=== PATIENT | male | born 1930 | race Caucasian/White ===

== ENCOUNTER → 2018-01-05 | Outpatient (CLI) | payer OTHER, BC ==
--- NOTE | 2018-01-05 11:32 | DIAGNOSTIC IMAGING REPORT ---
LUMBAR SPINE WITHOUT CT DOSE: 448.75 mGycm HISTORY: Trauma. Pain. COMPRESSION FX UNSPECIFIED TECHNIQUE: Multiaxial CT images of the lumbar spine were performed and reformatted in the sagittal and coronal plane without the use of contrast. A dose lowering technique was utilized adhering to the principles of ALARA. COMPARISON: None. FINDINGS: Moderate compression deformity L1. Estimated loss vertebral body height is 50%. Partial retropulsion of the posterior margin of the L1 vertebral body x 5 mm. No major compromise of the spinal canal. Considerable degenerative disc change throughout the entire lumbar region. Operative changes consistent with posterior laminectomy and fusion from L4 through S1. No additional compression deformity. Moderate narrowing of the neuroforamina bilaterally at the L1-L2 level. IMPRESSION: 1. 50% compression deformity L1. 2. 5 mm posterior displacement of the posterior margin of L1. 3. No significant compromise of the spinal canal. 4. Moderate multifactorial narrowing of the neuroforamina bilaterally at L1-2. 5. Degenerative and postoperative change throughout the remainder the lumbar region. The above report was generated using voice recognition software. It may contain grammatical, syntax or spelling errors. Electronically signed by: Patrick Kowalski M.D. 01/05/2018 11:31 AM Dictated Date/Time: 01/05/2018 11:24 AM
== END | disposition home or self-care (01) ==
LOC: C.CTS 10:53
PROVIDERS: ATTEND Family Medicine
DX: S32.000G Wedge compression fracture of unspecified lumbar vertebra, subsequent encounter for fracture with delayed healing (principal); X58.XXXD Exposure to other specified factors, subsequent encounter

== ENCOUNTER 2018-10-25 02:50 | Inpatient (IN) ==
--- OUTSIDE RECORDS SUMMARY | 2018-10-25 05:16 | External Medical Summary | Continuity of Care Document ---
:1930 Author Name Felicia Lion, Provider Address Unavailable Unavailable , Care Team Providers Name Role Phone Matthias KATZ M.D., E. 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 12-Apr-2018 13:45 Encounter Diagnosis: Problem not documented
[2018-10-25] MEDS ORDERED: MoRPHine SULFATE 4 MG/ML 1 ML CARP\\VIAL IV PRN ×2 (05:17→16:20)
[2018-10-25] MEDS ORDERED: TRAMADOL HCL 50 MG TABLET PO PRN (05:17)
[2018-10-25] MEDS ORDERED: NITROGLYCERIN SL 0.4 MG/TAB TAB SL PRN (05:17)
[2018-10-25] MEDS ORDERED: ACETAMINOPHEN 325 MG TAB PO PRN (05:17)
[2018-10-25] MEDS ORDERED: PROMETHAZINE HCL 12.5 MG in SODIUM CHLORIDE 0.9% 50 ML IV PRN (05:17)
[2018-10-25] MEDS ORDERED: SODIUM CHLORIDE 0.45 % 1,000 ML IV SCH (06:00)
[2018-10-25 06:09] LABS: Basophils # (auto) 0.02 K/uL (0-0.2); Basophils % (auto) 0.2 %; Hemoglobin 14.8 g/dL (14.0-18.0); Immature Granulocytes # (auto) 0.03 K/uL (0.00-0.02); Immature Granulocytes % (auto) 0.2 %; Lymphocytes # (auto) 1.12 K/uL (1.2-3.4); Lymphocytes % (auto) 8.9 %; Mean Corpuscular Hgb Conc 34.4 g/dL (32-36); Mean Corpuscular Volume 93.1 fL (80-100); Mean Platelet Volume 11.1 fL (7.4-10.4); Monocytes # (auto) 1.03 K/uL (0.11-0.59); Monocytes % (auto) 8.2 %; Neutrophils # (auto) 10.32 K/uL (1.4-6.5); Neutrophils % (auto) 82.5 %; Platelet Count 128 K/uL (130-400); RDW Coefficient of Variation 14.2 % (11.5-14.5); RDW Standard Deviation 48.3 fL (36.4-46.3); Red Blood Count 4.62 M/uL (4.7-6.1); White Blood Count 12.52 K/uL (4.8-10.8)
[2018-10-25 06:39] LABS: Albumin Level 3.4 gm/dl (3.4-5.0); BUN Creatinine Ratio 15.1 (10-20); Calcium 8.1 mg/dl (8.5-10.1); Creatinine Clr Calc Pharmacy 45.1 ml/min; Est GFR (African American) 70.1; Est GFR (Non-African American) 60.5; Magnesium 1.7 mg/dl (1.8-2.4); Potassium 4.1 mmol/L (3.5-5.1)
[2018-10-25 06:50] LABS: Albumin Globulin Ratio 1.1 (0.9-2); Bilirubin,Total 0.6 mg/dl (0.2-1); Globulin 3.1 gm/dl (2.5-4.0); Total Protein 6.5 gm/dl (6.4-8.2)
[2018-10-25] MEDS ORDERED: MAGNESIUM SULFATE / D5W 1 GM/100 ML BAG IV STA (07:01)
--- NOTE | 2018-10-25 07:02 | History & Physical Report ---
Date of Service October 25, 2018 Assessment & Plan (1) Sepsis: Secondary to acute cholecystitis sinoatrial dysfunction status post PPM, paced rhythm Elevated BP likely chronic hypertension given cardiomegaly on imaging prostate cancer status post radiation, gout Hyperglycemia rule out DM past tobacco/alcohol abuse Medical telemetry Follow cultures from [facility], IV Zosyn Surgery consult RE cholecystitis Initiate lisinopril for hypertension Check hemoglobin A1c DVT prophylaxis SCDs RE possible surgery Recommend pharmacologic anticoagulation with Lovenox 30 mg SQ daily once bleeding risk is deemed to be minimal and negligible pending Surgery eval. Full code History of Present Illness Chief Complaint: Cholecystitis [facility] History obtained from patient, family, and records. Medical history significant for sinoatrial dysfunction status post PPM, prostate cancer status post radiation, gout, restless leg syndrome, mood disorder, past tobacco/alcohol abuse. Patient noted junky cough later noted to be dry symptoms the last 2 weeks without chest pain, shortness of breath, fever chills. Patient stated to see PCP next week. Last night after a salad dinner, patient experience achy midepigastric pain followed by nausea and emesis. Intensity of 10. Patient brought to [facility] ER. WBC noted to be 11, lactic acid was 2.1, LFTs and lipase were normal. Blood cultures obtained. CT chest showed bilateral bibasilar atelectatic pulmonary changes with associated groundglass densities. Cardiomegaly. No pulmonary embolism, sliding hiatal hernia. CT abdomen pelvis: Suspect developing acute cholecystitis. rectosigmoid junction thickening under distention versus mild colitis., No aortic dissection. Patient received Azithromycin, Unasyn at the ER. Patient requested transfer to [facility] for surgical evaluation. 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 Allergies Allergy/AdvReac Type Severity Reaction Status Date / Time aspirin AdvReac Unknown Verified 03/28/18 08:07 Home Medications Home Medications Medication Instructions Recorded Confirmed Type allopurinol 300 mg PO DAILY 03/14/18 10/25/18 History escitalopram oxalate [Lexapro] 10 mg PO DAILY 03/14/18 10/25/18 History Past Med/Surg History Medical History Hypertension LATONIA on CPAP Pacemaker (Acute) Prostate cancer (Acute) Surgical History H/O thumb surgery (Acute) History of back surgery (Acute) Social History Preferred Language: Tunisian Communication Ability: Effective Fruit Or Nut Grower Required: No Beliefs That Will Affect Care: None Current Living Situation: Spouse Other Information That Helps Us Care for You: No Feels Safe at Home: Yes Safety Concerns: Feels Safe At This Time Smoking Status: Never smoker Hx Alcohol Use: No Hx Substance Use: No Review of Systems Review of Systems: As per HPI, all 10 systems reviewed, all other ROS negative Physical Exam Physical Exam: GENERAL: Comfortable, slightly hard of hearing, no respiratory distress SKIN: Normal color, warm HEENT: [place] palpebral conjunctivae, no ptosis, dry buccal mucosa, nasal cannula in place NECK : Supple, no tenderness CHEST : Decreased breath sounds , no tenderness HEART : RRR, no obvious murmurs ABDOMEN: Some distention, nontender EXTREMITIES : No LE swelling/tenderness, no other conspicuous deformities noted NEUROLOGIC : Coherent, no facial asymmetry, mild hearing impairment, no other gross focality Results & Data Vital Signs (Past 12 Hours) Vital Signs Temp Pulse Pulse Resp BP Pulse Ox 10/25/18 06:19 65 10/25/18 05:31 36.9 C 62 20 163/74 H 96 10/25/18 05:15 36.9 C 62 20 163/74 H 96 Laboratory Results Laboratory Results WBC 12.52 K/uL (4.8-10.8) H 10/25/18 05:59 RBC 4.62 M/uL (4.7-6.1) L 10/25/18 05:59 Hgb 14.8 g/dL (14.0-18.0) 10/25/18 05:59 Hct 43.0 % (42-52) 10/25/18 05:59 MCV 93.1 fL (80-100) 10/25/18 05:59 MCH 32.0 pg (25-34) 10/25/18 05:59 MCHC 34.4 g/dL (32-36) 10/25/18 05:59 RDW Std Deviation 48.3 fL (36.4-46.3) H 10/25/18 05:59 RDW Coeff of Tom 14.2 % (11.5-14.5) 10/25/18 05:59 Plt Count 128 K/uL (130-400) L 10/25/18 05:59 MPV 11.1 fL (7.4-10.4) H 10/25/18 05:59 Immature Gran % (Auto) 0.2 % 10/25/18 05:59 Neut % (Auto) 82.5 % 10/25/18 05:59 Lymph % (Auto) 8.9 % 10/25/18 05:59 [place] % (Auto) 8.2 % 10/25/18 05:59 Eos % (Auto) 0.0 % 10/25/18 05:59 Baso % (Auto) 0.2 % 10/25/18 05:59 Immature Gran # (Auto) 0.03 K/uL (0.00-0.02) H 10/25/18 05:59 Neut # (Auto) 10.32 K/uL (1.4-6.5) H 10/25/18 05:59 Lymph # (Auto) 1.12 K/uL (1.2-3.4) L 10/25/18 05:59 [place] # (Auto) 1.03 K/uL (0.11-0.59) H 10/25/18 05:59 Eos # (Auto) 0.00 K/uL (0-0.5) 10/25/18 05:59 Baso # (Auto) 0.02 K/uL (0-0.2) 10/25/18 05:59 Sodium 138 mmol/L (136-145) 10/25/18 05:59 Potassium 4.1 mmol/L (3.5-5.1) 10/25/18 05:59 Chloride 106 mmol/L (98-107) 10/25/18 05:59 Carbon Dioxide 26 mmol/L (21-32) 10/25/18 05:59 6.0 (3-11) 10/25/18 05:59 BUN 17 mg/dl (7-18) 10/25/18 05:59 1.10 mg/dl (0.6-1.4) 10/25/18 05:59 Est Cr Clr Drug Dosing 45.1 ml/min 10/25/18 05:59 Est GFR ( Amer) 70.1 10/25/18 05:59 Est GFR (Non-Af Amer) 60.5 10/25/18 05:59 15.1 (10-20) 10/25/18 05:59 Glucose 155 mg/dl (70-99) H 10/25/18 05:59 1.9 mmol/L (0.4-2.0) 10/25/18 05:59 Calcium 8.1 mg/dl (8.5-10.1) L 10/25/18 05:59 Magnesium 1.7 mg/dl (1.8-2.4) L 10/25/18 05:59 0.6 mg/dl (0.2-1) 10/25/18 05:59 AST 18 U/L (15-37) 10/25/18 05:59 ALT 17 U/L (12-78) 10/25/18 05:59 88 U/L (45-117) 10/25/18 05:59 6.5 gm/dl (6.4-8.2) 10/25/18 05:59 3.4 gm/dl (3.4-5.0) 10/25/18 05:59 3.1 gm/dl (2.5-4.0) 10/25/18 05:59 1.1 (0.9-2) 10/25/18 05:59 TSH 1.550 uIu/ml (0.300-4.500) 10/25/18 05:[address] angios chest, abdomen and pelvis as per HPI EKG as per my interpretation ([facility] 10/25/2018) : Rate 65, paced rhythm
[2018-10-25 07:21] LABS: Estimated Average Glucose 143 mg/dl; Hemoglobin A1C 6.6 % (4.5-5.6)
[2018-10-25] MEDS ORDERED: PIPERACILL/TAZOBAC CONSULT ACTIVE PRN (07:28)
[2018-10-25] MEDS ORDERED: PIPERACILLIN/TAZOBACTAM 4.5 GM in DEXTROSE 5% 100 ML IV STA (07:30)
[2018-10-25] MEDS: SODIUM CHLORIDE 0.9% 1000ML 1,000 ML IV SCH ×2 (07:32→16:39)
[2018-10-25] MEDS ORDERED: LISINOPRIL 2.5 MG TAB PO SCH (08:00)
--- NOTE | 2018-10-25 11:16 | Ultrasound Report ---
US gallbladder HISTORY: Abnormal CT exam. ? cholecystitis on CT COMPARISON: None. FINDINGS: Gallbladder contains multiple gallstones. Gallbladder jordan 4 mm. There is a trace amount of perichol ecystic fluid. Common bile duct is 6 mm. Liver is uniform throughout. The pancreas and right kidney are unremarkable . IMPRESSION: 1. Ultrasound findings of acute cholecystitis. 2. Gallstones as well as pericholecystic fluid are present. 3. Normal caliber bile ducts. The above report was generated using voice recognition software. It may contain grammatical, syntax or spelling errors. Electronically signed by: Patrick Kowalski M.D. 10/25/2018 11:15 AM
--- NOTE | 2018-10-25 12:26 | Surgery Consultation ---
Date of Consultation October 25, 2018 Assessment & Plan (1) Acute cholecystitis: Ultrasound confirms acute cholecystitis, will plan for laparoscopic cholecystectomy today by Dr. Gonzalez. Supervising Physician Co-Signing Physician Notes Patient seen and examined, agree with above. 88-year-old male transferred from [facility] for evaluation of cholecystitis. Ultrasound confirms cholelithiasis with acute cholecystitis. Plan for laparoscopic cholecystectomy, possible cholangiogram, possible open. The risks the procedure were discussed to include but not limited to bleeding, infection, conversion to open, damage to surrounding structures including bile ducts, retained stone, need for future khoury of surgery, and the risk of anesthesia. History of Present Illness Attending Physician: Krista Malagon MD History of Present Illness 88 y/o male with epigastric pain rather sudden onset last night after eating a salad at dinner. Made himself vomit with no relief of symptoms. Went to [place] ER was transferred here for possible acute cholecystitis on CT. No previous RUQ pain or epigastric pain, or fatty food intolerance. No previous abdominal surgery. Allergies Allergy/AdvReac Type Severity Reaction Status Date / Time aspirin AdvReac Unknown Verified 03/28/18 08:07 Home Medications Home Medications Medication Instructions Recorded Confirmed Type allopurinol 300 mg PO DAILY 03/14/18 10/25/18 History escitalopram oxalate [Lexapro] 10 mg PO DAILY 03/14/18 10/25/18 History Patient History Medical History Hypertension LATONIA on CPAP Pacemaker (Acute) Prostate cancer (Acute) Surgical History H/O thumb surgery (Acute) History of back surgery (Acute) Social History Preferred Language: Somali Communication Ability: Effective Senior Security Analyst Required: No Beliefs That Will Affect Care: None Current Living Situation: Spouse Other Information That Helps Us Care for You: No Feels Safe at Home: Yes Safety Concerns: Feels Safe At This Time Smoking Status: Never smoker Hx Alcohol Use: No Hx Substance Use: No Review of Systems Constitutional: no fever, no chills and no anorexia Respiratory: no cough and no pain on inspiration Cardiovascular: no chest pain and no chest pain at rest Gastrointestinal: + abdominal pain, + nausea and + vomiting; no bloating Physical Exam Constitutional: WD/WN, vitals as above no acute distress Respiratory: normal respiratory effort, lungs clear to auscultation Cardiovascular: RRR, no murmur, no edema Gastrointestinal (Abdomen): Inspection/Auscultation: abdomen not distended Percussion/Palpation: + abdomen tender (mild RUQ) and abdomen soft Skin: no rashes, warm and dry Results & Data Vital Signs (Past 12 Hours) Vital Signs Temp Pulse Pulse Pulse Resp BP BP 10/25/18 11:26 36.9 C 67 18 150/72 H 10/25/18 08:02 63 10/25/18 07:29 36.9 C 56 L 18 164/75 H 10/25/18 06:19 65 10/25/18 05:31 36.9 C 62 20 163/74 H 10/25/18 05:15 36.9 C 62 20 163/74 H Pulse Ox 10/25/18 11:26 94 10/25/18 08:02 10/25/18 07:29 93 10/25/18 06:19 10/25/18 05:31 96 10/25/18 05:15 96 Diagnostic Findings US gallbladder HISTORY: Abnormal CT exam. ? cholecystitis on CT COMPARISON: None. FINDINGS: Gallbladder contains multiple gallstones. Gallbladder jordan 4 mm. There is a trace amount of pericholecystic fluid. Common bile duct is 6 mm. Liver is uniform throughout. The pancreas and right kidney are unremarkable. IMPRESSION: 1. Ultrasound findings of acute cholecystitis. 2. Gallstones as well as pericholecystic fluid are present. 3. Normal caliber bile ducts. The above report was generated using voice recognition software. It may contain grammatical, syntax or spelling errors. Electronically signed by: Patrick Kowalski M.D. 10/25/2018 11:15 AM
--- NOTE | 2018-10-25 12:34 | Anesthesiology Consultation ---
Date of Service October 25, 2018 Assessment & Plan (1) Encounter for pre-operative examination: Chart Review Chart Review: Acceptable Risk for Surgery ASA ASA3 Proposed Anesthesia Anesthesia Type: General History Surgery Operation Date: 10/25/18 11:00 Proposed Procedures p Laparoscopic Cholecystectomy - Naldo Gonzalez DO, FACS Height/Weight Height: 5 ft 7 in Weight: 68.039 kg Allergies Allergy/AdvReac Type Severity Reaction Status Date / Time aspirin AdvReac Unknown Verified 03/28/18 08:07 Medications Home Medications Medication Instructions Recorded Confirmed Last Taken allopurinol 300 mg PO DAILY 03/14/18 10/25/18 Unknown escitalopram oxalate [Lexapro] 10 mg PO DAILY 03/14/18 10/25/18 Unknown Active Medications Generic Name Dose Route Start Last Admin Trade Name Freq PRN Reason Stop Dose Admin Sodium Chloride 1,000 mls @ 60 mls/hr 10/25/18 07:15 10/25/18 09:23 Nss 1000ml IV 11/24/18 07:14 60 mls/hr .[id number] ALICE Infusion Past Medical History Medical History Hypertension LATONIA on CPAP Pacemaker (Acute) Prostate cancer (Acute) Past Surgical History Surgical History H/O thumb surgery (Acute) History of back surgery (Acute) Social History Smoking Status: Never smoker Hx Alcohol Use: No Hx Substance Use: No Physical Exam Vital Signs Last Vital Signs Temp 36.9 C 10/25/18 11:26 Pulse 67 10/25/18 11:26 Resp 18 10/25/18 11:26 BP 150/72 H 10/25/18 11:26 Pulse Ox 94 10/25/18 11:26 Testing Electrocardiogram Date: 10/25/18 apaced, nonspecific ST and T wave changes, HR 62 Other Testing Laboratory Tests 10/25/18 10/25/18 10/25/18 05:59 05:59 05:59 WBC 12.52 H Hgb 14.8 Plt Count 128 L Sodium 138 Potassium 4.1 BUN 17 Creatinine 1.10 Glucose 155 H Hemoglobin A1c 6.6 H
[2018-10-25] MEDS ORDERED: LIDOCAINE HCL 2% 2 ML VIAL/AMP(20MG/ML) INFIL ONE (12:36)
[2018-10-25] MEDS ORDERED: PROPOFOL IV EMULSION 10 MG/ML 20 ML VIAL IV ONE (12:36)
[2018-10-25] MEDS ORDERED: ROCURONIUM BROMIDE 10 MG/ML 5 ML VIAL ONE (12:36)
[2018-10-25] MEDS ORDERED: fentaNYL citrate 100 MCG/2 ML VIAL ONE ×2 (12:37→14:35)
[2018-10-25] MEDS ORDERED: BUPIVACAINE 0.5 % 5 MG/1 ML MPF 30ML VIAL ONE (12:41)
[2018-10-25] MEDS: PIPERACILLIN/TAZOBACTAM 3.375 GM in DEXTROSE 5% 100 ML IV SCH ×2 (13:28→21:47)
[2018-10-25] MEDS ORDERED: ACETAMINOPHEN 1000 MG/100 ML IV IV ONE (13:52)
[2018-10-25] MEDS ORDERED: ONDANSETRON INJ 2 MG/ML 2 ML VIAL ONE (14:14)
[2018-10-25] MEDS ORDERED: VASOPRESSIN 20 UNIT/ML VIAL ONE (14:14)
[2018-10-25] MEDS ORDERED: PHENYLEPHRINE 100MCG/ML 5ML SYR ONE (14:14)
[2018-10-25] MEDS ORDERED: NEOSTIGMINE METHYLSULFATE 5 MG/5 ML SYR ONE (14:14)
[2018-10-25] MEDS ORDERED: ESMOLOL HCL INJ 10 MG/ML 10ML VIAL IV ONE (14:14)
[2018-10-25] MEDS ORDERED: GLYCOPYRROLATE 0.2 MG/ML VIAL ONE (14:14)
[2018-10-25] MEDS: ALLOPURINOL 300 MG TAB PO SCH (14:22)
[2018-10-25] MEDS: ESCITALOPRAM OXALATE 10 MG TAB PO SCH (14:22)
--- NOTE | 2018-10-25 14:50 | Operative Report ---
Post Operative Report Pre & Post Diagnosis Operation Date: 10/25/18 11:00 Pre-Op Diagnosis: Acute cholecystitis Post-Op Diagnosis: Acute cholecystitis Procedure Operation Date: 10/25/18 11:00 Actual Procedures p Laparoscopic Cholecystectomy - Naldo Gonzalez DO, TIM Surgeon Naldo Gonzalez DO, TIM Drier Transfer Car Operator Marshal Moody Estimated Blood Loss 15 Findings Consistent with Post-Op Diagnosis Significant inflammation of the gallbladder. Aspirated to assist with retraction. Critical view of safety obtained, cystic duct and artery doubly clipped and divided. Additional posterior branches of the cystic artery clipped and divided. Subxiphoid incision extended to allow for removal of the gallbladder. Hemostasis good. Specimens Gallbladder Anesthesia Type General Complications none Disposition Accompanied Patient To Recovery: No Disposition: Recovery Room Indications 88-year-old male transferred from [facility] for acute cholecystitis, plan for laparoscopic cholecystectomy, possible cholangiogram, possible open. The risks of the procedure were discussed, all questions were answered, and the patient agreed to proceed with surgery as planned. Description of Procedure The patient was properly identified, consented, and taken to the operating room where he was placed in the supine position. General endotracheal anesthesia was induced. SCDs and a safety belt were placed. Preoperative antibiotics were administered. The patient's abdomen was prepped and draped in the standard sterile fashion. A surgical timeout was performed and all parties were in agreement that this was the correct patient and procedure to be performed and we continued as planned. An incision was made superior and to the left of the umbilicus overlying the rectus muscle and the Veress needle was inserted. Saline drop test confirmed entry into the peritoneum. The abdomen was insufflated with carbon dioxide which the patient tolerated without incident. The abdomen was then entered using the Optiview technique and a 5 mm trocar. The laparoscope was inserted and no damage from initial trocar or Veress needle placement was noted, no gross abnormalities were noted within the 4 quadrants of the abdomen. An 11 mm port was placed in the subxiphoid position and two 5 mm ports were then placed in the right subcostal position. The patient was placed in reverse Trendelenburg position and rotated towards the left. The gallbladder was significantly inflamed. We aspirated the gallbladder to allow for retraction. The dome of the gallbladder was retracted towards the left upper quadrant and the infundibulum was retracted toward the right lower quadrant revealing Calot's triangle. Peritoneal attachments were taken down with electrocautery and blunt dissection. The cystic duct and artery were circumferentially dissected. A window of safety was obtained showing the cystic duct entering the gallbladder with no aberrant structures noted. The cystic duct and artery were doubly clipped and divided. There were 2 small posterior branches of the cystic artery were clipped and divided. The gallbladder was then lifted off the gallbladder fossa with electrocautery. The gallbladder was placed in an Endo Catch bag and removed through the subxiphoid port site. Both the skin and fascial incisions need to be extended to allow for the gallbladder to be removed. Upon palpation of the gallbladder there were multiple small to large stones filling the entirety of the gallbladder. The right upper quadrant was irrigated and hemostasis was found to be good. 5 mm trochars were removed under direct visualization and the abdomen was allowed to collapse. The subxiphoid port site fascia was closed with 0 Vicryl interrupted [id number] suture. The wound was irrigated, and the skin of all ports was closed with 4-0 Monocryl subcuticular sutures. Dermabond was placed over the wounds. The patient was extubated in the operating room and taken to the PACU where he recovered without apparent incident. All sponge, instrument and needle counts were correct at the conclusion of the procedure. The patient tolerated the procedure well. The physician's hearing aid assistant was present and scrubbed for the entirety of the case and was essential in positioning the patient, prepping and draping, retraction and exposure, driving the laparoscope, removal of the gallbladder, closure the incisions, and placement of the dressings. I attest to the content of the Intraoperative Record and any orders documented therein. Any exceptions are noted below.
[2018-10-25] MEDS ORDERED: ePHEDrine sulfate 50 MG/ML AMP IV PRN (15:46)
[2018-10-25] MEDS ORDERED: ATROPINE SULFATE 0.1 MG/ML 10ML SYR IV PRN (15:46)
--- NOTE | 2018-10-25 15:49 | Anesthesiology Progress Note ---
Date of Service October 25, 2018 Anesthesia Post Procedure Vital Signs Vital Signs: Temp Pulse Pulse Pulse Pulse Resp BP 10/25/18 15:35 70 21 158/69 H 10/25/18 15:25 36.7 C 69 18 144/90 H 10/25/18 15:15 72 20 154/72 H 10/25/18 15:05 71 21 149/73 H 10/25/18 14:58 36.6 C 85 18 152/71 H 10/25/18 12:56 36.9 C 68 20 151/70 H 10/25/18 11:26 36.9 C 67 18 150/72 H 10/25/18 08:02 63 10/25/18 07:29 36.9 C 56 L 18 10/25/18 06:19 65 10/25/18 05:31 36.9 C 62 20 10/25/18 05:15 36.9 C 62 20 BP Pulse Ox 10/25/18 15:35 95 10/25/18 15:25 97 10/25/18 15:15 97 10/25/18 15:05 97 10/25/18 14:58 96 10/25/18 12:56 94 10/25/18 11:26 94 10/25/18 08:02 10/25/18 07:29 164/75 H 93 10/25/18 06:19 10/25/18 05:31 163/74 H 96 10/25/18 05:15 163/74 H 96 Pain Intensity Abdomen: Pain Intensity: 0 Transfer of Care Handoff Completed per policy Notes Mental Status: alert / awake / arousable and participated in evaluation Patient Amnestic to Procedure: Yes Nausea / Vomiting: adequately controlled Pain: adequately controlled Airway Patency, RR, SpO2: stable & adequate BP & HR: stable & adequate Hydration State: stable & adequate Anesthetic Complications: no major complications apparent and Pt Satisfied with anesthetic care Notes: The patient is an 88 s/p laparoscopic cholecystectomy with Dr. Gonzalez. The patient is doing well in recovery with no complaints. He is saturating 95% on 3L nc which is similar to his preoperative baseline. He will be returning to telemetry for closer monitoring.
[2018-10-25] MEDS ORDERED: MoRPHine SULFATE 2 MG/ML CARP IV PRN (16:20)
--- NOTE | 2018-10-25 19:17 | Hospitalist Progress Note ---
Date of Service October 25, 2018 Assessment & Plan (1) Sepsis: Secondary to acute cholecystitis Lactic acid improved with IV fluids, patient is continue with Zosyn, Surgery consulted, status post laparoscopic cholecystectomy (2) Acute cholecystitis: Presented with right upper quadrant pain, acid with sepsis, elevated lactic acid, fever chills Ultrasound of gallbladder: 1. Ultrasound finding of acute cholecystitis. 2. Gallstones as well as pericholecystic fluids are present Appreciate input from surgery Status post laparoscopic cholecystectomy today (3) Aspiration pneumonitis: Patient had severe right upper quadrant pain, nausea, Had self-induced vomiting: He inserted fingers back of the throat to induce vomiting as was having severe discomfort from abdominal bloating bloating and pain Concern for aspiration pneumonitis: CT Chest/abdomen pelvis done in [facility] shows possible groundglass opacity in the lung Continue empiric antibiotic with IV Zosyn Patient remains afebrile, no cough, hypoxia noted Patient does not have any nausea vomiting postoperatively, Order for clear liquid diet, with aspiration precaution Ordered for chest x-ray Requested medical records/CT imaging to be sent from [facility] (4) 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, heart rate stable (5) Hypertension: Blood pressure stable: We will hold lisinopril, To prevent dehydration,-in the setting of infection/sepsis/acute cholecystitis/the status post cholecystectomy CODE STATUS: Full code DVT prophylaxis: SCD and teds, patient will be encouraged to ambulate as recovers from anesthesia Disposition: Expected to be discharged home in next 24 to 48 hours when medically stable Subjective Patient seen preop: 2861 at 10 AM: Complains of right upper quadrant pain/discomfort, acid with nausea, no cough, afebrile, vitals remained stable Underwent laparoscopic cholecystectomy today Seen postoperatively after returning back to floor Patient was still groggy from anesthesia Able to say pain and discomfort on right upper quadrant is much improved, No cough, no hypoxia noted Physical Exam Constitutional: WD/WN, vitals as above no acute distress ENMT: Mouth: + dentures Mallampati Class: II Neck: normal visual inspection Respiratory: normal respiratory effort, lungs clear to auscultation normal respiratory effort Auscultation: + crackles (mild crackles left lung base) Cardiovascular: Rate/Rhythm: regular rate and regular rhythm Gastrointestinal (Abdomen): Inspection/Auscultation: + abdomen abnormal to inspection (Status post laparoscopic cholecystectomy, surgical incision site intact, no drainage, erythema, tenderness noted) and abdomen not distended Percussion/Palpation: abdomen soft Skin: no rashes, warm and dry Neurologic: PERRL, EOMI, accommodation nl, no face palsy, no dysarthria Psychiatric: Orientation: alert and oriented x 3 Results & Data Vital Signs (Past 12 Hours) Vital Signs Temp Pulse Pulse Pulse Pulse Pulse Resp 10/25/18 18:30 36.4 C L 75 18 10/25/18 17:30 36.4 C L 67 18 10/25/18 17:00 36.5 C 68 18 10/25/18 16:55 61 10/25/18 16:30 36.8 C 73 16 10/25/18 16:15 37 C 69 18 10/25/18 15:45 70 21 10/25/18 15:35 70 21 10/25/18 15:25 36.7 C 69 18 10/25/18 15:15 72 20 10/25/18 15:05 71 21 10/25/18 14:58 36.6 C 85 18 10/25/18 12:56 36.9 C 68 20 10/25/18 11:26 36.9 C 67 18 10/25/18 08:02 63 10/25/18 07:29 36.9 C 56 L 18 BP BP Pulse Ox 10/25/18 18:30 122/68 97 10/25/18 17:30 126/63 95 10/25/18 17:00 126/70 98 10/25/18 16:55 10/25/18 16:30 130/71 98 10/25/18 16:15 143/77 H 94 10/25/18 15:45 158/71 H 95 10/25/18 15:35 158/69 H 95 10/25/18 15:25 144/90 H 97 10/25/18 15:15 154/72 H 97 10/25/18 15:05 149/73 H 97 10/25/18 14:58 152/71 H 96 10/25/18 12:56 151/70 H 94 10/25/18 11:26 150/72 H 94 10/25/18 08:02 10/25/18 07:29 164/75 H 93 (1) Sepsis Sepsis type: sepsis due to unspecified organism Qualified Code(s): A41.9 - Sepsis, unspecified organism (2) Hypertension Hypertension type: essential hypertension Qualified Code(s): I10 - Essential (primary) hypertension
--- NOTE | 2018-10-25 19:46 | XRay Report ---
XR chest 1V portable HISTORY: aspiration pneumonitis COMPARISON: Chest 10/25/2018. FINDINGS: No pneumothorax or no pleural effusions. The heart is mildly enlarged. This remains unchang ed. Left-sided dual-chamber pacemaker. A few bibasilar linear densities suggesting subsegmental atele ctasis. Otherwise, no focal lung consolidations to suggest pneumonia. No evidence for pulmonary edema . Right subdiaphragmatic free air is noted. Moderate hiatus hernia. IMPRESSION: 1. No new focal lung consolidations to suggest pneumonia. 2. Right subdiaphragmatic free air. This is likely due to the recent cholecystectomy. 3. Moderate hiatus hernia, unchanged. Electronically signed by: Christian Newman M.D. 10/25/2018 7:45 PM
[2018-10-26] MEDS: PIPERACILLIN/TAZOBACTAM 3.375 GM in DEXTROSE 5% 100 ML IV SCH ×3 (05:10→22:07)
[2018-10-26 06:15] LABS: Basophils # (auto) 0.01 K/uL (0-0.2); Basophils % (auto) 0.1 %; Eosinophils # (auto) 0.02 K/uL (0-0.5); Eosinophils % (auto) 0.2 %; Hematocrit (blood only) 38.3 % (42-52); Hemoglobin 13.1 g/dL (14.0-18.0); Immature Granulocytes # (auto) 0.03 K/uL (0.00-0.02); Immature Granulocytes % (auto) 0.3 %; Lymphocytes # (auto) 1.43 K/uL (1.2-3.4); Lymphocytes % (auto) 13.1 %; Mean Corpuscular Hgb Conc 34.2 g/dL (32-36); Mean Corpuscular Volume 92.5 fL (80-100); Mean Platelet Volume 11.2 fL (7.4-10.4); Monocytes # (auto) 0.78 K/uL (0.11-0.59); Monocytes % (auto) 7.1 %; Neutrophils # (auto) 8.67 K/uL (1.4-6.5); Neutrophils % (auto) 79.2 %; Platelet Count 110 K/uL (130-400); RDW Coefficient of Variation 14.5 % (11.5-14.5); RDW Standard Deviation 49.1 fL (36.4-46.3); Red Blood Count 4.14 M/uL (4.7-6.1); White Blood Count 10.94 K/uL (4.8-10.8)
[2018-10-26 06:53] LABS: BUN Creatinine Ratio 14.2 (10-20); Creatinine Clr Calc Pharmacy 45.9 ml/min; Est GFR (African American) 71.6; Est GFR (Non-African American) 61.8; Magnesium 1.9 mg/dl (1.8-2.4); Potassium 3.9 mmol/L (3.5-5.1)
[2018-10-26] MEDS: OXYCODONE/ACETAMINOPHEN 5mg/325mg TAB PO PRN (08:05)
[2018-10-26] MEDS: ALLOPURINOL 300 MG TAB PO SCH (08:05)
[2018-10-26] MEDS: ESCITALOPRAM OXALATE 10 MG TAB PO SCH (08:05)
[2018-10-26] MEDS: SODIUM CHLORIDE 0.9% 1000ML 1,000 ML IV SCH (08:08)
--- NOTE | 2018-10-26 09:50 | Surgery Progress Note ---
Date of Service October 26, 2018 Assessment & Plan (1) Acute cholecystitis: POD 1 lap feli pain expected, had to enlarge incision to remove large stones advance diet as domitila may need another day in hospital ambulate Subjective some pain at subxiphoid incision, no nausea, tolerated clears Physical Exam Gastrointestinal (Abdomen): Percussion/Palpation: abdomen soft incisions clean, dry Results & Data Vital Signs (Past 12 Hours) Vital Signs Temp Pulse Pulse Resp BP Pulse Ox 10/26/18 09:47 36.8 C 64 18 136/63 95 10/26/18 07:27 36.6 C 80 19 112/64 95 10/26/18 04:12 36.5 C 66 18 123/66 95 10/26/18 03:52 71 10/25/18 23:11 36.7 C 77 20 123/73 96
[2018-10-26] MEDS ORDERED: METOPROLOL TARTRATE 1 MG/ML VIAL IV STA (16:37)
[2018-10-26] MEDS ORDERED: METOPROLOL TARTRATE 1 MG/ML VIAL IV ONE (16:38)
[2018-10-26] MEDS ORDERED: SODIUM CHLORIDE 0.9% 1000ML 250 ML IV ONE (16:51)
[2018-10-26] MEDS ORDERED: dilTIAZem HCl 5 MG/ML 5 ML VIAL IV STA (17:02)
--- NOTE | 2018-10-26 17:02 | Hospitalist Progress Note ---
Date of Service October 26, 2018 Assessment & Plan (1) Atrial fibrillation with RVR: No prior history of A. fib, No diagnosis noted postop laparoscopic cholecystectomy for acute cholecystitis Patient follows with [facility] cardiology Dr. Schultz: Office visit on 01/11/2018: Shows history of sinus node dysfunction, status dual- chamber post permanent pacemaker placement Pacemaker interrogation in 2018 showed appropriate function with an of battery life, Patient has not been on any cardiac meds, no beta-shayy or AV randi shayy agent Status post laparoscopic cholecystectomy for acute cholecystitis yesterday 10/25/2018 Patient had an uneventful postop recovery overnight and throughout today Developed rapid A. fib RVR with heart rate 160-170 Given IV Lopressor 2.5 mg x 1 no improvement Started with IV Cardizem drip, transferred to PCU Holding off anticoagulation for stroke prophylaxis, for recent postop status Patient will need full anticoagulation with IV heparin, need to discuss with surgery repeat twelve-lead EKG at 6:30 PM shows A. fib heart rate of 110 Patient should be started with IV heparin as soon as possible when it is acceptable from bleeding risk Patient denies of any anginal symptom except for palpitation Initial troponin negative, serial check every 6 hours Resting echo to rule out ACS-low suspicion without any signs symptoms of angina Paroxysmal A. fib possibly in the setting of acute illness Cardiology eval requested Case discussed with on-call cardiology Dr. Gao, Recommends to start patient on p.o. Lopressor 25 mg x 1 now, and then continue p.o. twice daily DC IV Cardizem drip 1 hour after giving first dose of 25 mg Lopressor, Need to discussed with surgery time to start with IV heparin safely Present on Admission?: No (2) Sepsis: Meds criteria for sepsis on admission: Secondary to acute cholecystitis Lactic acid improved with IV fluids, patient is continue with Zosyn, Surgery consulted, status post laparoscopic cholecystectomy Postoperative day 1, evaluated by surgery team earlier patient is continued with clears, has been tolerating well Developed rapid A. fib RVR this afternoon, requiring a transferring to PCU for IV Cardizem drip Stat lactic acid: Ordered 2, with elevated procalcitonin 2.2 Patient is continued with IV Zosyn, given IV fluid bolus for episode of hypotension after starting with IV Cardizem drip 2 weeks of blood culture ordered Continue IV Zosyn ID evaluation requested (3) Acute cholecystitis: Presented with right upper quadrant pain, acid with sepsis, elevated lactic acid, fever chills Ultrasound of gallbladder: 1. Ultrasound finding of acute cholecystitis. 2. Gallstones as well as pericholecystic fluids are present Appreciate input from surgery Status post laparoscopic cholecystectomy 10/25/2018 Developed rapid A. fib RVR this afternoon, stat labs shows mild elevation of lactic acid and procalcitonin, patient does not appear to be septic, Continue IV Zosyn, order for blood cultures will follow report, Surgery team updated, patient will be evaluated by Dr. Le later today (4) Aspiration pneumonitis: Patient had severe right upper quadrant pain, nausea, Had self-induced vomiting: He inserted fingers back of the throat to induce vomiting as was having severe discomfort from abdominal bloating bloating and pain Concern for aspiration pneumonitis: CT Chest/abdomen pelvis done in [facility] shows possible groundglass opacity in the lung Continue empiric antibiotic with IV Zosyn Patient remains afebrile, no cough, hypoxia noted Patient does not have any nausea vomiting postoperatively, Order for clear liquid diet, with aspiration precaution Chest x-ray does not show any evidence of infiltrate, Record obtained from [facility] ER (5) 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 fib RVR on postoperative day 1 of cholecystectomy Patient was initially given IV Cardizem drip, will be discontinued and transition to p.o. Lopressor Ordered for pacemaker interrogation Resting echocardiogram, cardiology evaluation Monitor in telemetry (6) Hypertension: Developed hypo-tension after IV Cardizem bolus Lisinopril has been kept on hold preop and postop Continue on p.o. Lopressor 25 mg twice daily for rapid A. fib RVR Monitor in PCU CODE STATUS: Full code DVT prophylaxis: SCD and teds, patient will be encouraged to ambulate as recovers from anesthesia Disposition: Patient is transferred to PCU room 210 For close monitoring of hemodynamics Update given to patient's Amisha Triplett for the change of status Subjective Developed A. fib RVR at approximately 4:30 PM, heart rate in 160/170 rapid irregular She denies of any chest pain, shortness of breath, does feel palpitation no dizzy spell some pain at substernal area/subxiphoid incision, no drainage, swelling noted Laparoscopic incision area appears to be healing well no nausea, tolerated clears Not passed any gas, no bowel movement yet Given 2.5 mg IV Lopressor, with minimum improvement of heart ferritin 140s, Blood pressure 119/58 patient is afebrile Stat EKG shows A. fib RVR heart rate 160, new diagnosis Ordered for normal saline to 250 mg IV bolus Patient started on IV Cardizem drip Order to transfer to PCU for cardiac monitoring cardiology consulted IV anticoagulation cannot be started, as patient is recent(within 24-hour) postop from laparoscopic cholecystectomy Physical Exam Constitutional: WD/WN, vitals as above no acute distress Eyes: + anicteric sclerae ENMT: Mouth: + dentures Neck: normal visual inspection Respiratory: normal respiratory effort, lungs clear to auscultation normal respiratory effort Auscultation: + crackles (mild crackles left lung base) Cardiovascular: Rate/Rhythm: + tachycardic and + irregularly irregular Gastrointestinal (Abdomen): Inspection/Auscultation: + abdomen abnormal to inspection (Status post laparoscopic cholecystectomy, surgical incision site intact, no drainage, erythema, tenderness noted) and abdomen not distended Percussion/Palpation: abdomen soft Skin: no rashes, warm and dry Neurologic: PERRL, EOMI, accommodation nl, no face palsy, no dysarthria Psychiatric: Orientation: alert and oriented x 3 Results & Data Vital Signs (Past 12 Hours) Vital Signs Temp Pulse Pulse Resp BP Pulse Ox 10/26/18 16:47 161 H 10/26/18 16:28 36.6 C 153 H 18 119/58 L 91 10/26/18 14:59 36.6 C 62 18 121/70 92 10/26/18 12:02 36.8 C 70 18 132/73 93 10/26/18 09:47 36.8 C 64 18 136/63 95 10/26/18 07:27 36.6 C 80 19 112/64 95 (1) Sepsis Sepsis type: sepsis due to unspecified organism Qualified Code(s): A41.9 - Sepsis, unspecified organism (2) Hypertension Hypertension type: essential hypertension Qualified Code(s): I10 - Essential (primary) hypertension
[2018-10-26] MEDS ORDERED: dilTIAZem HCl 125 MG in DEXTROSE 5% 100 ML IV SCH ×2 (17:30→17:45)
[2018-10-26] MEDS ORDERED: LACTATED RINGER'S 250 ML IV ONE (17:51)
[2018-10-26] MEDS ORDERED: LACTATED RINGER'S 1,000 ML IV SCH (18:00)
[2018-10-26] MEDS ORDERED: METOPROLOL TARTRATE 25 MG TAB PO STA (18:12)
[2018-10-26 18:53] LABS: Hematocrit (blood only) 39.8 % (42-52); Hemoglobin 13.4 g/dL (14.0-18.0); Mean Corpuscular Volume 93.6 fL (80-100); Mean Platelet Volume 10.4 fL (7.4-10.4); Platelet Count 102 K/uL (130-400); RDW Coefficient of Variation 14.7 % (11.5-14.5); RDW Standard Deviation 49.7 fL (36.4-46.3); Red Blood Count 4.25 M/uL (4.7-6.1); White Blood Count 9.22 K/uL (4.8-10.8)
[2018-10-26 19:08] LABS: Mean Corpuscular Hgb Conc 33.7 g/dL (32-36)
[2018-10-26 19:14] LABS: BUN Creatinine Ratio 11.2 (10-20); Calcium 8.1 mg/dl (8.5-10.1); Creatinine Clr Calc Pharmacy 38.4 ml/min; Est GFR (African American) 57.8; Est GFR (Non-African American) 49.9; Magnesium 1.7 mg/dl (1.8-2.4); Potassium 3.6 mmol/L (3.5-5.1)
[2018-10-26] MEDS ORDERED: Heparin IV Low Dose *NO* Bolus IV SCH (20:02)
--- NOTE | 2018-10-26 20:06 | Surgery Progress Note ---
Date of Service I got a call from hospitalist, informed pt developed A-Fib this pump tender , pt was transfered to PICU, I saw pt at bedside, pt is doing better, pt feels so me sore on epigastric area, pt denies SOB, HR 75 is still A-Fib, WBC 9.2, the labs is reviewed, October 26, 2018 Assessment & Plan (1) Atrial fibrillation with RVR: S/P laparoscopic cholecystectomy POD 1 post-op developed A-Fib, now good control HR 75, normal WBC, can start heparin from surgical point continue treat A-fib repeat all labs in am, dental specialist should be consult if pt's condition is getting worse, D/W hospitalist Will F/U Subjective Developed A. fib RVR at approximately 4:30 PM, heart rate in 160/170 rapid irregular She denies of any chest pain, shortness of breath, does feel palpitation no dizzy spell some pain at substernal area/subxiphoid incision, no drainage, swelling noted Laparoscopic incision area appears to be healing well no nausea, tolerated clears Not passed any gas, no bowel movement yet Given 2.5 mg IV Lopressor, with minimum improvement of heart ferritin 140s, Blood pressure 119/58 patient is afebrile Stat EKG shows A. fib RVR heart rate 160, new diagnosis Ordered for normal saline to 250 mg IV bolus Patient started on IV Cardizem drip Order to transfer to PCU for cardiac monitoring cardiology consulted IV anticoagulation cannot be started, as patient is recent(within 24-hour) postop from laparoscopic cholecystectomy Physical Exam Constitutional: WD/WN, vitals as above well developed and well nourished Neck: trachea midline, no thyromegaly Respiratory: normal respiratory effort, lungs clear to auscultation normal respiratory effort Cardiovascular: RRR, no murmur, no edema A-fib, HR 75 Gastrointestinal (Abdomen): Percussion/Palpation: abdomen soft NT, ND all incsions intact, no redness, no drainage, Neurologic: awake Psychiatric: Orientation: alert and oriented x 3 Eye Contact: good eye contact Speech: normal rate/rhythm/volume of speech Results & Data Vital Signs (Past 12 Hours) Vital Signs Temp Pulse Pulse Pulse Resp BP Pulse Ox 10/26/18 18:59 36.7 C 110 H 20 107/74 92 10/26/18 18:00 112 H 101/64 92 10/26/18 17:45 157 H 88/63 L 92 10/26/18 17:40 37.7 C H 141 H 24 104/62 92 10/26/18 17:20 37.2 C 158 H 18 104/74 95 10/26/18 16:47 161 H 10/26/18 16:28 36.6 C 153 H 18 119/58 L 91 10/26/18 14:59 36.6 C 62 18 121/70 92 10/26/18 12:02 36.8 C 70 18 132/73 93 10/26/18 09:47 36.8 C 64 18 136/63 95 Laboratory Results Abnormal lab results 10/26/18 10/26/18 10/26/18 Range/Units 05:43 05:43 16:50 WBC 10.94 H (4.8-10.8) K/uL RBC 4.14 L (4.7-6.1) M/uL Hgb 13.1 L (14.0-18.0) g/dL Hct 38.3 L (42-52) % RDW Std Deviation 49.1 H (36.4-46.3) fL RDW Coeff of Tom (11.5-14.5) % Plt Count 110 L (130-400) K/uL MPV 11.2 H (7.4-10.4) fL Immature Gran # (Auto) 0.03 H (0.00-0.02) K/uL Neut # (Auto) 8.67 H (1.4-6.5) K/uL Roosevelt # (Auto) 0.78 H (0.11-0.59) K/uL Chloride 110 H (98-107) mmol/L Glucose 115 H (70-99) mg/dl Lactate 2.6 H* (0.4-2.0) mmol/L Calcium 8.0 L (8.5-10.1) mg/dl Magnesium (1.8-2.4) mg/dl Procalcitonin (0-0.5) ng/ml 10/26/18 10/26/18 10/26/18 Range/Units 16:50 18:30 18:30 WBC (4.8-10.8) K/uL RBC 4.25 L (4.7-6.1) M/uL Hgb 13.4 L (14.0-18.0) g/dL Hct 39.8 L (42-52) % RDW Std Deviation 49.7 H (36.4-46.3) fL RDW Coeff of Tom 14.7 H (11.5-14.5) % Plt Count 102 L (130-400) K/uL MPV (7.4-10.4) fL Immature Gran # (Auto) (0.00-0.02) K/uL Neut # (Auto) (1.4-6.5) K/uL Roosevelt # (Auto) (0.11-0.59) K/uL Chloride 112 H (98-107) mmol/L Glucose 144 H (70-99) mg/dl Lactate (0.4-2.0) mmol/L Calcium 8.1 L (8.5-10.1) mg/dl Magnesium 1.7 L (1.8-2.4) mg/dl Procalcitonin 2.13 H (0-0.5) ng/ml
[2018-10-26] MEDS: Heparin Adult LOW DOSE Wt-Based Dextrose 5% 25,000 units/500 mL IV SCH (20:56)
[2018-10-26 20:58] LABS: Basophils # (auto) 0.01 K/uL (0-0.2); Basophils % (auto) 0.1 %; Eosinophils # (auto) 0.07 K/uL (0-0.5); Eosinophils % (auto) 0.8 %; Hematocrit (blood only) 37.2 % (42-52); Hemoglobin 12.1 g/dL (14.0-18.0); Immature Granulocytes # (auto) 0.01 K/uL (0.00-0.02); Immature Granulocytes % (auto) 0.1 %; Lymphocytes # (auto) 1.26 K/uL (1.2-3.4); Lymphocytes % (auto) 13.6 %; Mean Corpuscular Volume 94.9 fL (80-100); Mean Platelet Volume 10.5 fL (7.4-10.4); Monocytes # (auto) 0.77 K/uL (0.11-0.59); Monocytes % (auto) 8.3 %; Neutrophils # (auto) 7.15 K/uL (1.4-6.5); Neutrophils % (auto) 77.1 %; Platelet Count 100 K/uL (130-400); RDW Coefficient of Variation 14.6 % (11.5-14.5); RDW Standard Deviation 50.2 fL (36.4-46.3); Red Blood Count 3.92 M/uL (4.7-6.1); White Blood Count 9.27 K/uL (4.8-10.8)
[2018-10-26 21:08] LABS: INR 1.3 (0.9-1.1); Partial Thromboplastin Ratio 1.4
[2018-10-26 21:16] LABS: Mean Corpuscular Hgb Conc 32.5 g/dL (32-36)
[2018-10-27] MEDS: OXYCODONE/ACETAMINOPHEN 5mg/325mg TAB PO PRN ×2 (02:30→20:49)
[2018-10-27 03:38] LABS: Partial Thromboplastin Ratio 1.9
[2018-10-27 03:40] LABS: Partial Thromboplastin Time 51.3 Seconds (21.0-31.0)
[2018-10-27 05:30] LABS: Mean Corpuscular Hgb Conc 32.4 g/dL (32-36); Mean Corpuscular Volume 94.4 fL (80-100); Mean Platelet Volume 10.9 fL (7.4-10.4); Platelet Count 102 K/uL (130-400); RDW Coefficient of Variation 14.5 % (11.5-14.5); RDW Standard Deviation 49.7 fL (36.4-46.3); Red Blood Count 3.92 M/uL (4.7-6.1); White Blood Count 8.12 K/uL (4.8-10.8)
[2018-10-27 05:48] LABS: BUN Creatinine Ratio 11.9 (10-20); Calcium 8.1 mg/dl (8.5-10.1); Creatinine Clr Calc Pharmacy 41.3 ml/min; Est GFR (African American) 63.1; Est GFR (Non-African American) 54.4; Magnesium 1.8 mg/dl (1.8-2.4); Potassium 3.7 mmol/L (3.5-5.1)
[2018-10-27] MEDS: PIPERACILLIN/TAZOBACTAM 3.375 GM in DEXTROSE 5% 100 ML IV SCH ×3 (06:31→21:00)
[2018-10-27] MEDS ORDERED: VANCOMYCIN CONSULT ACTIVE PRN (09:27)
[2018-10-27] MEDS ORDERED: VANCOMYCIN HCL 1,750 MG in SODIUM CHLORIDE 0.9% 500 ML IV STA (09:38)
[2018-10-27] MEDS ORDERED: PERFLUTREN LIPID MICROSPHERE (DEFINITY) IV ONE (09:45)
[2018-10-27] MEDS: ESCITALOPRAM OXALATE 10 MG TAB PO SCH (09:46)
[2018-10-27] MEDS: METOPROLOL TARTRATE 25 MG TAB PO SCH ×2 (09:47→20:49)
[2018-10-27] MEDS: ALLOPURINOL 300 MG TAB PO SCH (09:47)
--- NOTE | 2018-10-27 10:07 | Pharmacy Report ---
Pharmacy Abx Initial Consult - Date of Service October 27, 2018 - Pharmacy Dosing Scope Date of Consult: 10/27/18 Consultation requested by: Dr. Malagon Pharmacy is consulted to initiate Vancomycin IV dosing therapy, order appropriate labs and adjust drug dose/frequency. - Subjective The patient is a 88 year old M admitted on 10/25/18 05:13. - Objective Height: 5 ft 7 in Weight: 77 kg Vital Signs (Past 12hrs): Vital Signs Temp Pulse Pulse Pulse Resp BP BP 10/27/18 09:52 60 101/63 10/27/18 07:49 36.6 C 74 15 94/48 L 10/27/18 03:02 36.7 C 62 20 113/69 10/26/18 23:30 71 10/26/18 23:18 37.1 C 71 21 92/53 L Pulse Ox 10/27/18 09:52 10/27/18 07:49 91 10/27/18 03:02 93 10/26/18 23:30 10/26/18 23:18 95 Lab Results (24hrs): Laboratory Tests (24 Hours) 10/27/18 10/27/18 10/27/18 05:19 05:19 05:19 WBC 8.12 Neut # (Auto) Creatinine 1.20 Est Cr Clr Drug Dosing 41.3 Procalcitonin 1.73 H 10/26/18 10/26/18 10/26/18 23:08 20:43 18:30 WBC 9.27 Neut # (Auto) 7.15 H Creatinine 1.29 Est Cr Clr Drug Dosing 38.4 Procalcitonin 2.01 H 10/26/18 10/26/18 18:30 16:50 WBC 9.22 Neut # (Auto) Creatinine Est Cr Clr Drug Dosing Procalcitonin 2.13 H Micro Results: 10/26/18 18:30 Aerobic Blood Culture - Pending Blood Anaerobic Blood Culture - Pending 10/26/18 18:42 Aerobic Blood Culture - Pending Blood Anaerobic Blood Culture - Pending - Risk Factors for Resistance * Antimicrobial use within the last 90 days - Zosyn this admission - Assessment & Plan Assessment 88 year old M being empirically started on IV Vancomycin due to incr' lactic acid and elevated procalcitonin despite therapy with Zosyn for treatment of sepsis secondary to cholecystitis Plan Vancomycin IV * Estimated PK Parameters: Kurtis 0.038 hr-1, t1/2 18.2 hr * Loading dose: 1750 mg (~23 mg/kg) * Maintenance dose: 1250 mg IV (~16 mg/kg) every 24 hours * Goal trough level for sepsis : 15 to 20 mcg/mL * Given empiric indication, no trough level ordered for now. If therapy to be continued beyond 48 hours, will check level at that time. Pharmacy will continue to follow and will adjust dose/frequency as necessary. Thank you.
--- NOTE | 2018-10-27 11:10 | Cardiology Consultation ---
Date of Consultation October 27, 2018 Assessment & Plan (1) Paroxysmal atrial fibrillation with RVR: Patient is converted to sinus rhythm with oral metoprolol, IV diltiazem. We will continue oral metoprolol Patient's chads vas 2 score initially is low only elevated for age the will need to review echocardiogram and laboratory studies given mild elevation in troponin to determine indications for long-term anticoagulation Continue IV heparin for now (2) Hx of sinoatrial node dysfunction: Pacemaker functioning appropriately on telemetry Last interrogation July 2018 demonstrated good battery life 1-1/2 to 2 years duration expected. 47% atrial paced no ventricular paced (3) Acute cholecystitis: As per surgical intervention appears to be recovering (4) Elevated troponin: Question secondary to surgical and elevated heart rate demands versus underlying ischemic heart disease EKG and echocardiogram ordered for today History of Present Illness Reason for Consultation: Paroxysmal atrial fibrillation postop Requesting Physician: Dr. Malagon Attending Physician: Krista Malagon MD History of Present Illness Patient is an 88-year-old male's past history is notable for sick sinus syndrome with prior pacemaker insertion 01/14/2010 after sick sinus syndrome identified during hand surgery. [facility] - [place] XL DR 5826 dual-chamber device. He is done well since without other underlying cardiac disease pacemaker interrogations demonstrating predominantly atrial pacing Denies past history of tachyarrhythmias angina or congestive heart failure. Notes no history of valvular heart disease. 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 Notes no recent syncope or near syncope headache or visual changes. Patient is not diabetic and denies prior history of TIA or stroke renal or hepatic disease notes no history of vascular disease Patient presents this admission with evidence of acute cholelithiasis with sepsis clinically undergoing laparoscopic cholecystectomy 10/25/2018 uneventfully. Last evening while recovering patient lapsed into atrial fibrillation with rapid ventricular response treated with IV metoprolol IV diltiazem ultimately converting to sinus rhythm. Is been gone on oral metoprolol in my direction and is remained in sinus rhythm overnight. He is anticoagulated with heparin Rhythm on telemetry now intermittent atrial pacing Allergies Allergy/AdvReac Type Severity Reaction Status Date / Time aspirin AdvReac Unknown Verified 03/28/18 08:07 Home Medications Home Medications Medication Instructions Recorded Confirmed Type allopurinol 300 mg PO DAILY 10/03/18 05/16/19 History escitalopram oxalate [Lexapro] 10 mg PO DAILY 03/14/18 10/25/18 History amoxicillin-pot clavulanate 1 tab PO BID #10 tab 10/26/18 Rx [Augmentin] oxycodone-acetaminophen [Percocet] 1 - 2 tab PO Q4H PRN #15 tab 10/26/18 Rx Patient History Medical History Atrial fibrillation with RVR (Acute) Hypertension LATONIA on CPAP Pacemaker (Acute) Prostate cancer (Acute) Surgical History H/O thumb surgery (Acute) History of back surgery (Acute) Social History Preferred Language: Cuban Communication Ability: Effective Carton Filler Required: No Beliefs That Will Affect Care: None Current Living Situation: Spouse Other Information That Helps Us Care for You: No Feels Safe at Home: Yes Safety Concerns: Feels Safe At This Time Smoking Status: Never smoker Hx Alcohol Use: No Hx Substance Use: No Review of Systems Review of Systems: All systems reviewed & are unremarkable except as noted in HPI & below Physical Exam Constitutional: WD/WN, vitals as above Eyes: PERRL, conjunctivae normal, anicteric sclerae Neck: trachea midline, no thyromegaly Respiratory: Auscultation: + crackles (Left base which clear partially with cough) Cardiovascular: RRR, no murmur, no edema Heart Sounds: normal S1 and normal S2 Vessels: no JVD Extremities: no edema Gastrointestinal (Abdomen): Percussion/Palpation: + abdomen tender (Mild) and abdomen soft; no guarding Surgical incisions clean Musculoskeletal: no cyanosis or clubbing, extremities motor strength 5/5 Neurologic: PERRL, EOMI, accommodation nl, no face palsy, no dysarthria Psychiatric: A+Ox3, euthymic affect Results & Data Vital Signs (Past 12 Hours) Vital Signs Temp Pulse Pulse Pulse Resp BP BP 10/27/18 09:52 60 101/63 10/27/18 07:49 36.6 C 74 15 94/48 L 10/27/18 03:02 36.7 C 62 20 113/69 10/26/18 23:30 71 10/26/18 23:18 37.1 C 71 21 92/53 L Pulse Ox 10/27/18 09:52 10/27/18 07:49 91 10/27/18 03:02 93 10/26/18 23:30 10/26/18 23:18 95 Laboratory Results 10/27/18 10/27/18 10/27/18 Range/Units 05:19 05:19 05:19 WBC (4.8-10.8) K/uL RBC (4.7-6.1) M/uL Hgb (14.0-18.0) g/dL Hct (42-52) % MCV (80-100) fL MCH (25-34) pg MCHC (32-36) g/dL RDW Std Deviation (36.4-46.3) fL RDW Coeff of Tom (11.5-14.5) % Plt Count (130-400) K/uL MPV (7.4-10.4) fL Immature Gran % (Auto) % Neut % (Auto) % Lymph % (Auto) % [place] % (Auto) % Eos % (Auto) % Baso % (Auto) % Immature Gran # (Auto) (0.00-0.02) K/uL Neut # (Auto) (1.4-6.5) K/uL Lymph # (Auto) (1.2-3.4) K/uL [place] # (Auto) (0.11-0.59) K/uL Eos # (Auto) (0-0.5) K/uL Baso # (Auto) (0-0.2) K/uL PT (9.0-12.0) Seconds INR (0.9-1.1) APTT (21.0-31.0) Seconds PTT Ratio Sodium (136-145) mmol/L Potassium (3.5-5.1) mmol/L Chloride (98-107) mmol/L Carbon Dioxide (21-32) mmol/L Anion Gap (3-11) BUN (7-18) mg/dl Creatinine (0.6-1.4) mg/dl Est Cr Clr Drug Dosing ml/min Est GFR ( Amer) Est GFR (Non-Af Amer) BUN/Creatinine Ratio (10-20) Glucose (70-99) mg/dl Lactate 1.0 (0.4-2.0) mmol/L Calcium (8.5-10.1) mg/dl Magnesium (1.8-2.4) mg/dl Troponin I 0.261 H* (0-0.045) ng/ml Procalcitonin 1.73 H (0-0.5) ng/ml 10/27/18 10/27/18 10/27/18 Range/Units 05:19 05:19 03:08 WBC 8.12 (4.8-10.8) K/uL RBC 3.92 L (4.7-6.1) M/uL Hgb 12.0 L (14.0-18.0) g/dL Hct 37.0 L (42-52) % MCV 94.4 (80-100) fL MCH 30.6 (25-34) pg MCHC 32.4 (32-36) g/dL RDW Std Deviation 49.7 H (36.4-46.3) fL RDW Coeff of Tom 14.5 (11.5-14.5) % Plt Count 102 L (130-400) K/uL MPV 10.9 H (7.4-10.4) fL Immature Gran % (Auto) % Neut % (Auto) % Lymph % (Auto) % [place] % (Auto) % Eos % (Auto) % Baso % (Auto) % Immature Gran # (Auto) (0.00-0.02) K/uL Neut # (Auto) (1.4-6.5) K/uL Lymph # (Auto) (1.2-3.4) K/uL [place] # (Auto) (0.11-0.59) K/uL Eos # (Auto) (0-0.5) K/uL Baso # (Auto) (0-0.2) K/uL PT (9.0-12.0) Seconds INR (0.9-1.1) APTT 51.3 H* (21.0-31.0) Seconds PTT Ratio 1.9 Sodium 140 (136-145) mmol/L Potassium 3.7 (3.5-5.1) mmol/L Chloride 110 H (98-107) mmol/L Carbon Dioxide 24 (21-32) mmol/L Anion Gap 6.0 (3-11) BUN 14 (7-18) mg/dl Creatinine 1.20 (0.6-1.4) mg/dl Est Cr Clr Drug Dosing 41.3 ml/min Est GFR ( Amer) 63.1 Est GFR (Non-Af Amer) 54.4 BUN/Creatinine Ratio 11.9 (10-20) Glucose 97 (70-99) mg/dl Lactate (0.4-2.0) mmol/L Calcium 8.1 L (8.5-10.1) mg/dl Magnesium 1.8 (1.8-2.4) mg/dl Troponin I (0-0.045) ng/ml Procalcitonin (0-0.5) ng/ml 10/26/18 10/26/18 10/26/18 Range/Units 23:08 23:08 23:08 WBC (4.8-10.8) K/uL RBC (4.7-6.1) M/uL Hgb (14.0-18.0) g/dL Hct (42-52) % MCV (80-100) fL MCH (25-34) pg MCHC (32-36) g/dL RDW Std Deviation (36.4-46.3) fL RDW Coeff of Tom (11.5-14.5) % Plt Count (130-400) K/uL MPV (7.4-10.4) fL Immature Gran % (Auto) % Neut % (Auto) % Lymph % (Auto) % [place] % (Auto) % Eos % (Auto) % Baso % (Auto) % Immature Gran # (Auto) (0.00-0.02) K/uL Neut # (Auto) (1.4-6.5) K/uL Lymph # (Auto) (1.2-3.4) K/uL [place] # (Auto) (0.11-0.59) K/uL Eos # (Auto) (0-0.5) K/uL Baso # (Auto) (0-0.2) K/uL PT (9.0-12.0) Seconds INR (0.9-1.1) APTT (21.0-31.0) Seconds PTT Ratio Sodium (136-145) mmol/L Potassium (3.5-5.1) mmol/L Chloride (98-107) mmol/L Carbon Dioxide (21-32) mmol/L Anion Gap (3-11) BUN (7-18) mg/dl Creatinine (0.6-1.4) mg/dl Est Cr Clr Drug Dosing ml/min Est GFR ( Amer) Est GFR (Non-Af Amer) BUN/Creatinine Ratio (10-20) Glucose (70-99) mg/dl Lactate 1.2 (0.4-2.0) mmol/L Calcium (8.5-10.1) mg/dl Magnesium (1.8-2.4) mg/dl Troponin I 0.249 H* (0-0.045) ng/ml Procalcitonin 2.01 H (0-0.5) ng/ml 10/26/18 10/26/18 10/26/18 Range/Units 20:43 20:43 18:30 WBC 9.27 (4.8-10.8) K/uL RBC 3.92 L (4.7-6.1) M/uL Hgb 12.1 L (14.0-18.0) g/dL Hct 37.2 L (42-52) % MCV 94.9 (80-100) fL MCH 30.9 (25-34) pg MCHC 32.5 (32-36) g/dL RDW Std Deviation 50.2 H (36.4-46.3) fL RDW Coeff of Tom 14.6 H (11.5-14.5) % Plt Count 100 L (130-400) K/uL MPV 10.5 H (7.4-10.4) fL Immature Gran % (Auto) 0.1 % Neut % (Auto) 77.1 % Lymph % (Auto) 13.6 % [place] % (Auto) 8.3 % Eos % (Auto) 0.8 % Baso % (Auto) 0.1 % Immature Gran # (Auto) 0.01 (0.00-0.02) K/uL Neut # (Auto) 7.15 H (1.4-6.5) K/uL Lymph # (Auto) 1.26 (1.2-3.4) K/uL [place] # (Auto) 0.77 H (0.11-0.59) K/uL Eos # (Auto) 0.07 (0-0.5) K/uL Baso # (Auto) 0.01 (0-0.2) K/uL PT 13.0 H (9.0-12.0) Seconds INR 1.3 H (0.9-1.1) APTT 37.0 H (21.0-31.0) Seconds PTT Ratio 1.4 Sodium 142 (136-145) mmol/L Potassium 3.6 (3.5-5.1) mmol/L Chloride 112 H (98-107) mmol/L Carbon Dioxide 23 (21-32) mmol/L Anion Gap 7.0 (3-11) BUN 15 (7-18) mg/dl Creatinine 1.29 (0.6-1.4) mg/dl Est Cr Clr Drug Dosing 38.4 ml/min Est GFR ( Amer) 57.8 Est GFR (Non-Af Amer) 49.9 BUN/Creatinine Ratio 11.2 (10-20) Glucose 144 H (70-99) mg/dl Lactate (0.4-2.0) mmol/L Calcium 8.1 L (8.5-10.1) mg/dl Magnesium 1.7 L (1.8-2.4) mg/dl Troponin I (0-0.045) ng/ml Procalcitonin (0-0.5) ng/ml 10/26/18 10/26/18 10/26/18 Range/Units 18:30 17:09 16:50 WBC 9.22 (4.8-10.8) K/uL RBC 4.25 L (4.7-6.1) M/uL Hgb 13.4 L (14.0-18.0) g/dL Hct 39.8 L (42-52) % MCV 93.6 (80-100) fL MCH 31.5 (25-34) pg MCHC 33.7 (32-36) g/dL RDW Std Deviation 49.7 H (36.4-46.3) fL RDW Coeff of Tom 14.7 H (11.5-14.5) % Plt Count 102 L (130-400) K/uL MPV 10.4 (7.4-10.4) fL Immature Gran % (Auto) % Neut % (Auto) % Lymph % (Auto) % [place] % (Auto) % Eos % (Auto) % Baso % (Auto) % Immature Gran # (Auto) (0.00-0.02) K/uL Neut # (Auto) (1.4-6.5) K/uL Lymph # (Auto) (1.2-3.4) K/uL [place] # (Auto) (0.11-0.59) K/uL Eos # (Auto) (0-0.5) K/uL Baso # (Auto) (0-0.2) K/uL PT (9.0-12.0) Seconds INR (0.9-1.1) APTT (21.0-31.0) Seconds PTT Ratio Sodium (136-145) mmol/L Potassium (3.5-5.1) mmol/L Chloride (98-107) mmol/L Carbon Dioxide (21-32) mmol/L Anion Gap (3-11) BUN (7-18) mg/dl Creatinine (0.6-1.4) mg/dl Est Cr Clr Drug Dosing ml/min Est GFR ( Amer) Est GFR (Non-Af Amer) BUN/Creatinine Ratio (10-20) Glucose (70-99) mg/dl Lactate (0.4-2.0) mmol/L Calcium (8.5-10.1) mg/dl Magnesium (1.8-2.4) mg/dl Troponin I 0.026 (0-0.045) ng/ml Procalcitonin 2.13 H (0-0.5) ng/ml 10/26/18 Range/Units 16:50 WBC (4.8-10.8) K/uL RBC (4.7-6.1) M/uL Hgb (14.0-18.0) g/dL Hct (42-52) % MCV (80-100) fL MCH (25-34) pg MCHC (32-36) g/dL RDW Std Deviation (36.4-46.3) fL RDW Coeff of Tom (11.5-14.5) % Plt Count (130-400) K/uL MPV (7.4-10.4) fL Immature Gran % (Auto) % Neut % (Auto) % Lymph % (Auto) % [place] % (Auto) % Eos % (Auto) % Baso % (Auto) % Immature Gran # (Auto) (0.00-0.02) K/uL Neut # (Auto) (1.4-6.5) K/uL Lymph # (Auto) (1.2-3.4) K/uL [place] # (Auto) (0.11-0.59) K/uL Eos # (Auto) (0-0.5) K/uL Baso # (Auto) (0-0.2) K/uL PT (9.0-12.0) Seconds INR (0.9-1.1) APTT (21.0-31.0) Seconds PTT Ratio Sodium (136-145) mmol/L Potassium (3.5-5.1) mmol/L Chloride (98-107) mmol/L Carbon Dioxide (21-32) mmol/L Anion Gap (3-11) BUN (7-18) mg/dl Creatinine (0.6-1.4) mg/dl Est Cr Clr Drug Dosing ml/min Est GFR ( Amer) Est GFR (Non-Af Amer) BUN/Creatinine Ratio (10-20) Glucose (70-99) mg/dl Lactate 2.6 H* (0.4-2.0) mmol/L Calcium (8.5-10.1) mg/dl Magnesium (1.8-2.4) mg/dl Troponin I (0-0.045) ng/ml Procalcitonin (0-0.5) ng/ml
--- NOTE | 2018-10-27 11:41 | Surgery Progress Note ---
Date of Service doing better, no abdominal pain, no nausea, no vomiting, good control HR. October 27, 2018 Assessment & Plan (1) Atrial fibrillation with RVR: S/P laparoscopic cholecystectomy POD 1 post-op developed A-Fib, now good control HR 75, normal WBC, can start heparin from surgical point continue treat A-fib repeat all labs in am, business development assistant should be consult if pt's condition is getting worse, D/W hospitalist Will F/U 10/27/2018 doing better, continue treatment will F/U Subjective Developed A. fib RVR at approximately 4:30 PM, heart rate in 160/170 rapid irregular She denies of any chest pain, shortness of breath, does feel palpitation no dizzy spell some pain at substernal area/subxiphoid incision, no drainage, swelling noted Laparoscopic incision area appears to be healing well no nausea, tolerated clears Not passed any gas, no bowel movement yet Given 2.5 mg IV Lopressor, with minimum improvement of heart ferritin 140s, Blood pressure 119/58 patient is afebrile Stat EKG shows A. fib RVR heart rate 160, new diagnosis Ordered for normal saline to 250 mg IV bolus Patient started on IV Cardizem drip Order to transfer to PCU for cardiac monitoring cardiology consulted IV anticoagulation cannot be started, as patient is recent(within 24-hour) postop from laparoscopic cholecystectomy Physical Exam Constitutional: WD/WN, vitals as above Neck: trachea midline, no thyromegaly Respiratory: normal respiratory effort, lungs clear to auscultation Cardiovascular: RRR, no murmur, no edema Gastrointestinal (Abdomen): Percussion/Palpation: abdomen soft NT, ND all incisions intact, no redness, Neurologic: awake Psychiatric: Orientation: alert and oriented x 3 Results & Data Vital Signs (Past 12 Hours) Vital Signs Temp Pulse Pulse Resp BP BP Pulse Ox 10/27/18 11:27 36.8 C 61 19 96/64 L 90 10/27/18 09:52 60 101/63 10/27/18 07:49 36.6 C 74 15 94/48 L 91 10/27/18 03:02 36.7 C 62 20 113/69 93
--- NOTE | 2018-10-27 14:18 | Hospitalist Progress Note ---
Date of Service October 27, 2018 Assessment & Plan (1) Atrial fibrillation with RVR: Paroxysmal A. fib, Developed rapid A. fib RVR postop laparoscopic cholecystectomy for acute cholecystitis Patient follows with [facility] cardiology Dr. Schultz: Office visit on 01/11/2018: Shows history of sinus node dysfunction, status dual- chamber post permanent pacemaker placement Pacemaker interrogation in 2018 showed appropriate function with an of battery life, Status post laparoscopic cholecystectomy for acute cholecystitis 10/25/2018 Developed rapid A. fib RVR with heart rate 160-170 Postop day 1 10/26/2018 He was treated with IV Cardizem drip, transferred to PCU/p.o. Lopressor 25 mg p.o. twice daily Cardiology consulted, appreciate input Started with IV heparin weight-based protocol Patient denies of any anginal symptom Has mild elevation of troponin possibly secondary to rapid A. fib RVR/demand ischemia/type II non-ST elevated NE Echo shows no wall motion abnormality, Patient is continued with Lopressor 25 mg p.o. twice daily, showing adequate heart rate and rhythm control (2) Sepsis: met criteria for sepsis on admission: Secondary to acute cholecystitis Lactic acid improved with IV fluids, patient is continue with Zosyn, Surgery consulted, status post laparoscopic cholecystectomy Appreciate input from surgery, patient is recovering well. On IV Zosyn ID evaluation requested, appreciate input (3) Acute cholecystitis: Presented with right upper quadrant pain, acid with sepsis, elevated lactic acid, fever chills Ultrasound of gallbladder: 1. Ultrasound finding of acute cholecystitis. 2. Gallstones as well as pericholecystic fluids are present Appreciate input from surgery Status post laparoscopic cholecystectomy 10/25/2018 Developed rapid A. fib RVR stat labs shows mild elevation of lactic acid and procalcitonin, patient does not appear to be septic, Continue IV Zosyn, Repeat blood cultures negative ID consulted, appreciate input (4) Aspiration pneumonitis: Patient had severe right upper quadrant pain, nausea, Had self-induced vomiting: He inserted fingers back of the throat to induce vomiting as was having severe discomfort from abdominal bloating and pain Concern for aspiration pneumonitis: CT Chest/abdomen pelvis done in [facility] shows possible ground glass opacity in the lung Treated with empiric antibiotic with IV Zosyn Patient remains afebrile, no cough, hypoxia noted Patient does not have any nausea vomiting postoperatively, Order for clear liquid diet, with aspiration precaution Chest x-ray does not show any evidence of infiltrate, Record obtained from [facility] ER At present patient does not need any treatment for pneumonitis (5) 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 fib RVR on postoperative day 1 of cholecystectomy Patient was initially given IV Cardizem drip, discontinued and transition to p.o. Lopressor HR remains controlled with Po lopressor 25 mg BID appreciate Cardiology eval (6) Hypertension: Developed hypo-tension after IV Cardizem bolus BP improved after IV cardizem discontinued Continue on p.o. Lopressor 25 mg twice daily for A. fib RVR Monitor in PCU CODE STATUS: Full code DVT prophylaxis: IV heparin DISPOSITION : Expected to be discharged home when medically stable Update given to patient's Amisha Triplett for the change of status Subjective Converted normal with sinus rhythm, IV Cardizem discontinued, patient is continued with Lopressor 25 mill grams p.o. twice daily Seen at bedside, denies of any chest pain, no shortness of breath, no nausea, feels absolutely fine, no pain or discomfort on right upper quadrant Heart rate shows rate controlled 90 bpm on monitor Physical Exam Constitutional: WD/WN, vitals as above no acute distress Eyes: + anicteric sclerae ENMT: Mallampati Class: II Neck: normal visual inspection Respiratory: normal respiratory effort, lungs clear to auscultation Cardiovascular: RRR, no murmur, no edema Gastrointestinal (Abdomen): Inspection/Auscultation: + abdomen abnormal to inspection (Status post laparoscopic cholecystectomy, surgical incision site intact, no drainage, erythema, tenderness noted) and abdomen not distended Percussion/Palpation: abdomen soft Skin: no rashes, warm and dry Neurologic: PERRL, EOMI, accommodation nl, no face palsy, no dysarthria Psychiatric: Orientation: alert and oriented x 3 Results & Data Vital Signs (Past 12 Hours) Vital Signs Temp Pulse Pulse Resp BP BP Pulse Ox 10/27/18 11:27 36.8 C 61 19 96/64 L 90 10/27/18 09:52 60 101/63 10/27/18 07:49 36.6 C 74 15 94/48 L 91 10/27/18 03:02 36.7 C 62 20 113/69 93 (1) Sepsis Sepsis type: sepsis due to unspecified organism Qualified Code(s): A41.9 - Sepsis, unspecified organism (2) Hypertension Hypertension type: essential hypertension Qualified Code(s): I10 - Essential (primary) hypertension
[2018-10-27] MEDS: Heparin Adult LOW DOSE Wt-Based Dextrose 5% 25,000 units/500 mL IV SCH (20:49)
[2018-10-28] MEDS: PIPERACILLIN/TAZOBACTAM 3.375 GM in DEXTROSE 5% 100 ML IV SCH ×3 (05:48→21:00)
[2018-10-28 07:02] LABS: Partial Thromboplastin Ratio 2.1
[2018-10-28 07:05] LABS: Partial Thromboplastin Time 56.2 Seconds (21.0-31.0)
[2018-10-28 07:11] LABS: BUN Creatinine Ratio 10.3 (10-20); Calcium 8.4 mg/dl (8.5-10.1); Creatinine Clr Calc Pharmacy 43.5 ml/min; Est GFR (African American) 67.1; Est GFR (Non-African American) 57.9; Magnesium 1.9 mg/dl (1.8-2.4); Potassium 3.5 mmol/L (3.5-5.1)
[2018-10-28] MEDS: ESCITALOPRAM OXALATE 10 MG TAB PO SCH (08:16)
[2018-10-28] MEDS: METOPROLOL TARTRATE 25 MG TAB PO SCH (08:16)
[2018-10-28] MEDS: ALLOPURINOL 300 MG TAB PO SCH (08:17)
[2018-10-28] MEDS ORDERED: VANCOMYCIN HCL 1,250 MG in SODIUM CHLORIDE 0.9% 250 ML IV SCH (10:00)
--- NOTE | 2018-10-28 11:11 | Cardiology Progress Note ---
Date of Service October 28, 2018 Assessment & Plan (1) Paroxysmal atrial fibrillation with RVR: Patient is converted to sinus rhythm with oral metoprolol, IV diltiazem. We will continue oral metoprolol Patient's chads vas 2 score initially is low only elevated for age however elevated troponins noted demand based secondary to rhythm and brief atrial tachycardias last evening. Will require long-term anticoagulation with plans to switch to Eliquis prior to discharge Supplement potassium today and change metoprolol tartrate to metoprolol succinate (2) Hx of sinoatrial node dysfunction: Pacemaker functioning appropriately on telemetry Last interrogation July 2018 demonstrated good battery life 1-1/2 to 2 years duration expected. 47% atrial paced no ventricular paced (3) Acute cholecystitis: As per surgical intervention appears to be recovering (4) Elevated troponin: Echocardiogram demonstrates preserved LV systolic function, EKG no acute ischemic changes Subjective Patient seen and examined, chart telemetry reviewed. Notes mild incisional discomfort otherwise feels well. No bleeding issues, no tachypalpitations. No chest pains or discomfort no shortness of breath. Review of telemetry demonstrates 2 short runs of paroxysmal atrial fibrillation nonsustained and asymptomatic Review of Systems Review of Systems: As per HPI Physical Exam Constitutional: WD/WN, vitals as above Eyes: PERRL, conjunctivae normal, anicteric sclerae Neck: trachea midline, no thyromegaly Respiratory: Auscultation: + crackles (Left base which clear partially with cough) Cardiovascular: RRR, no murmur, no edema Heart Sounds: normal S1 and normal S2 Vessels: no JVD Extremities: no edema Gastrointestinal (Abdomen): Percussion/Palpation: + abdomen tender (Mild) and abdomen soft; no guarding Musculoskeletal: no cyanosis or clubbing, extremities motor strength 5/5 Neurologic: PERRL, EOMI, accommodation nl, no face palsy, no dysarthria Psychiatric: A+Ox3, euthymic affect Results & Data Vital Signs (Past 12 Hours) Vital Signs Temp Pulse Pulse Resp BP Pulse Ox 10/28/18 10:46 36.4 C L 59 L 20 121/65 95 10/28/18 07:06 37.0 C 68 22 118/57 L 94 10/28/18 03:48 37.0 C 60 16 104/66 94 10/27/18 23:52 37.1 C 60 16 110/61 96
[2018-10-28] MEDS ORDERED: POTASSIUM CHLORIDE 10 MEQ TABCR PO STA (11:33)
--- NOTE | 2018-10-28 12:18 | Surgery Progress Note ---
Date of Service doing fine, no abdominal pain, he tolerated diet, October 28, 2018 Assessment & Plan (1) Atrial fibrillation with RVR: S/P laparoscopic cholecystectomy POD 1 post-op developed A-Fib, now good control HR 75, normal WBC, can start heparin from surgical point continue treat A-fib repeat all labs in am, manager of supply chain should be consult if pt's condition is getting worse, D/W hospitalist Will F/U 10/27/2018 doing better, continue treatment will F/U 10/28/2018 12:18PM doing fine, continue treatment, will F/U Subjective Patient seen and examined, chart telemetry reviewed. Notes mild incisional discomfort otherwise feels well. No bleeding issues, no tachypalpitations. No chest pains or discomfort no shortness of breath. Review of telemetry demonstrates 2 short runs of paroxysmal atrial fibrillation nonsustained and asymptomatic Physical Exam Constitutional: WD/WN, vitals as above Neck: trachea midline, no thyromegaly Respiratory: normal respiratory effort, lungs clear to auscultation Cardiovascular: RRR, no murmur, no edema Gastrointestinal (Abdomen): Percussion/Palpation: abdomen soft NT, ND Neurologic: awake Psychiatric: Orientation: alert and oriented x 3 Results & Data Vital Signs (Past 12 Hours) Vital Signs Temp Pulse Pulse Resp BP Pulse Ox 10/28/18 10:46 36.4 C L 59 L 20 121/65 95 10/28/18 07:06 37.0 C 68 22 118/57 L 94 10/28/18 03:48 37.0 C 60 16 104/66 94
--- NOTE | 2018-10-28 18:15 | Hospitalist Progress Note ---
Date of Service October 28, 2018 Assessment & Plan (1) Atrial fibrillation with RVR: Paroxysmal A. fib, Developed rapid A. fib RVR postop laparoscopic cholecystectomy for acute cholecystitis Patient follows with [facility] cardiology Dr. Schultz: Office visit on 01/11/2018: Shows history of sinus node dysfunction, status dual- chamber post permanent pacemaker placement Pacemaker interrogation in 2018 showed appropriate function with an of battery life, Status post laparoscopic cholecystectomy for acute cholecystitis 10/25/2018 Developed rapid A. fib RVR with heart rate 160-170 Postop day #1 on 10/26/2018 He was treated with IV Cardizem drip, transferred to PCU/p.o. Lopressor 25 mg p.o. twice daily Cardiology consulted, appreciate input Started with IV heparin weight-based protocol Patient denies of any anginal symptom Has mild elevation of troponin possibly secondary to rapid A. fib RVR/demand ischemia/type II non-ST elevated SC Echo shows no wall motion abnormality, Patient is continued with Lopressor 25 mg p.o. twice daily, showing adequate heart rate and rhythm control cardioolgy Meant to start on oral anticoagulants tomorrow, plan for at least 3 months of anticoagulation (2) Sepsis: met criteria for sepsis on admission: Secondary to acute cholecystitis Lactic acid improved with IV fluids, patient is continue with Zosyn, Surgery consulted, status post laparoscopic cholecystectomy Appreciate input from surgery, patient is recovering well. was treated with IV Zosyn ID evaluation requested, appreciate input Antibiotic changed to p.o. Augmentin (3) Acute cholecystitis: Presented with right upper quadrant pain, acid with sepsis, elevated lactic acid, fever chills Ultrasound of gallbladder: 1. Ultrasound finding of acute cholecystitis. 2. Gallstones as well as pericholecystic fluids are present Appreciate input from surgery Status post laparoscopic cholecystectomy 10/25/2018 Developed rapid A. fib RVR stat labs shows mild elevation of lactic acid and procalcitonin, patient does not appear to be septic, Continue IV Zosyn, Repeat blood cultures negative ID consulted, appreciate input Antibiotic changed to p.o. Augmentin (4) Aspiration pneumonitis: Patient had severe right upper quadrant pain, nausea, Had self-induced vomiting: He inserted fingers back of the throat to induce vomiting as was having severe discomfort from abdominal bloating and pain Concern for aspiration pneumonitis: CT Chest/abdomen pelvis done in [facility] shows possible ground glass opacity in the lung Treated with empiric antibiotic with IV Zosyn Changed to p.o. Augmentin Patient remains afebrile, no cough, hypoxia noted Patient does not have any nausea vomiting postoperatively, Diet advance tolerating well Chest x-ray does not show any evidence of infiltrate, Record obtained from [facility] ER At present patient does not need any treatment for pneumonitis P.o. Augmentin ordered for treatment of acute cholecystitis status post cholecystectomy (5) 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 fib RVR on postoperative day 1 of cholecystectomy Patient was initially given IV Cardizem drip, discontinued and transition to p.o. Lopressor HR remains controlled with addition of Po lopressor 25 mg BID appreciate Cardiology eval Patient will be continued with beta-shayy, Plan to start on oral anticoagulation tomorrow (6) Hypertension: BP stable Continue on p.o. Lopressor 25 mg twice daily for A. fib RVR CODE STATUS: Full code DVT prophylaxis: IV heparin DISPOSITION : Possible discharge home tomorrow Subjective Feels fine, no nausea vomiting, no chest pain, . Notes mild incisional discomfort otherwise feels well. No bleeding issues, no tachypalpitations. No chest pains or discomfort no shortness of breath. Appreciate input from cardiology, treatments controlled on beta-shayy Heart rate remains stable Physical Exam Constitutional: WD/WN, vitals as above no acute distress Eyes: + anicteric sclerae ENMT: Mallampati Class: II Neck: normal visual inspection Respiratory: normal respiratory effort, lungs clear to auscultation normal respiratory effort Auscultation: + crackles (mild crackles left lung base) Cardiovascular: RRR, no murmur, no edema Rate/Rhythm: + tachycardic and + irregularly irregular Gastrointestinal (Abdomen): Inspection/Auscultation: + abdomen abnormal to inspection (Status post laparoscopic cholecystectomy, surgical incision site intact, no drainage, erythema, tenderness noted) and abdomen not distended Percussion/Palpation: abdomen soft Skin: no rashes, warm and dry Neurologic: PERRL, EOMI, accommodation nl, no face palsy, no dysarthria Psychiatric: Orientation: alert and oriented x 3 Results & Data Vital Signs (Past 12 Hours) Vital Signs Temp Pulse Pulse Resp BP Pulse Ox 10/28/18 15:56 36.4 C L 60 18 123/71 94 10/28/18 10:46 36.4 C L 59 L 20 121/65 95 10/28/18 07:06 37.0 C 68 22 118/57 L 94 (1) Sepsis Sepsis type: sepsis due to unspecified organism Qualified Code(s): A41.9 - Sepsis, unspecified organism (2) Hypertension Hypertension type: essential hypertension Qualified Code(s): I10 - Essential (primary) hypertension
[2018-10-28] MEDS: METOPROLOL SUCC 25MG EXT REL TAB PO SCH (20:24)
[2018-10-28] MEDS: OXYCODONE/ACETAMINOPHEN 5mg/325mg TAB PO PRN (20:26)
[2018-10-28] MEDS: Heparin Adult LOW DOSE Wt-Based Dextrose 5% 25,000 units/500 mL IV SCH (20:27)
[2018-10-29] MEDS ORDERED: APIXABAN 5 MG TABLET PO SCH
[2018-10-29] MEDS: PIPERACILLIN/TAZOBACTAM 3.375 GM in DEXTROSE 5% 100 ML IV SCH ×2 (05:36→13:58)
[2018-10-29 06:38] LABS: Partial Thromboplastin Time 54.2 Seconds (21.0-31.0)
[2018-10-29] MEDS: ALLOPURINOL 300 MG TAB PO SCH (07:59)
[2018-10-29] MEDS: ESCITALOPRAM OXALATE 10 MG TAB PO SCH (07:59)
[2018-10-29] MEDS: METOPROLOL SUCC 25MG EXT REL TAB PO SCH ×2 (07:59→19:07)
--- NOTE | 2018-10-29 11:04 | Cardiology Progress Note ---
Date of Service October 29, 2018 Assessment & Plan (1) Paroxysmal atrial fibrillation with RVR: Patient is converted to sinus rhythm with oral metoprolol, IV diltiazem. Likely incited by stress of surgery paroxysmal episodes post procedure transient elevation troponin Plan continue Toprol-XL as ordered Change anticoagulation to oral Eliquis. (2) Hx of sinoatrial node dysfunction: Pacemaker functioning appropriately on telemetry Pacemaker update demonstrates normal device function no prior atrial fibrillation. If patient remains in sinus rhythm on follow-up pacemaker checks may consider discontinuing anticoagulation Will need follow-up with cardiology/Dr. Schultz (3) Acute cholecystitis: As per surgical intervention appears to be recovering (4) Elevated troponin: Echocardiogram demonstrates preserved LV systolic function, EKG no acute ischemic changes Subjective The patient was seen and examined, chart medications telemetry reviewed. No further arrhythmias. Remains in sinus and intermittent pacing, atrial. No abdominal pain or discomfort no bleeding difficulties no dizziness or lightheadedness up in room no breathing issues. Appetite is improving moving bowels without difficulty Review of Systems Review of Systems: As per HPI and otherwise negative Physical Exam Constitutional: WD/WN, vitals as above Eyes: PERRL, conjunctivae normal, anicteric sclerae Neck: trachea midline, no thyromegaly Respiratory: Auscultation: + crackles (Left base which clear partially with cough) Cardiovascular: RRR, no murmur, no edema Heart Sounds: normal S1 and normal S2 Vessels: no JVD Extremities: no edema Gastrointestinal (Abdomen): Percussion/Palpation: + abdomen tender (Mild) and abdomen soft; no guarding Musculoskeletal: no cyanosis or clubbing, extremities motor strength 5/5 Neurologic: PERRL, EOMI, accommodation nl, no face palsy, no dysarthria Psychiatric: A+Ox3, euthymic affect Results & Data Vital Signs (Past 12 Hours) Vital Signs Temp Pulse Pulse Resp BP BP Pulse Ox 10/29/18 07:37 36.8 C 71 20 130/72 96 10/29/18 05:35 36.8 C 60 18 129/72 95 10/29/18 00:11 37.2 C 71 18 118/69 94 Laboratory Results Laboratory Results - last 24 hr 10/28/18 10/28/18 10/28/18 11:16 16:39 20:37 APTT PTT Ratio POC Glucose 110 H 174 H 158 H 10/29/18 05:55 APTT 54.2 H* PTT Ratio 2.0 POC Glucose
[2018-10-29] MEDS: APIXABAN 5 MG TABLET PO SCH ×2 (13:55→19:05)
--- NOTE | 2018-10-29 14:26 | Surgery Progress Note ---
Date of Service October 29, 2018 Assessment & Plan (1) Atrial fibrillation with RVR: POD 4 lap feli seen with Dr. Gonzalez now on Eliquis for A-fib ok for d/c from surgical standpoint Subjective no complaints, tolerating diet Physical Exam Gastrointestinal (Abdomen): Percussion/Palpation: abdomen soft Results & Data Vital Signs (Past 12 Hours) Vital Signs Temp Pulse Pulse Resp BP BP Pulse Ox 10/29/18 11:58 36.7 C 60 20 152/89 H 94 10/29/18 07:37 36.8 C 71 20 130/72 96 10/29/18 05:35 36.8 C 60 18 129/72 95
--- NOTE | 2018-10-30 12:22 | Discharge Summary ---
Date of Service October 29, 2018 Admission HPI Per Admitting Provider History obtained from patient, family, and records. Medical history significant for sinoatrial dysfunction status post PPM, prostate cancer status post radiation, gout, restless leg syndrome, mood disorder, past tobacco/alcohol abuse. Patient noted junky cough later noted to be dry symptoms the last 2 weeks without chest pain, shortness of breath, fever chills. Patient stated to see PCP next week. Last night after a salad dinner, patient experience achy midepigastric pain followed by nausea and emesis. Intensity of 10. Patient brought to [facility] ER. WBC noted to be 11, lactic acid was 2.1, LFTs and lipase were normal. Blood cultures obtained. CT chest showed bilateral bibasilar atelectatic pulmonary changes with associated groundglass densities. Cardiomegaly. No pulmonary embolism, sliding hiatal hernia. CT abdomen pelvis: Suspect developing acute cholecystitis. rectosigmoid junction thickening under distention versus mild colitis., No aortic dissection. Patient received Azithromycin, Unasyn at the ER. Patient requested transfer to [facility] for surgical evaluation. 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 fib Discharge Exam Constitutional WD/WN, vitals as above no acute distress Eyes + anicteric sclerae ENMT Mouth: + dentures Mallampati Class: II Neck normal visual inspection Respiratory normal respiratory effort, lungs clear to auscultation normal respiratory effort Auscultation: + crackles (mild crackles left lung base) Cardiovascular RRR, no murmur, no edema Rate/Rhythm: + tachycardic Gastrointestinal (Abdomen) Inspection/Auscultation: + abdomen abnormal to inspection (Status post laparoscopic cholecystectomy, surgical incision site intact, no drainage, erythema, tenderness noted) and abdomen not distended Percussion/Palpation: abdomen soft Skin no rashes, warm and dry Neurologic PERRL, EOMI, accommodation nl, no face palsy, no dysarthria Psychiatric Orientation: alert and oriented x 3 Discharge Data Allergies Allergy/AdvReac Type Severity Reaction Status Date / Time aspirin AdvReac Unknown Verified 03/28/18 08:07 Consultations 10/25/18 07:16 Consult General Surgery Routine 10/25/18 19:06 Consult Health Information Management Routine 10/26/18 16:40 Consult Cardiology Routine Procedures Performed Operation Date: 10/25/18 11:00 Actual Procedures p Laparoscopic Cholecystectomy - Naldo Gonzalez DO, FACS Ordered Studies 10/25/18 08:58 US gallbladder Urgent Hospital Course (1) Atrial fibrillation with RVR: Paroxysmal A. fib, Menstrual rate controlled with Lopressor 25 mg twice daily Charted on p.o. daily Eliquis 5 mg twice daily, IV heparin discontinued Stable to be discharged home today Follow-up with cardiology Dr. Schultz in next 2 to 3 weeks Patient presented with acute cholecystitis Developed rapid A. fib RVR postop laparoscopic cholecystectomy for acute cholecystitis Patient follows with [facility] cardiology Dr. Schultz: Office visit on 01/11/2018: Shows history of sinus node dysfunction, status dual- chamber post permanent pacemaker placement Pacemaker interrogation in 2018 showed appropriate function with an of battery life, Status post laparoscopic cholecystectomy for acute cholecystitis 10/25/2018 Developed rapid A. fib RVR with heart rate 160-170 Postop day #1 on 10/26/2018 He was treated with IV Cardizem drip, transferred to PCU/p.o. Lopressor 25 mg p.o. twice daily Cardiology consulted, appreciate input Started with IV heparin weight-based protocol Patient denies of any anginal symptom Has mild elevation of troponin possibly secondary to rapid A. fib RVR/demand ischemia/type II non-ST elevated [place] Echo shows no wall motion abnormality, Patient is continued with Lopressor 25 mg p.o. twice daily, showing adequate heart rate and rhythm control cardioolgy Meant to start on oral anticoagulants tomorrow, plan for at least 3 months of anticoagulation (2) Sepsis: met criteria for sepsis on admission: Secondary to acute cholecystitis Lactic acid improved with IV fluids, patient is continue with Zosyn, Surgery consulted, status post laparoscopic cholecystectomy Appreciate input from surgery, patient is recovering well. was treated with IV Zosyn ID evaluation requested, appreciate input Antibiotic changed to p.o. Augmentin To be discharged home with oral antibiotic (3) Acute cholecystitis: Presented with right upper quadrant pain, acid with sepsis, elevated lactic acid, fever chills Ultrasound of gallbladder: 1. Ultrasound finding of acute cholecystitis. 2. Gallstones as well as pericholecystic fluids are present Appreciate input from surgery Status post laparoscopic cholecystectomy 10/25/2018 Developed rapid A. fib RVR stat labs shows mild elevation of lactic acid and procalcitonin, patient does not appear to be septic, Continue IV Zosyn, Repeat blood cultures negative ID consulted, appreciate input Antibiotic changed to p.o. Augmentin (4) Aspiration pneumonitis: Patient had severe right upper quadrant pain, nausea, Had self-induced vomiting: He inserted fingers back of the throat to induce vomiting as was having severe discomfort from abdominal bloating and pain Concern for aspiration pneumonitis: CT Chest/abdomen pelvis done in [facility] shows possible ground glass opacity in the lung Treated with empiric antibiotic with IV Zosyn Changed to p.o. Augmentin Patient remains afebrile, no cough, hypoxia noted Patient does not have any nausea vomiting postoperatively, Diet advance tolerating well Chest x-ray does not show any evidence of infiltrate, Record obtained from [facility] ER At present patient does not need any treatment for pneumonitis P.o. Augmentin ordered for treatment of acute cholecystitis status post cholecystectomy (5) 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 fib RVR on postoperative day 1 of cholecystectomy Patient was initially given IV Cardizem drip, discontinued and transition to p.o. Lopressor HR remains controlled with addition of Po lopressor 25 mg BID appreciate Cardiology eval Patient will be discharged with p.o. Lopressor 25 mill grams twice daily, anticoagulation with p.o. Eliquis (6) Hypertension: BP stable Continue on p.o. Lopressor 25 mg twice daily for A. fib RVR CODE STATUS: Full code DVT prophylaxis: Eliquis DISPOSITION : Stable to be discharged home today Total Time Total Time Spent Total Time Spent (In Minutes): Approximate 45 minutes Total Time Includes: Examination of the Patient, Discharge Planning, Medication Reconciliation and Communication With Other Providers Discharge Plan Discharge Items Patient Disposition: Home - Self-Care Reason For Visit: SEPSIS Discharge Diagnosis: acute cholecystitis, laparoscopic cholecystectomy/PAROXYSMAL AFIB Discharge Goals: Decrease discomfort Activity: Per 'Additional Instructions' section Lifting: No more than 10 pounds Bathing: No limitations Driving/Machine Use Comment: when pain free Non-emergency contact: Surgeon Call non-emergency contact if: you have any medication questions, your pain is not controlled, you have a fever, your temperature is above 101.5 and your wound has increased redness Follow-up/Referrals: Naldo Gonzalez DO, FACS [Physician] - (Call to make an appt for approx 2 weeks) Dylan Schultz DO [Super[employer] Department] - Linda Gallardo D.O. [Primary Care Provider] - Diet: Low Fat Addtl Provider Instructions: You have glue on your incisions, it is ok to shower FOLLOW UP WITH CARDIOLOGY DR SCHULTZ IN 2-[address] Schultz office in AM to ask for coupon for Eliquis Prescriptions: New oxycodone-acetaminophen [Percocet] 5-325 mg tablet 1 - 2 tab PO Q4H PRN (Reason: pain) Qty: 15 RF: 0 amoxicillin-pot clavulanate [Augmentin] 875-125 mg tablet 1 tab PO BID Qty: 10 RF: 0 Eliquis 5 mg Tablet 5 mg PO BID 30 Days Qty: 60 RF: 0 metoprolol succinate 25 mg Tablet Extended Release 24 Hr 25 mg PO BID 30 Days Qty: 60 RF: 3 Continued allopurinol 300 mg Tablet 300 mg PO DAILY RF: 0 escitalopram oxalate [Lexapro] 10 mg Tablet 10 mg PO DAILY RF: 0 Stand-Alone Forms: [employer]/Other Patient Handouts: Diabetes Meal Planning Discharge Orders: Discharge Order (Routine); Ordered 10/29/18 Ordered By: Krista Malagon Admission Data Admit Date/Time: 10/25/18 05:13 Attending Provider: Krista Malagon Admit Provider: Juan Pablo Franco Primary Care Provider: Linda Gallardo Other Providers: Naldo Sawyer ; Felipe Cardozo ; Kamlesh Gao ; Vinny Jimenez ; Dylan Schultz ; Patrick Esparza ; Sonali Ramirez ; Laxmi Grant ; Naldo Gonzalez Service: Telemetry Other Interventions: Discharge Summary Assessment (RN) Last Done: 10/29/18 18:55 DC Date/Time DO NOT enter until pt leaves facility: 10/29/18 19:27
== END 2018-10-29 19:27 | disposition home or self-care (01) | DRG 853 ==
LOC: 2N 05:13 → 2E 10-26 16:38

== ENCOUNTER 2019-07-14 14:17 | Observation (INO) ==
[2019-07-14] MEDS ORDERED: DIPHTHERIA/TETANUS/PERTUSSIS 0.5 ML SYR/VIAL IM ONE (14:36)
[2019-07-14 14:45] LABS: Basophils # (auto) 0.03 K/uL (0-0.2); Basophils % (auto) 0.5 %; Eosinophils # (auto) 0.24 K/uL (0-0.5); Eosinophils % (auto) 3.8 %; Hematocrit (blood only) 44.1 % (42-52); Hemoglobin 14.8 g/dL (14.0-18.0); Immature Granulocytes # (auto) 0.01 K/uL (0.00-0.02); Immature Granulocytes % (auto) 0.2 %; Lymphocytes % (auto) 36.7 %; Mean Corpuscular Hgb Conc 33.6 g/dL (32-36); Mean Corpuscular Volume 95.2 fL (80-100); Mean Platelet Volume 10.7 fL (7.4-10.4); Monocytes # (auto) 0.46 K/uL (0.11-0.59); Monocytes % (auto) 7.3 %; Neutrophils # (auto) 3.22 K/uL (1.4-6.5); Neutrophils % (auto) 51.5 %; Platelet Count 117 K/uL (130-400); RDW Coefficient of Variation 14.3 % (11.5-14.5); Red Blood Count 4.63 M/uL (4.7-6.1); White Blood Count 6.26 K/uL (4.8-10.8)
[2019-07-14] MEDS ORDERED: SODIUM CHLORIDE 0.9% 1000ML 1,000 ML IV SCH (14:45)
[2019-07-14 14:53] LABS: INR 1.1 (0.9-1.1); Prothrombin Time 11.2 Seconds (9.0-12.0)
[2019-07-14 15:01] LABS: Alanine Aminotransferase 14 U/L (12-78); Albumin Level 3.8 gm/dl (3.4-5.0); Aspartate Aminotransferase 15 U/L (15-37); BUN Creatinine Ratio 16.5 (10-20); Blood Urea Nitrogen 22 mg/dl (7-18); Calcium 8.9 mg/dl (8.5-10.1); Carbon Dioxide 27 mmol/L (21-32); Chloride 109 mmol/L (98-107); Creatinine Clr Calc Pharmacy 37.1 ml/min; Est GFR (African American) 56.3; Est GFR (Non-African American) 48.6; Glucose 180 mg/dl (70-99); Potassium 3.9 mmol/L (3.5-5.1); Sodium 143 mmol/L (136-145)
--- NOTE | 2019-07-14 15:02 | XRay Report ---
XR chest 1V portable HISTORY: dizzy COMPARISON: Chest 10/25/2018. FINDINGS: The heart is top normal in size. Moderate hiatus hernia. No pleural effusions. No pneumotho rax. Right basilar linear density consistent with subsegmental atelectasis. Otherwise, lungs are jackie r. Left-sided dual-chamber pacemaker. IMPRESSION: No acute process. ACT 112: Negative or not required by law. Electronically signed by: Christian Newman M.D. 07/14/2019 3:00 PM
[2019-07-14 15:06] LABS: Albumin Globulin Ratio 1.4 (0.9-2); Alkaline Phosphatase 69 U/L (45-117); Bilirubin,Total 0.7 mg/dl (0.2-1); Globulin 2.8 gm/dl (2.5-4.0); Total Protein 6.6 gm/dl (6.4-8.2); Troponin I < 0.015 ng/ml (0-0.045)
--- NOTE | 2019-07-14 15:25 | CT Scan Report ---
HEAD CT NONCONTRAST CT DOSE: 537.48 mGy.cm HISTORY: dizzy TECHNIQUE: Multiaxial CT images of the head were performed without the use of intravenous contrast. A utomated exposure control was utilized for this study. A dose lowering technique was utilized adheri ng to the principles of ALARA. Comparison: None. Findings: The paranasal sinuses and mastoid air cells are clear. The calvarium and skull base are int act. There is no mass, hematoma, midline shift, acute infarct. White matter hypodensity is nonspecifi c but suggestive of microvascular ischemic change. The ventricles and sulci demonstrate mild age-rela dominic involutional changes. Impression: No acute intracranial abnormality. Atrophy and microvascular ischemic changes. ACT 112: Negative or not required by law. Electronically signed by: Christian Newman M.D. 07/14/2019 3:24 PM
--- NOTE | 2019-07-14 16:53 | History & Physical Report ---
Date of Service July 14, 2019 Assessment & Plan (1) Dizzy: Pt is 89 y/o M with PMH sinoatrial node dysfunction s/p pacemaker, HTN, paroxysmal atrial fibrillation, LATONIA, gout, depression presented to ER with complaint of dizziness episode today. Patient states he got up today around noon and approximately 30 minutes later he was standing making toast when he had sudden onset of dizziness described as spinning and felt like his eyes could not focus secondary to spinning and he fell against a counter. Denies LOC, CP, SOB, palpitations In ER vitals stable. random glucose: 180 No significant electrolyte abnormality. Negative troponin. EKG paced rhythm CT head: no acute changes DDX: vertigo, orthostatic hypotension, arrhythmia, hypoglycemia -Tele to monitor for arrhythmias -Orthostatic vital signs -Pacemaker interrogation -Fall precautions -CBC, BMP in am -If recurrent dizziness or worsening may need to consider further workup (2) Hyperglycemia: Random glucose: 180 -A1c in am (3) Paroxysmal atrial fibrillation with RVR: H/O PAF during hospitalization in 10/2018 for sepsis Current sinus rhythm -Unsure when stopped taking Eliquis or why stopped taking Eliquis (Pharmacy records last filled 12/2018) -Continue metoprolol -CHADSVASC: 3 -Consult cardiology, would appreciate further recommendations on anticoagulation (4) Hx of sinoatrial node dysfunction: S/P Pacemaker -Pacemaker interrogation (5) Depression: Stable -Continue Lexapro (6) Gout: -Continue allopurinol (7) LATNOIA on CPAP: -CPAP HS DVT Prophylaxis -Heparin SQ Full Code as per discussion with pt Follows with Dr Gallardo -ANDREA Irvin for routine care Pt was seen and care coordinated with Dr Peterson. See addendum History of Present Illness Chief Complaint: Dizziness Primary Care Provider: Linda Gallardo Pt is 89 y/o M with PMH sinoatrial node dysfunction s/p pacemaker, HTN, paroxysmal atrial fibrillation, LATONIA, gout, depression presented to ER with complaint of dizziness episode today. Patient states he got up today around noon and approximately 30 minutes later he was standing making toast when he had sudden onset of dizziness described as spinning and felt like his eyes could not focus secondary to spinning and he fell against a counter hitting his left hand on the counter causing skin tear. Patient denies falling to floor. Denies hitting head or LOC. Patient significant other reports the patient seemed confused for approximately 5 minutes after this episode. Patient then did eat toast and had a cup of tea and reported to ER. Patient denies any further dizziness episodes today. Reports did feel off balance last night. He does report a couple of weeks ago he had a similar dizzy episode after standing up off of toilet described as dizzy/spinning sensation reports this caused him to fall into the tub. He reports he did hit his head at that time and denies any loss of consciousness. Denies any other known falls. Patient with history of paroxysmal atrial fibrillation during hospitalization 10/2018 for sepsis secondary to acute cholecystitis and at that time was started on metoprolol and Eliquis. Patient states he stopped his Eliquis but is unsure why and is unsure how long he has not taken it. Denies fever/chills, diaphoresis, N/V/D/C, MERAZ, vision changes, neck pain, CP, SOB, orthopnea, palpitations, cough, sore throat, choking, otalgia, rhinorrhea, abdominal pain, paresthesias, weakness, extremity weakness, extremity edema, rashes, urinary symptoms. Hx Echo: 10/27/18: EF: 65-70%, moderate aortic sclerosis without stenosis Allergies Allergy/AdvReac Type Severity Reaction Status Date / Time aspirin AdvReac Unknown Verified 07/14/19 16:07 Home Medications Home Medications Medication Instructions Recorded Confirmed Type allopurinol 300 mg PO DAILY 03/14/18 07/14/19 History escitalopram oxalate [Lexapro] 10 mg PO DAILY 03/14/18 07/14/19 History Chlorella Support 5 tabs PO DAILY 07/14/19 07/14/19 History diclofenac sodium [Pennsaid] 1 pump TOPICAL BID 07/14/19 07/14/19 History metoprolol succinate [Toprol XL] 25 mg PO BID 07/14/19 07/14/19 History pramipexole 0.25 mg PO HS 07/14/19 07/14/19 History Past Med/Surg History Medical History Atrial fibrillation with RVR (Acute) Depression Gout Hypertension LATONIA on CPAP Pacemaker (Acute) Paroxysmal atrial fibrillation Prostate cancer (Acute) Sepsis 10/2018 secondary to acute cholecystitis Surgical History H/O thumb surgery (Acute) History of back surgery (Acute) History of cholecystectomy 10/2018 Family History Brother Cancer Coronary heart disease Sister Breast cancer Social History Preferred Language: Bengali Communication Ability: Effective Tile Sorter Required: No Beliefs That Will Affect Care: None Current Living Situation: Spouse Other Information That Helps Us Care for You: No Feels Safe at Home: Yes Safety Concerns: Feels Safe At This Time Smoking Status: Former smoker Hx Alcohol Use: No Hx Substance Use: No Review of Systems Review of Systems: All systems reviewed & are unremarkable except as noted in HPI & below Physical Exam Physical Exam: General: no distress, WDWN Head: normocephalic, atraumatic Eyes: PERRL, EOM's intact, conjunctiva non-injected, anicteric ENT: normal inspection external ears, nose, mucous membranes moist Neck: supple, trachea midline Lungs: clear, no respiratory distress, no wheezing/rhonchi/rales CV: RRR, no murmur, no pretibial edema Abd: normal BS, soft, non-tender Ext: no cyanosis, no calf tenderness Neuro: A&O x 3, No nystagmus, Facial sensation is intact and symmetric, The face is strong and symmetric, Hearing grossly intact, Soft palate elevates symmetrically, no dysarthria, Shoulder shrug intact, Tongue is midline, normal movement, Strength 5/5 throughout, normal affect Skin: warm, dry, left dorsal hand with 2 skin tear without active bleeding, no surrounding erythema Results & Data Vital Signs (Past 12 Hours) Vital Signs Temp Pulse Resp BP Pulse Ox 07/14/19 15:31 60 20 07/14/19 15:30 63 19 124/75 07/14/19 15:20 60 20 07/14/19 15:10 60 17 07/14/19 15:07 60 24 07/14/19 14:56 63 24 07/14/19 14:19 36.4 C L 80 18 140/80 95 Laboratory Results Short CBC 07/14/19 Range/Units 14:30 WBC 6.26 (4.8-10.8) K/uL Hgb 14.8 (14.0-18.0) g/dL Hct 44.1 (42-52) % Plt Count 117 L (130-400) K/uL BMP 07/14/19 14:30 Sodium 143 Potassium 3.9 Chloride 109 H Carbon Dioxide 27 BUN 22 H Creatinine 1.31 Glucose 180 H Calcium 8.9 Cardiac Enzymes 07/14/19 Range/Units 14:30 Troponin I < 0.015 (0-0.045) ng/ml Liver Function 07/14/19 Range/Units 14:30 Total Bilirubin 0.7 (0.2-1) mg/dl AST 15 (15-37) U/L ALT 14 (12-78) U/L Alkaline Phosphatase 69 (45-117) U/L Albumin 3.8 (3.4-5.0) gm/dl Diagnostic Findings CT HEAD WITHOUT CONTRAST: Impression: No acute intracranial abnormality. Atrophy and microvascular ischemic changes. CXR: IMPRESSION: No acute process. ECG Rate (beats per minute): 65 Findings: + nonspecific-ST abn and + paced rhythm Supervising Physician Co-Signing Physician Notes Care coordinated with KIRSTEN Manning. Agree with above note. Patient seen and examined. Please refer to her notes for full details. Vital signs reviewed. Physical exam: General exam: Alert and oriented. Not in acute distress. CVS: S1 and S2 heard, regular rate and rhythm, no murmurs. RS: Clear to auscultation, no wheezing or crackles. ABD: Soft, bowel sounds present, nontender, no distention. TEMPERATURE CONTROL INSPECTOR: Nonfocal. EXT: No edema, no erythema. Labs: Reviewed. Assessment and plan: 89M with hx of PAF sinoatrial dysfunction s/p Pacemaker p resents with epsiode of dizziness and was confused for about 5 minutes. Dizziness lasted for about 20mninutes. Dizziness currently stable ct head unremarkable will check ortho statics pace maker interrogation tele monitoring carduiology consult in am PAF s/p pace maker not on eliquis currently await cardio input. Other diagnosis and plan of care as per Jazlyn Fairbanks PA-C. Damon willis MD.
[2019-07-14] MEDS ORDERED: ACETAMINOPHEN 325 MG TAB PO PRN (18:25)
--- NOTE | 2019-07-14 19:14 | Emergency Department Note ---
Entered by Kevon Potts acting as a scribe for Harry Mccabe DO History of Present Illness General Chief complaint: Dizziness Stated complaint: DIZZY, LOST BALANCE, TORE SKIN ON TOP OF LT HAND Source: patient History of Present Illness Onset (ago): hour(s) (this morning) Pain Consistency: + now resolved Maximum Pain Intensity: 0 Quality: + other (near syncopal episode) Exacerbated By: + other (standing up) Associated symptoms: + other (dizziness, confusion); no chest pain, no headache s, no shortness of breath and no weakness (weakness or numbness to his arms and legs) The patient is an 89 y/o male who presents to the ED w/ CC of a now resolved near syncopal episode that occurred this morning. The patient states he was late getting up today and decided to have tea and toast before going outside to shovel snow. He reports he was holding his toast and then suddenly he dropped it because things started to spin. The patient notes he fell into the counter and did not hip his head. He states he was dizzy and confused after he fell into the counter. The patient reports the dizziness lasted about a minute or two, and his notes his confusion lasted for about 5 minutes, and he was able to recognize the people around him. He notes he fell three weeks ago as he was standing up off the toilet. The patient states he fell into the tub because he was dizzy and broke the faucet off the wall. He reports he has had intermittent dizziness spells for the past 5-6 months where he gets dizzy. The patient notes tetanus is not up to date. His states he was on Eliquis but she is not sure if he still is. She denies slurred speech and gargling words. The patient denies a headache, chest pain, shortness of breath, and weakness or numbness to his arms and legs. Home Medications Home Medications Medication Instructions Recorded Confirmed Type allopurinol 300 mg PO DAILY 03/14/18 07/14/19 History escitalopram oxalate [Lexapro] 10 mg PO DAILY 03/14/18 07/14/19 History Chlorella Support 5 tabs PO DAILY 07/14/19 07/14/19 History diclofenac sodium [Pennsaid] 1 pump TOPICAL BID 07/14/19 07/14/19 History metoprolol succinate [Toprol XL] 25 mg PO BID 07/14/19 07/14/19 History pramipexole 0.25 mg PO HS 07/14/19 07/14/19 History Allergies Allergy/AdvReac Type Severity Reaction Status Date / Time aspirin AdvReac Unknown Verified 07/14/19 16:07 Past Med/Surg History Medical History Atrial fibrillation with RVR (Acute) Depression Gout Hypertension LATONIA on CPAP Pacemaker (Acute) Paroxysmal atrial fibrillation Prostate cancer (Acute) Sepsis 10/2018 secondary to acute cholecystitis Surgical History H/O thumb surgery (Acute) History of back surgery (Acute) History of cholecystectomy 10/2018 Family History Brother Cancer Coronary heart disease Sister Breast cancer Social History Preferred Language: Urdu Communication Ability: Effective Detective Captain Required: No Beliefs That Will Affect Care: None Current Living Situation: Spouse Other Information That Helps Us Care for You: No Feels Safe at Home: Yes Safety Concerns: Feels Safe At This Time Smoking Status: Former smoker Hx Alcohol Use: No Hx Substance Use: No Review of Systems See HPI for pertinent positives & negatives. and A total of 10 systems reviewed and were otherwise negative Physical Exam Vital Signs Vital Signs - 24 hr 07/14/19 14:19 07/14/19 14:56 07/14/19 15:07 Temperature 36.4 C L Temperature Source Oral Pulse Rate 80 63 60 Respiratory Rate 18 24 24 Respiratory Effort / Characteristics Non-Labored Spontaneous Respiratory Depth Normal Respiratory Pattern Regular Blood Pressure 140/80 Blood Pressure Mean 100 Blood Pressure Position Sitting Pulse Oximetry 95 Oxygen Delivery Method Room Air Sepsis Recent Fever Within 48 Hours No Sepsis New/Unexplained Change in Mental Status No Sepsis Action Taken by Nursing No Action Required 07/14/19 15:10 07/14/19 15:20 07/14/19 15:30 Temperature Temperature Source Pulse Rate 60 60 63 Respiratory Rate 17 20 19 Respiratory Effort / Characteristics Respiratory Depth Respiratory Pattern Blood Pressure 124/75 Blood Pressure Mean 83 Blood Pressure Position Pulse Oximetry Oxygen Delivery Method Sepsis Recent Fever Within 48 Hours Sepsis New/Unexplained Change in Mental Status Sepsis Action Taken by Nursing 07/14/19 15:31 Temperature Temperature Source Pulse Rate 60 Respiratory Rate 20 Respiratory Effort / Characteristics Respiratory Depth Respiratory Pattern Blood Pressure Blood Pressure Mean Blood Pressure Position Pulse Oximetry Oxygen Delivery Method Sepsis Recent Fever Within 48 Hours Sepsis New/Unexplained Change in Mental Status Sepsis Action Taken by Nursing GENERAL: Sitting up in bed, wearing hospital gown, no distress, non-toxic EYE EXAM: normal conjunctiva, PERRL and EOM's intact OROPHARYNX: no exudate, no erythema, lips, buccal mucosa, and tongue normal and mucous membranes are moist NECK: supple, no nuchal rigidity, no adenopathy, non-tender LUNGS: Clear to auscultation. Normal chest wall mechanics HEART: no murmurs, S1 normal and S2 normal ABDOMEN: abdomen soft, non-tender, normo-active bowel sounds, no masses, no rebound or guarding. BACK: Back is symmetrical on inspection and there is no deformity, no midline tenderness, no CVA tenderness. SKIN: Two skin tears to the left dorsal hand measuring 1cm and 4cm without significant distraction as they are well approximated. UPPER EXTREMITIES: upper extremities are grossly normal. LOWER EXTREMITIES: No pitting edema. NEURO EXAM: Normal sensorium, cranial nerves II-XII intact, normal speech, no weakness of arms, no weakness of legs. No drift. Finger to nose intact. Gross sensation intact. Course Course ED COURSE: Vital signs were reviewed and showed hypertension The patients medical record was reviewed The above diagnostic studies were performed and reviewed. ED treatments and interventions as stated above. 1428: The patient was evaluated in room B12B. A complete history and physical examination was performed. 1554: The patient's pacemaker is unable to be interrogated. 1559: Upon reevaluation, the patient is the patient is resting. I discussed my findings with the patient and he understands and agrees with the treatment plan. 1601: I discussed the patients case with Jazlyn Fairbanks PA-C, [facility] Hospitalist, attending Dr. Peterson. The patient will be evaluated for further management. Based on the patients age, coexisting illnesses, exam and lab findings the decision to treat as an inpatient was made. The patient remained stable while under my care. The patient will be evaluated for further management. Administered Medications Discontinued Medications Diphtheria/Pertussis/Tetanus Vacc (Adacel) 0.5 ml IM .ONCE ONE Stop: 07/14/19 14:37 Last Admin: 07/14/19 15:25 Dose: 0.5 ml Documented by: [id number] Sodium Chloride (Nss 1000ml) 1,000 mls @ 999 mls/hr IV .Q1H1M ALICE Stop: 07/14/19 15:45 Last Infusion: 07/14/19 16:00 Dose: 0 mls/hr Documented by: [id number] Admin: 07/14/19 14:42 Dose: 999 mls/hr Documented by: [id number] Medical Decision Making Differential Diagnosis Differential diagnosis includes etiologies such as benign positional vertigo, dehydration, hypovolemia, anemia, tumor, infection, hypoglycemia, electrolyte abnormalities, cardiac sources, intracerebral event, toxicologic, neurologic, as well as others were entertained. Medical Records Attestation: I reviewed the patient's medical records. Home Medications Current Medication List: was personally reviewed by me Laboratory Data Attestation: I reviewed the patient's lab results. Result diagrams: 07/14/19 14:30 07/14/19 14:30 Lab Results 07/14/19 07/14/19 07/14/19 Range/Units 14:30 14:30 14:30 WBC 6.26 (4.8-10.8) K/uL RBC 4.63 L (4.7-6.1) M/uL Hgb 14.8 (14.0-18.0) g/dL Hct 44.1 (42-52) % MCV 95.2 (80-100) fL MCH 32.0 (25-34) pg MCHC 33.6 (32-36) g/dL RDW Std Deviation 50.0 H (36.4-46.3) fL RDW Coeff of Tom 14.3 (11.5-14.5) % Plt Count 117 L (130-400) K/uL MPV 10.7 H (7.4-10.4) fL Immature Gran % (Auto) 0.2 % Neut % (Auto) 51.5 % Lymph % (Auto) 36.7 % Bleckley % (Auto) 7.3 % Eos % (Auto) 3.8 % Baso % (Auto) 0.5 % Immature Gran # (Auto) 0.01 (0.00-0.02) K/uL Neut # (Auto) 3.22 (1.4-6.5) K/uL Lymph # (Auto) 2.30 (1.2-3.4) K/uL Bleckley # (Auto) 0.46 (0.11-0.59) K/uL Eos # (Auto) 0.24 (0-0.5) K/uL Baso # (Auto) 0.03 (0-0.2) K/uL PT 11.2 (9.0-12.0) Seconds INR 1.1 (0.9-1.1) Sodium 143 (136-145) mmol/L Potassium 3.9 (3.5-5.1) mmol/L Chloride 109 H (98-107) mmol/L Carbon Dioxide 27 (21-32) mmol/L Anion Gap 8.0 (3-11) BUN 22 H (7-18) mg/dl Creatinine 1.31 (0.6-1.4) mg/dl Est Cr Clr Drug Dosing 37.1 ml/min Est GFR ( Amer) 56.3 Est GFR (Non-Af Amer) 48.6 BUN/Creatinine Ratio 16.5 (10-20) Glucose 180 H (70-99) mg/dl Calcium 8.9 (8.5-10.1) mg/dl Total Bilirubin 0.7 (0.2-1) mg/dl AST 15 (15-37) U/L ALT 14 (12-78) U/L Alkaline Phosphatase 69 (45-117) U/L Troponin I < 0.015 (0-0.045) ng/ml Total Protein 6.6 (6.4-8.2) gm/dl Albumin 3.8 (3.4-5.0) gm/dl Globulin 2.8 (2.5-4.0) gm/dl Albumin/Globulin Ratio 1.4 (0.9-2) Imaging Data Radiologist's Impression: Radiology results as stated below per my review and the radiologist's interpretation: XR chest 1V portable HISTORY: dizzy COMPARISON: Chest 10/25/2018. FINDINGS: The heart is top normal in size. Moderate hiatus hernia. No pleural effusions. No pneumothorax. Right basilar linear density consistent with subsegmental atelectasis. Otherwise, lungs are clear. Left-sided dual-chamber pacemaker. IMPRESSION: No acute process. ACT 112: Negative or not required by law. Electronically signed by: Christian Newman M.D. 07/14/2019 3:[address]AST CT DOSE: 537.48 mGy.cm HISTORY: dizzy TECHNIQUE: Multiaxial CT images of the head were performed without the use of intravenous contrast. Automated exposure control was utilized for this study. A dose lowering technique was utilized adhering to the principles of ALARA. Comparison: None. Findings: The paranasal sinuses and mastoid air cells are clear. The calvarium and skull base are intact. There is no mass, hematoma, midline shift, acute infarct. White matter hypodensity is nonspecific but suggestive of microvascular ischemic change. The ventricles and sulci demonstrate mild age-related involutional changes. Impression: No acute intracranial abnormality. Atrophy and microvascular ischemic changes. ACT 112: Negative or not required by law. Electronically signed by: Christian Newman M.D. 07/14/2019 3:24 PM ECG Data Attestation: I personally reviewed and interpreted this ECG as follows: Indication: + syncope (near) Rate (beats per minute): 65 Rhythm: + other (atrial paced) ECG Chama: + Normal ECG Findings: + PVCs and + Other (ST wave flattening in the inferior leads) Blood Pressure Blood Pressure Findings: Elevated blood pressure Blood Pressure Disposition: further management by hospitalist SERVANDO Narrative Patient is an 89-year-old male with a past medical history of A. fib who was previously on Eliquis and is no longer but he is unsure why presents the ER for an episode of dizziness associated with confusion. This lasted for about 5 minutes. Patient notes that he became extremely dizzy and fell but did not hit his head. was there and notes that he was extremely confused at the time which lasted for about 5 minutes. IV was established blood work was obtained and showed no significant leukocytosis or anemia. INR was unremarkable. BMP with a slightly elevated BUN. Bilirubin LFTs and troponin were negative. Chest x-ray and CT head were negative. EKG was paced. Attempted to interrogate his pacemaker but was unsuccessful and consequently called the rep. Uncertain of the true cause of his symptoms but do question if this was neurologic. Discussed with the hospitalist for observation updated the patient and at bedside. Skin tears are well approximated. No benefit of sutures at this time. Will wrap and antibacterial ointment needs to be placed. Impression & Plan Dizziness, AMS (altered mental status), Skin tear Discharge Plan Visit Data *Final* Discharge Date/Time: 07/14/19 17:48 Chief Complaint: Dizziness Stated Complaint: DIZZY, LOST BALANCE, TORE SKIN ON TOP OF LT HAND ED Provider: Harry Mccabe Discharge Problem: Dizziness, AMS (altered mental status), Skin tear Patient Disposition: Admitted As Inpatient Discharge Instructions Interventions: ED Discharge Assessment Last Done: 07/14/19 17:48 Discharge Problem: AMS (altered mental status) Qualifiers: Altered mental status type: unspecified Qualified Code(s): R41.82 - Altered mental status, unspecified The scribe's documentation has been prepared under my direction and personally reviewed by me in its entirety. I confirm that the note above accurately reflects all work, treatment, procedures, and medical decision making performed by me.
[2019-07-14] MEDS: PRAMIPEXOLE DIHYDROCHLO 0.25 MG TAB PO SCH (19:59)
[2019-07-14] MEDS: METOPROLOL SUCC 25MG EXT REL TAB PO SCH (19:59)
[2019-07-14] MEDS: HEPARIN SOD 5,000 UNIT/0.5 ML VIAL SQ SCH (20:00)
--- NOTE | 2019-07-14 22:31 | Electrocardiogram Report ---
Test Reason : Blood Pressure : / mmHG Vent. Rate : 065 BPM Atrial Rate : 065 BPM P-R Int : 196 ms QRS Dur : 080 ms QT Int : 414 ms P-R-T Axes : 047 030 -25 degrees QTc Int : 430 ms Atrial-paced rhythm with occasional Premature ventricular complexes Nonspecific ST and T wave abnormality Abnormal ECG When compared with ECG of 27-OCT-2018 15:23, Premature ventricular complexes are now Present Confirmed by Cedric Ortiz ([id number]) on 07/14/2019 10:31:45 PM Referred By: REFERRED SELF Confirmed By:Cedric Ortiz
[2019-07-15 06:05] LABS: Hematocrit (blood only) 40.6 % (42-52); Hemoglobin 13.5 g/dL (14.0-18.0); Mean Corpuscular Hemoglobin 31.3 pg (25-34); Mean Corpuscular Hgb Conc 33.3 g/dL (32-36); Mean Corpuscular Volume 94.2 fL (80-100); Mean Platelet Volume 11.4 fL (7.4-10.4); Platelet Count 106 K/uL (130-400); RDW Coefficient of Variation 14.2 % (11.5-14.5); RDW Standard Deviation 48.8 fL (36.4-46.3); Red Blood Count 4.31 M/uL (4.7-6.1); White Blood Count 5.63 K/uL (4.8-10.8)
[2019-07-15 06:34] LABS: BUN Creatinine Ratio 17.4 (10-20); Calcium 8.8 mg/dl (8.5-10.1); Creatinine Clr Calc Pharmacy 41.9 ml/min; Est GFR (African American) 65.3; Est GFR (Non-African American) 56.3; Potassium 4.3 mmol/L (3.5-5.1)
[2019-07-15 06:44] LABS: Thyroid Stimulating Hormone 2.48 uIu/ml (0.300-4.500)
[2019-07-15 06:59] LABS: Estimated Average Glucose 143 mg/dl; Hemoglobin A1C 6.6 % (4.5-5.6)
[2019-07-15] MEDS ORDERED: allopurinoL 300 MG TAB PO SCH (09:00)
[2019-07-15] MEDS ORDERED: ESCITALOPRAM OXALATE 10 MG TAB PO SCH (09:00)
[2019-07-15] MEDS: METOPROLOL SUCC 25MG EXT REL TAB PO SCH ×2 (09:28→20:53)
[2019-07-15] MEDS: HEPARIN SOD 5,000 UNIT/0.5 ML VIAL SQ SCH (09:29)
--- NOTE | 2019-07-15 15:11 | Cardiology Consultation ---
Date of Consultation July 15, 2019 Assessment & Plan (1) Dizziness: (2) Skin tear: (3) Paroxysmal atrial fibrillation: (4) Pacemaker: This is an elderly gentleman who has had episodic dizziness and an unsteady gait for several years. He does have a permanent pacemaker that is functioning appropriately. Blood pressure was orthostatic on presentation but seems to have stabilized. If he remains stable on the telemetry then I do not believe any additional cardiac testing is indicated and the patient can be discharged to outpatient follow-up. History of Present Illness Attending Physician: Ashley Cortes MD History of Present Illness This is an 89-year-old male patient who has a permanent pacemaker and paroxysmal atrial fibrillation. He has had chronic dizziness and lightheadedness with chest is been episodic for several years. 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 States he did not want to hurt anyone. He was in his usual state of health. He was standing at the counter making some toast when he had an episode which resulted in unsteadiness and him falling back against the counter causing an abrasion on his hand. He quickly recovered but was brought to the emergency department by his family. He has no complaints today. His pacemaker was interrogated and it is functioning appropriately. No evidence of any significant arrhythmias. Allergies Allergy/AdvReac Type Severity Reaction Status Date / Time aspirin AdvReac Unknown Verified 07/14/19 16:07 Home Medications Home Medications Medication Instructions Recorded Confirmed Type allopurinol 300 mg PO DAILY 03/14/18 07/14/19 History escitalopram oxalate [Lexapro] 10 mg PO DAILY 03/14/18 07/14/19 History Chlorella Support 5 tabs PO DAILY 07/14/19 07/14/19 History diclofenac sodium [Pennsaid] 1 pump TOPICAL BID 07/14/19 07/14/19 History metoprolol succinate [Toprol XL] 25 mg PO BID 07/14/19 07/14/19 History pramipexole 0.25 mg PO HS 07/14/19 07/14/19 History Patient History Medical History Atrial fibrillation with RVR (Acute) Depression Gout Hypertension LATONIA on CPAP Pacemaker (Acute) Paroxysmal atrial fibrillation Prostate cancer (Acute) Sepsis 10/2018 secondary to acute cholecystitis Surgical History H/O thumb surgery (Acute) History of back surgery (Acute) History of cholecystectomy 10/2018 Family History Brother Cancer Coronary heart disease Sister Breast cancer Social History Preferred Language: Argentine Communication Ability: Effective Collar Baster Required: No Beliefs That Will Affect Care: None Current Living Situation: Spouse Other Information That Helps Us Care for You: No Feels Safe at Home: Yes Safety Concerns: Feels Safe At This Time Smoking Status: Former smoker Hx Alcohol Use: No Hx Substance Use: No Review of Systems Review of Systems: All systems reviewed & are unremarkable except as noted in HPI & below Nothing additional to add. Physical Exam Physical Exam: General: no acute distress and stated age Head: normocephalic, no masses, lesions, tenderness or abnormalities Eyes: conjunctiva are pink and non-injected, sclera clear Neck: supple, no adenopathy, no bruits, normal jugular venous pulse, no hepatojugular reflux Chest: normal shape and normal respiratory effort Lungs: clear to auscultation and percussion Cardiac Exam: - regular rate & rhythm, no murmurs gallops or rubs - normal S1, normal S2 Pulses: 2(+) throughout Abdomen: abdomen soft, non-tender, no abnormal masses and no hepatosplenomegaly Musculoskeletal: no gait disturbance, no joint inflammation, no deforming arthritis Extremities: no edema and no cyanosis Neuro: grossly normal exam Results & Data Vital Signs (Past 12 Hours) Vital Signs Temp Pulse Pulse Resp BP Pulse Ox 07/15/19 11:00 36.4 C L 57 L 18 128/74 91 07/15/19 09:20 60 07/15/19 07:00 36.7 C 56 L 18 118/72 95 07/15/19 04:00 36.5 C 55 L 19 135/82 94 Laboratory Results Laboratory Results - last 24 hr 07/15/19 07/15/19 07/15/19 05:32 05:32 05:32 WBC 5.63 RBC 4.31 L Hgb 13.5 L Hct 40.6 L MCV 94.2 MCH 31.3 MCHC 33.3 RDW Std Deviation 48.8 H RDW Coeff of Tom 14.2 Plt Count 106 L MPV 11.4 H Sodium 141 Potassium 4.3 Chloride 111 H Carbon Dioxide 26 Anion Gap 4.0 BUN 20 H Creatinine 1.16 Est Cr Clr Drug Dosing 41.9 Est GFR ( Amer) 65.3 Est GFR (Non-Af Amer) 56.3 BUN/Creatinine Ratio 17.4 Glucose 116 H Estimat Average Glucose 143 Hemoglobin A1c 6.6 H Calcium 8.8 TSH 2.480 Medications Administered Current Inpatient Medications Acetaminophen (Tylenol) 650 mg PO Q4H PRN PRN Reason: Pain or Fever Stop: 08/13/19 18:24 Allopurinol (Zyloprim) 300 mg PO DAILY ALICE Stop: 08/14/19 08:59 Last Admin: 07/15/19 09:28 Dose: 300 mg Documented by: Escitalopram Oxalate (Lexapro Tab) 10 mg PO DAILY ALICE Stop: 08/14/19 08:59 Last Admin: 07/15/19 09:28 Dose: 10 mg Documented by: Heparin Sodium (Porcine) (Heparin Sodium (Porcine)) 5,000 units SQ Q12 ALICE Stop: 08/13/19 20:59 Last Admin: 07/15/19 09:29 Dose: 5,000 units Documented by: Metoprolol Succinate (Toprol Xl) 25 mg PO BID ALICE Stop: 08/13/19 20:59 Last Admin: 07/15/19 09:28 Dose: Not Given Documented by: Pramipexole Dihydrochloride (Mirapex) 0.25 mg PO HS ALICE Stop: 08/13/19 20:59 Last Admin: 07/14/19 19:59 Dose: 0.25 mg Documented by:
--- NOTE | 2019-07-15 17:12 | Hospitalist Progress Note ---
Date of Service July 15, 2019 Assessment & Plan (1) Dizzy: Fall Pt is 89 y/o M with PMH sinoatrial node dysfunction s/p pacemaker, HTN, paroxysmal atrial fibrillation, LATONIA, gout, depression presented to ER with complaint of dizziness episode today. Patient states he got up today around noon and approximately 30 minutes later he was standing making toast when he had sudden onset of dizziness described as spinning and felt like his eyes could not focus secondary to spinning and he fell against a counter. Denies LOC, CP, SOB, palpitations CT head done in the ER showed no acute intracranial abnormality No arrhythmia showed on tele monitor Pacemaker interrogation done and function properly No further cardiac testing as per cardiology Advised to get up slowly from a sitting or lying position; also not to turn to quick Use walker to ambulate Clinically improves (2) Hyperglycemia: Hba1c 6.6 Continue monitor BS (3) Paroxysmal atrial fibrillation with RVR: H/O PAF during hospitalization in 10/2018 for sepsis Current sinus rhythm with Rate control Continue metoprolol Case discussed with cardiology and recommended not to resume eliquis due to fall from episode of dizziness (4) Hx of sinoatrial node dysfunction: S/P Pacemaker Pacemaker interrogation done and function properly (5) Depression: Stable Continue Lexapro (6) Gout: Continue allopurinol (7) LATONIA on CPAP: -CPAP HS DVT Prophylaxis Heparin SQ Full Code Disposition discharge home today Subjective Pt was seen and examined Lying in bed with no distress Pt said that he feels fine He said that the dizziness was resolved since admitting Denies any chest pain, palpitation, dizziness and SOB Physical Exam Physical Exam: General- No acute distress Head- atraumatic Eyes- PERRL, EOMI, ENT- oropharynx clear Neck- supple, no JVD Lungs- clear to auscultation Heart- regular rhythm; no murmur Abdomen- normal bowel sounds, soft, nontender Extremities- no calf tenderness Neuro- alert, oriented x 3; PERRL, EOMI; no facial palsy; no dysarthria Skin- warm & dry Results & Data ([facility]) Vital Signs (Past 12 Hours) Vital Signs Temp Pulse Pulse Resp BP Pulse Ox 07/15/19 15:37 60 07/15/19 15:00 36.8 C 63 20 162/77 H 94 07/15/19 11:00 36.4 C L 57 L 18 128/74 91 07/15/19 09:20 60 07/15/19 07:00 36.7 C 56 L 18 118/72 95
[2019-07-15] MEDS: PRAMIPEXOLE DIHYDROCHLO 0.25 MG TAB PO SCH (20:53)
--- NOTE | 2019-07-18 10:08 | Discharge Summary ---
Date of Service July 15, 2019 Admission HPI Per Admitting Provider Pt is 89 y/o M with PMH sinoatrial node dysfunction s/p pacemaker, HTN, paroxysmal atrial fibrillation, LATONIA, gout, depression presented to ER with complaint of dizziness episode today. Patient states he got up today around noon and approximately 30 minutes later he was standing making toast when he had sudden onset of dizziness described as spinning and felt like his eyes could not focus secondary to spinning and he fell against a counter hitting his left hand on the counter causing skin tear. Patient denies falling to floor. Denies hitting head or LOC. Patient significant other reports the patient seemed c onfused for approximately 5 minutes after this episode. Patient then did eat toast and had a cup of tea and reported to ER. Patient denies any further dizziness episodes today. Reports did feel off balance last night. He does report a couple of weeks ago he had a similar dizzy episode after standing up off of toilet described as dizzy/spinning sensation reports this caused him to fall into the tub. He reports he did hit his head at that time and denies any loss of consciousness. Denies any other known falls. Patient with history of paroxysmal atrial fibrillation during hospitalization 10/2018 for sepsis secondary to acute cholecystitis and at that time was started on metoprolol and Eliquis. Patient states he stopped his Eliquis but is unsure why and is unsure how long he has not taken it. Denies fever/chills, diaphoresis, N/V/D/C, MERAZ, vision changes, neck pain, CP, SOB, orthopnea, palpitations, cough, sore throat, choking, otalgia, rhinorrhea, abdominal pain, paresthesias, weakness, extremity weakness, extremity edema, rashes, urinary symptoms. Hx Echo: 10/27/18: EF: 65-70%, moderate aortic sclerosis without stenosis Admission Exam Per Admitting Provider General: no distress, WDWN Head: normocephalic, atraumatic Eyes: PERRL, EOM's intact, conjunctiva non-injected, anicteric ENT: normal inspection external ears, nose, mucous membranes moist Neck: supple, trachea midline Lungs: clear, no respiratory distress, no wheezing/rhonchi/rales CV: RRR, no murmur, no pretibial edema Abd: normal BS, soft, non-tender Ext: no cyanosis, no calf tenderness Neuro: A&O x 3, No nystagmus, Facial sensation is intact and symmetric, The face is strong and symmetric, Hearing grossly intact, Soft palate elevates symmetrically, no dysarthria, Shoulder shrug intact, Tongue is midline, normal movement, Strength 5/5 throughout, normal affect Skin: warm, dry, left dorsal hand with 2 skin tear without active bleeding, no surrounding erythema Principal Diagnosis Dizziness Fall Hyperglycemia Paroxysmal atrial fibrillation with RVR Hx of sinoatrial node dysfunction S/P Pacemaker Depression Gout LATONIA on CPAP Discharge Exam General- No acute distress Head- atraumatic Eyes- PERRL, EOMI, ENT- oropharynx clear Neck- supple, no JVD Lungs- clear to auscultation Heart- regular rhythm; no murmur Abdomen- normal bowel sounds, soft, nontender Extremities- no calf tenderness Neuro- alert, oriented x 3; PERRL, EOMI; no facial palsy; no dysarthria Skin- warm & dry Discharge Data Allergies Allergy/AdvReac Type Severity Reaction Status Date / Time aspirin AdvReac Unknown Verified 07/14/19 16:07 Consultations 07/14/19 15:59 ED Decision to Admit Stat 07/14/19 18:25 Consult Case Management - Discharge Planning Routine 07/15/19 08:00 Consult Cardiology Routine Ordered Studies 07/14/19 14:36 CT head/brain wo con Stat XR chest 1V portable HISTORY: dizzy COMPARISON: Chest 10/25/2018. FINDINGS: The heart is top normal in size. Moderate hiatus hernia. No pleural effusions. No pneumothorax. Right basilar linear density consistent with subsegmental atelectasis. Otherwise, lungs are clear. Left-sided dual-chamber pacemaker. IMPRESSION: No acute process. ACT 112: Negative or not required by law. Electronically signed by: Christian Newman M.D. 07/14/2019 3:00 PM Dictated: 07/14/19 1457 Transcribed: 07/14/[address] DOSE: 537.48 mGy.cm HISTORY: dizzy TECHNIQUE: Multiaxial CT images of the head were performed without the use of intravenous contrast. Automated exposure control was utilized for this study. A dose lowering technique was utilized adhering to the principles of ALARA. Comparison: None. Findings: The paranasal sinuses and mastoid air cells are clear. The calvarium and skull base are intact. There is no mass, hematoma, midline shift, acute inf arct. White matter hypodensity is nonspecific but suggestive of microvascular ischemic change. The ventricles and sulci demonstrate mild age-related involutional changes. Impression: No acute intracranial abnormality. Atrophy and microvascular ischemic changes. ACT 112: Negative or not required by law. Electronically signed by: Christian Newman M.D. 07/14/2019 3:24 PM Dictated: 07/14/19 1520 Transcribed: 07/14/19 1520 Hospital Course (1) Dizzy: Fall Pt is 89 y/o M with PMH sinoatrial node dysfunction s/p pacemaker, HTN, paroxysmal atrial fibrillation, LATONIA, gout, depression presented to ER with complaint of dizziness episode today. Patient states he got up today around noon and approximately 30 minutes later he was standing making toast when he had sudden onset of dizziness described as spinning and felt like his eyes could not focus secondary to spinning and he fell against a counter. Denies LOC, CP, SOB, palpitations CT head done in the ER showed no acute intracranial abnormality No arrhythmia showed on tele monitor Pacemaker interrogation done and function properly No further cardiac testing as per cardiology Advised to get up slowly from a sitting or lying position; also not to turn to quick Use walker to ambulate Clinically improves (2) Hyperglycemia: Hba1c 6.6 Continue monitor BS (3) Paroxysmal atrial fibrillation with RVR: H/O PAF during hospitalization in 10/2018 for sepsis Current sinus rhythm with Rate control Continue metoprolol Case discussed with cardiology and recommended not to resume eliquis due to fall from episode of dizziness (4) Hx of sinoatrial node dysfunction: S/P Pacemaker Pacemaker interrogation done and function properly (5) Depression: Stable Continue Lexapro (6) Gout: Continue allopurinol (7) LATONIA on CPAP: -CPAP HS DVT Prophylaxis Heparin SQ Full Code Disposition discharge home today Total Time Total Time Spent Total Time Spent (In Minutes): 35 minutes Total Time Includes: Examination of the Patient, Discharge Planning, Medication Reconciliation, Communication With Other Providers and Other Discharge Plan Discharge Items Patient Disposition: Home - Self-Care Reason For Visit: DIZZINESS Discharge Diagnosis: Dizziness Fall Hyperglycemia Paroxysmal atrial fibrillation with RVR Hx of sinoatrial node dysfunction S/P Pacemaker Depression Gout LATONIA on CPAP Activity: Resume your previous activity Non-emergency contact: Primary Care Provider and Trouble Locater Call non-emergency contact if: you have any medication questions Follow-up/Referrals: Linda Gallardo D.O. [Primary Care Provider] - Diet: Heart Healthy Addtl Attending Provider Instructions: Follow up with your primary care provider within 1 week (please call to schedule for the follow up appointment) Follow up with your cardiology (please call to schedule for the follow up appointment) Fall precaution Use your walker to ambulate Advised to get up slowly from a sitting or lying position; also not to turn your head to quick Pending Studies at Discharge: No Stand-Alone Forms: My [facility] [employer], Smoking Cessation Medications and DC Order Prescriptions: Continued allopurinol 300 mg Tablet 300 mg PO DAILY RF: 0 escitalopram oxalate [Lexapro] 10 mg Tablet 10 mg PO DAILY RF: 0 pramipexole 0.25 mg tablet 0.25 mg PO HS RF: 0 metoprolol succinate [Toprol XL] 25 mg tablet extended release 24 hr 25 mg PO BID RF: 0 Pennsaid 20 mg/gram /actuation(2 %) solution in metered-dose pump 1 pump TOPICAL BID RF: 0 Chlorella Support 5 tabs PO DAILY RF: 0 Discharge Orders: Discharge Order (Routine); Ordered 07/15/19 Ordered By: Ashley Melo/Other Patient Handouts: A1C Admission Data Admit Date/Time: 07/14/19 16:37 Attending Provider: Ashley Cortes Admit Provider: Damon Peterson Primary Care Provider: Linda Gallardo Other Providers: Damon Peterson ; Dylan Schultz Other Interventions: Discharge Summary Assessment (RN) Last Done: 07/15/19 17:40 DC Date/Time DO NOT enter until pt leaves facility: 07/15/19 21:30
== END 2019-07-15 21:30 | disposition home or self-care (01) ==
LOC: 2W 14:17 → ED 14:17 → SUATTDRO 16:37 → 2W 17:48

== ENCOUNTER 2021-05-09 13:43 | Inpatient (IN) ==
[2021-05-09] MEDS ORDERED: SODIUM CHLORIDE 0.9% 1000ML 500 ML IV ONE (14:06)
[2021-05-09] MEDS ORDERED: ALBUT/IPRATROP 3MG/0.5MG NEB 3 ML VIAL NEB STA (14:06)
[2021-05-09] MEDS ORDERED: dexAMETHasone**PF** 10 MG/ML VIAL IV ONE (14:19)
[2021-05-09 14:24] LABS: Basophils # (auto) 0.01 K/uL (0-0.2); Basophils % (auto) 0.1 %; Hematocrit (blood only) 45.4 % (42-52); Hemoglobin 15.3 g/dL (14.0-18.0); Immature Granulocytes # (auto) 0.03 K/uL (0.00-0.02); Immature Granulocytes % (auto) 0.4 %; Lymphocytes # (auto) 3.39 K/uL (1.2-3.4); Lymphocytes % (auto) 49.3 %; Mean Corpuscular Hemoglobin 31.7 pg (25-34); Mean Corpuscular Hgb Conc 33.7 g/dL (32-36); Mean Platelet Volume 11.5 fL (7.4-10.4); Monocytes # (auto) 0.53 K/uL (0.11-0.59); Monocytes % (auto) 7.7 %; Neutrophils # (auto) 2.91 K/uL (1.4-6.5); Neutrophils % (auto) 42.5 %; Platelet Count 100 K/uL (130-400); RDW Coefficient of Variation 14.2 % (11.5-14.5); RDW Standard Deviation 48.8 fL (36.4-46.3); Red Blood Count 4.83 M/uL (4.7-6.1); White Blood Count 6.87 K/uL (4.8-10.8)
--- NOTE | 2021-05-09 14:24 | Emergency Department Note ---
Impression & Plan SOB (shortness of breath), Pneumonia, COVID-19, Weakness, Acute dehydration ED Provider Note NAME: CARLINE OLIVA AGE: 89 SEX: M : 1930 ARRIVES VIA: Ambulance INFORMANT: [Patient][ems, nursing] ED PROVIDER(S): [Norm Gill MD] CHIEF COMPLAINT: Illness HISTORY OF PRESENT ILLNESS: The patient is an 89-year-old male who is not vaccinated against COVID-19. His is currently hospitalized with Covid pneumonia. The patient has been doing poorly for at least a week. He has no energy, he has been coughing, he feels a bit achy. There has been some shortness of breath. He is not eating or drinking well. He denies any chest pain, he denies vomiting or diarrhea. His taste and smell are intact. The patient denies any obvious fever. As the patient was just laying around on his couch and not functioning well, the ambulance was called. The patient denies any underlying lung disease. He is currently living alone as his is in the hospital. REVIEW OF SYSTEMS: See HPI for pertinent positives and negatives. A total of ten systems were reviewed and were otherwise negative. PMHx/PSHx: See Below SOCIAL HISTORY: See Below. PHYSICAL EXAM: GENERAL: Patient is in no acute distress. Seems quite frail. HEENT: No acute trauma, normocephalic atraumatic, mucous membranes dry, no nasal congestion, no scleral icterus. NECK: No stridor, no adenopathy, no meningismus, trachea is midline. LUNGS: He has crackles at both lower lung bases. There is an increased respiratory rate. No wheezing. Dry cough noted. HEART: Without murmurs gallops or rubs, regular rate and rhythm. Heart tones are distant. ABDOMEN: Soft, nontender, bowel sounds positive, no hernias, no peritonitis. EXTREMITIES: No cyanosis or edema, full range of motion of all the joints without pain or difficulty, no signs for acute trauma. NEUROLOGIC: Oriented x 3, no acute motor or sensory deficits, no focal weakness. SKIN: No rash, no jaundice, no diaphoresis. DIFFERENTIAL DIAGNOSIS: Reactive airway disease, pneumonia, pneumothorax, COPD, CHF, dehydration, COVID- 19, influenza, infection, cardiac ischemia, pulmonary embolism, bronchitis, musculoskeletal, gastrointestinal, as well as other pathologies. EMERGENCY DEPARTMENT COURSE/PROCEDURES: ECG: Indication was weakness and shortness of breath. The ECG shows a sinus rhythm with PACs. The rate is 82. There is some nonspecific ST change. No ST elevation. There are some inverted T waves in the inferior leads. QTC is 427. Compared an ECG from 14 July 2019, atrial pacing is no longer present. Continuous Cardiac Monitoring: An order was placed for continuous cardiac monitoring. The monitor shows a rate of 75 with sinus rhythm with PACs. Critical Care Note: I have personally spent 38 minutes of critical care time in the direct management of this patient. This includes bedside care, interpr etation of diagnostic studies, and testing, discussion with consultants, patient, and family members, and other required patient management activities. This 38 minutes is in excess of all separately billable procedures. MEDICAL DECISION MAKING: There is no leukocytosis or concerning anemia. There is a somewhat low platelet count at 100. No coagulopathy. Creatinine is somewhat elevated at 1.54, likely consistent with some dehydration. Lactic acid level was not elevated making severe sepsis less likely. There was no worrisome liver enzyme elevation. ECG shows a sinus rhythm, no ST elevation. Cardiac enzyme testing x1 is not consistent with acute cardiac injury. Influenza testing was negative. Covid testing returned positive. Chest x-ray does show pulmonary infiltrates bilaterally consistent with a viral pneumonia process. The patient was given a 500 cc saline bolus. He was given a DuoNeb and IV Decadron. The patient is weak, tired, visibly short of breath. He has COVID-19 and COVID- 19 pneumonia. He is dehydrated with some mild acute renal insufficiency. I do think a hospital stay is warranted. He is not safe for discharge home. 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 The on-call hospitalist was consulted. 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 Beliefs That Will Affect Care: None Current Living Situation: Spouse Feels Safe at Home: Yes Assistive Devices: None Allergies Allergies Allergy/AdvReac Type Severity Reaction Status Date / Time aspirin AdvReac Unknown Verified 12/14/20 13:00 Home Meds Home Medications Medication Instructions Recorded Confirmed allopurinol 300 mg tablet 300 mg PO DAILY 03/14/18 05/09/21 metformin 500 mg tablet,extended 500 mg PO DAILY 05/09/21 05/09/21 release 24 hr metoprolol succinate 25 mg 25 mg PO DAILY 05/09/21 05/09/21 tablet,extended release 24 hr (Toprol XL) Results & Data (ED) Vital Signs Vital Signs - 24 hr 05/09/21 13:51 05/09/21 13:55 05/09/21 14:00 Temperature 36.6 C Temperature Source Oral Pulse Rate 78 73 81 Pulse Rate [Right Finger] Pulse Rate from SpO2 Sensor 74 Respiratory Rate 18 34 H 29 H Respiratory Effort / Characteristics Non-Labored Respiratory Depth Normal Blood Pressure 110/70 114/77 Blood Pressure Mean 83 89 Pulse Oximetry 94 91 Oxygen Delivery Method Nasal Cannula Oxygen Flow Rate 2 Sepsis Recent Fever Within 48 Hours No Sepsis New/Unexplained Change in Mental Status No Sepsis Action Taken by Nursing No Action Required 05/09/21 14:10 05/09/21 14:17 05/09/21 14:20 Temperature Temperature Source Pulse Rate 77 79 Pulse Rate [Right Finger] Pulse Rate from SpO2 Sensor 77 78 Respiratory Rate 29 H 29 H Respiratory Effort / Characteristics Non-Labored Respiratory Depth Blood Pressure Blood Pressure Mean Pulse Oximetry 93 93 91 Oxygen Delivery Method Room Air Oxygen Flow Rate Sepsis Recent Fever Within 48 Hours Sepsis New/Unexplained Change in Mental Status Sepsis Action Taken by Nursing 05/09/21 14:30 05/09/21 14:40 05/09/21 14:50 Temperature Temperature Source Pulse Rate 79 76 75 Pulse Rate [Right Finger] Pulse Rate from SpO2 Sensor 74 76 72 Respiratory Rate 23 33 H 32 H Respiratory Effort / Characteristics Respiratory Depth Blood Pressure Blood Pressure Mean Pulse Oximetry 94 92 91 Oxygen Delivery Method Oxygen Flow Rate Sepsis Recent Fever Within 48 Hours Sepsis New/Unexplained Change in Mental Status Sepsis Action Taken by Nursing 05/09/21 14:53 05/09/21 15:00 05/09/21 15:10 Temperature Temperature Source Pulse Rate 73 81 Pulse Rate [Right Finger] 75 Pulse Rate from SpO2 Sensor 75 60 Respiratory Rate 18 31 H 30 H Respiratory Effort / Characteristics Non-Labored Spontaneous Respiratory Depth Blood Pressure 116/74 Blood Pressure Mean 88 Pulse Oximetry 92 95 93 Oxygen Delivery Method Room Air Oxygen Flow Rate Sepsis Recent Fever Within 48 Hours Sepsis New/Unexplained Change in Mental Status Sepsis Action Taken by Nursing 05/09/21 15:20 05/09/21 15:30 05/09/21 15:40 Temperature Temperature Source Pulse Rate 68 77 75 Pulse Rate [Right Finger] Pulse Rate from SpO2 Sensor 70 71 75 Respiratory Rate 31 H 32 H 31 H Respiratory Effort / Characteristics Respiratory Depth Blood Pressure 109/60 Blood Pressure Mean 76 Pulse Oximetry 95 94 93 Oxygen Delivery Method Oxygen Flow Rate Sepsis Recent Fever Within 48 Hours Sepsis New/Unexplained Change in Mental Status Sepsis Action Taken by Nursing 05/09/21 15:50 05/09/21 16:00 05/09/21 16:10 Temperature Temperature Source Pulse Rate 81 76 79 Pulse Rate [Right Finger] Pulse Rate from SpO2 Sensor 74 75 78 Respiratory Rate 19 32 H 36 H Respiratory Effort / Characteristics Respiratory Depth Blood Pressure 112/70 Blood Pressure Mean 84 Pulse Oximetry 93 92 93 Oxygen Delivery Method Oxygen Flow Rate Sepsis Recent Fever Within 48 Hours Sepsis New/Unexplained Change in Mental Status Sepsis Action Taken by Nursing 05/09/21 16:20 05/09/21 16:30 05/09/21 16:40 Temperature Temperature Source Pulse Rate 78 78 74 Pulse Rate [Right Finger] Pulse Rate from SpO2 Sensor 79 75 68 Respiratory Rate 31 H 31 H 35 H Respiratory Effort / Characteristics Respiratory Depth Blood Pressure 107/72 Blood Pressure Mean 83 Pulse Oximetry 92 92 93 Oxygen Delivery Method Oxygen Flow Rate Sepsis Recent Fever Within 48 Hours Sepsis New/Unexplained Change in Mental Status Sepsis Action Taken by Nursing 05/09/21 16:50 05/09/21 17:00 05/09/21 17:10 Temperature Temperature Source Pulse Rate 71 67 68 Pulse Rate [Right Finger] Pulse Rate from SpO2 Sensor 72 69 69 Respiratory Rate 35 H 31 H 25 H Respiratory Effort / Characteristics Respiratory Depth Blood Pressure 95/65 L Blood Pressure Mean 75 Pulse Oximetry 92 92 93 Oxygen Delivery Method Oxygen Flow Rate Sepsis Recent Fever Within 48 Hours Sepsis New/Unexplained Change in Mental Status Sepsis Action Taken by Nursing 05/09/21 17:20 Temperature Temperature Source Pulse Rate 72 Pulse Rate [Right Finger] Pulse Rate from SpO2 Sensor 72 Respiratory Rate 24 Respiratory Effort / Characteristics Respiratory Depth Blood Pressure Blood Pressure Mean Pulse Oximetry 92 Oxygen Delivery Method Oxygen Flow Rate Sepsis Recent Fever Within 48 Hours Sepsis New/Unexplained Change in Mental Status Sepsis Action Taken by Correction Medications Current Medication List: was personally reviewed by me Laboratory Data Attestation: I reviewed the patient's lab results. Result diagrams: 05/09/21 14:05 05/09/21 14:05 Lab Results 05/09/21 05/09/21 05/09/21 Range/Units 14:05 14:05 14:05 WBC 6.87 (4.8-10.8) K/uL RBC 4.83 (4.7-6.1) M/uL Hgb 15.3 (14.0-18.0) g/dL Hct 45.4 (42-52) % MCV 94.0 (80-100) fL MCH 31.7 (25-34) pg MCHC 33.7 (32-36) g/dL RDW Std Deviation 48.8 H (36.4-46.3) fL RDW Coeff of Tom 14.2 (11.5-14.5) % Plt Count 100 L (130-400) K/uL MPV 11.5 H (7.4-10.4) fL Immature Gran % (Auto) 0.4 % Neut % (Auto) 42.5 % Lymph % (Auto) 49.3 % [place] % (Auto) 7.7 % Eos % (Auto) 0.0 % Baso % (Auto) 0.1 % Neut # (Auto) 2.91 (1.4-6.5) K/uL Lymph # (Auto) 3.39 (1.2-3.4) K/uL [place] # (Auto) 0.53 (0.11-0.59) K/uL Eos # (Auto) 0.00 (0-0.5) K/uL Baso # (Auto) 0.01 (0-0.2) K/uL Immature Gran # (Auto) 0.03 H (0.00-0.02) K/uL PT 10.5 (9.0-12.0) Seconds INR 1.0 (0.9-1.1) APTT 33.6 H (21.0-31.0) Seconds PTT Ratio 1.3 Sodium 139 (136-145) mmol/L Potassium 4.1 (3.5-5.1) mmol/L Chloride 103 (98-107) mmol/L Carbon Dioxide 22 (21-32) mmol/L Anion Gap 14.0 H (3-11) BUN 42 H (7-18) mg/dl Creatinine 1.54 H (0.6-1.4) mg/dl Est Cr Clr Drug Dosing 30.1 ml/min Est GFR ( Amer) 45.7 ml/min Est GFR (Non-Af Amer) 39.4 ml/min BUN/Creatinine Ratio 26.9 H (10-20) Glucose 132 H (70-99) mg/dl Lactate (0.4-2.0) mmol/L Calcium 9.0 (8.5-10.1) mg/dl Magnesium 2.2 (1.8-2.4) mg/dl Total Bilirubin 0.8 (0.2-1) mg/dl AST 47 H (15-37) U/L ALT 29 (12-78) U/L Alkaline Phosphatase 46 (45-117) U/L Troponin I 0.024 (0-0.045) ng/ml Total Protein 7.0 (6.4-8.2) gm/dl Albumin 3.1 L (3.4-5.0) gm/dl Globulin 3.9 (2.5-4.0) gm/dl Albumin/Globulin Ratio 0.8 L (0.9-2) Specimen Hemolysis SARS-CoV-2 (PCR) (Negative) Influ A Molecular Assay (Negative) Influ B Molecular Assay (Negative) 05/09/21 05/09/21 05/09/21 Range/Units 14:08 14:32 Unknown WBC (4.8-10.8) K/uL RBC (4.7-6.1) M/uL Hgb (14.0-18.0) g/dL Hct (42-52) % MCV (80-100) fL MCH (25-34) pg MCHC (32-36) g/dL RDW Std Deviation (36.4-46.3) fL RDW Coeff of Tom (11.5-14.5) % Plt Count (130-400) K/uL MPV (7.4-10.4) fL Immature Gran % (Auto) % Neut % (Auto) % Lymph % (Auto) % [place] % (Auto) % Eos % (Auto) % Baso % (Auto) % Neut # (Auto) (1.4-6.5) K/uL Lymph # (Auto) (1.2-3.4) K/uL [place] # (Auto) (0.11-0.59) K/uL Eos # (Auto) (0-0.5) K/uL Baso # (Auto) (0-0.2) K/uL Immature Gran # (Auto) (0.00-0.02) K/uL PT (9.0-12.0) Seconds INR (0.9-1.1) APTT (21.0-31.0) Seconds PTT Ratio Sodium (136-145) mmol/L Potassium (3.5-5.1) mmol/L Chloride (98-107) mmol/L Carbon Dioxide (21-32) mmol/L Anion Gap (3-11) BUN (7-18) mg/dl Creatinine (0.6-1.4) mg/dl Est Cr Clr Drug Dosing ml/min Est GFR ( Amer) ml/min Est GFR (Non-Af Amer) ml/min BUN/Creatinine Ratio (10-20) Glucose (70-99) mg/dl Lactate 1.3 (0.4-2.0) mmol/L Calcium (8.5-10.1) mg/dl Magnesium (1.8-2.4) mg/dl Total Bilirubin (0.2-1) mg/dl AST (15-37) U/L ALT (12-78) U/L Alkaline Phosphatase (45-117) U/L Troponin I (0-0.045) ng/ml Total Protein (6.4-8.2) gm/dl Albumin (3.4-5.0) gm/dl Globulin (2.5-4.0) gm/dl Albumin/Globulin Ratio (0.9-2) Specimen Hemolysis SARS-CoV-2 (PCR) POSITIVE A* (Negative) Influ A Molecular Assay Negative (Negative) Influ B Molecular Assay Negative (Negative) Administered Medications Discontinued Medications Albuterol (Albut/Ipratrop 3mg/0.5mg Neb 3 Ml Vial) 3 ml NEB NOW STA Stop: 05/09/21 14:07 Last Admin: 05/09/21 14:52 Dose: 3 ml Documented by: [id number] Dexamethasone Sodium Phosphate (DexamethasonePf 10 Mg/Ml Vial) 6 mg IV NOW ONE Stop: 05/09/21 14:20 Last Admin: 05/09/21 14:51 Dose: 6 mg Documented by: [id number] Sodium Chloride (Nss 1000ml) 500 mls @ 999 mls/hr IV .Q31M ONE Stop: 05/09/21 14:36 Last Infusion: 05/09/21 16:04 Dose: 0 mls/hr Documented by: [id number] Admin: 05/09/21 14:51 Dose: 999 mls/hr Documented by: [id number] Imaging Data Radiologist's Impression: Chest X-Ray 05/09/21 13:54 XR chest 1V portable CLINICAL HISTORY: SOB. COMPARISON STUDY: 07/15/2019 TECHNIQUE: 1 view of the chest FINDINGS: Single frontal view of the chest demonstrates the cardiomediastinal silhouette to be within normal limits. Permanent cardiac pacer is in place. Patchy interstitial and alveolar opacities are present bilaterally. The findings are most characteristic of a viral type pneumonitis. Covid 19 pneumonia should be excluded. There is no evidence for pleural effusion. There is no evidence for vascular congestion. There is no acute osseous pathology. IMPRESSION: Patchy interstitial and alveolar opacities bilaterally characteristic of a viral type pneumonitis and probable early Covid 19 pneumonia. ACT 112: Negative or not required by law. Electronically signed by: Efraín Barron M.D. 05/09/2021 2:39 PM Discharge Plan Visit Data Chief Complaint: Illness Stated Complaint: ILLNESS, ED Provider: Norm Gill Discharge Problem: SOB (shortness of breath), Pneumonia, COVID-19, Weakness, Acute dehydration Patient Disposition: Admitted As Inpatient Condition: Fair Forms Stand Alone Forms: My [facility] Prescriptions Prescriptions: No Action allopurinol 300 mg Tablet 300 mg PO DAILY RF: 0 metformin 500 mg tablet extended release 24 hr 500 mg PO DAILY RF: 0 metoprolol succinate [Toprol XL] 25 mg Tablet Extended Release 24 Hr 25 mg PO DAILY RF: 0 Referrals Referrals: Linda Gallardo D.O. [Primary Care Provider] -
[2021-05-09 14:35] LABS: Partial Thromboplastin Ratio 1.3; Partial Thromboplastin Time 33.6 Seconds (21.0-31.0); Prothrombin Time 10.5 Seconds (9.0-12.0)
--- NOTE | 2021-05-09 14:40 | XRay Report ---
XR chest 1V portable CLINICAL HISTORY: SOB. COMPARISON STUDY: 07/15/2019 TECHNIQUE: 1 view of the chest FINDINGS: Single frontal view of the chest demonstrates the cardiomediastinal silhouette to be within normal li mits. Permanent cardiac pacer is in place. Patchy interstitial and alveolar opacities are present trish aterally. The findings are most characteristic of a viral type pneumonitis. Covid 19 pneumonia should be excluded. There is no evidence for pleural effusion. There is no evidence for vascular congestion . There is no acute osseous pathology. IMPRESSION: Patchy interstitial and alveolar opacities bilaterally characteristic of a viral type pne umonitis and probable early Covid 19 pneumonia. ACT 112: Negative or not required by law. Electronically signed by: Efraín Barron M.D. 05/09/2021 2:39 PM
[2021-05-09 14:52] LABS: Albumin Level 3.1 gm/dl (3.4-5.0); BUN Creatinine Ratio 26.9 (10-20); Creatinine Clr Calc Pharmacy 30.1 ml/min; Est GFR (African American) 45.7 ml/min; Est GFR (Non-African American) 39.4 ml/min; Magnesium 2.2 mg/dl (1.8-2.4); Potassium 4.1 mmol/L (3.5-5.1)
[2021-05-09 15:00] LABS: Albumin Globulin Ratio 0.8 (0.9-2); Bilirubin,Total 0.8 mg/dl (0.2-1); Globulin 3.9 gm/dl (2.5-4.0); Troponin I 0.024 ng/ml (0-0.045)
[2021-05-09 15:32] LABS: Influenza A virus by PCR Negative (Negative); Influenza B virus by PCR Negative (Negative)
--- NOTE | 2021-05-09 15:36 | History & Physical Report ---
Date of Service May 09, 2021 Assessment & Plan (1) Pneumonia due to COVID-19 virus: Plan: This is an 89yo M with a PMH of paroxysmal A fib, HTN, DM II, LATONIA on CPAP, history of sinoatrial node dysfunction s/p pacemaker who presents with viral symptoms over the past few days and was found to have Covid pneumonia. Feeling poorly for past few days, recently admitted in [facility] with covid. Is not vaccinated CXR with patchy interstitial and alveolar opacities bilaterally characteristic of a viral type pneumonitis and probable early Covid 19 pneumonia Continue IV dexamethasone, supplemental O2 as needed Covid isolation precautions Will administer cough suppressant and avoid any Lasix given low blood pressure (2) DARON (acute kidney injury): Plan: Cr elevated at 1.5 (baseline 1.1) in setting of poor PO intake. Gentle fluid resuscitation. Avoid nephrotoxic agents when able. Repeat BMP tomorrow We will advise more fluid intake and avoid any IV fluid (3) Paroxysmal atrial fibrillation: Plan: Clarifying with family whether or not patient taking Toprol 25mg daily. Not on anticoagulation (4) Diabetes mellitus, type II: Plan: A1c of 6.6 in Jul 2019. Repeat a1c for AM ordered Holding metformin SSI while receiving IV dexamethasone during admission BSG AC HS (5) Hx of sinoatrial node dysfunction: Plan: S/p pacemaker placement DVT Ppx: SQ heparin Code status: FULL PCP: Susan Dispo: Admitted to [facility] Patient seen in collaboration with Dr. Garza. Please see addendum. History of Present Illness Chief Complaint: SOB, cough Primary Care Provider: Linda Gallardo This is an 89yo M with a PMH of paroxysmal A fib, HTN, LATONIA on CPAP, history of sinoatrial node dysfunction s/p pacemaker who presents with viral symptoms over the past few days. Has been lying in bed due to feeling poorly. was recently admitted in [facility] with covid. Is not vaccinated. Endorses generalized weakness, productive cough and poor appetite with limited PO intake. Decreased urinary output. Denies fever, chills, lightheadedness, chest pain, palpitations, abdominal pain, dysuria, diarrhea constipation. Patient is a poor historian and hard of hearing. History of memory issues per chart review. Is alert and oriented to person, place and situation. Is unsure of home medications. Allergies Allergy/AdvReac Type Severity Reaction Status Date / Time aspirin AdvReac Unknown Verified 12/14/20 13:00 Home Medications Medication Instructions Recorded Confirmed Type allopurinol 300 mg tablet 300 mg PO DAILY 03/14/18 05/09/21 History metformin 500 mg tablet,extended 500 mg PO DAILY 05/09/21 05/09/21 History release 24 hr metoprolol succinate 25 mg 25 mg PO DAILY 05/09/21 05/09/21 History tablet,extended release 24 hr (Toprol XL) Past Med/Surg History Medical History (Updated 05/09/21 @ 17:04 by Key Lees PA-C) Depression Diabetes mellitus, type II Gout Hypertension LATONIA on CPAP Pacemaker Paroxysmal atrial fibrillation Prostate cancer Sepsis 10/2018 secondary to acute cholecystitis Surgical History H/O thumb surgery History of back surgery History of cholecystectomy 10/2018 Family History Brother Cancer Coronary heart disease Sister Breast cancer Social History Smoking Status: Never smoker Hx Alcohol Use: No Hx Substance Use: No Preferred Language: Slovenian Communication Ability: Effective Implementation Technician Required: No Beliefs That Will Affect Care: None Current Living Situation: Spouse Feels Safe at Home: Yes Assistive Devices: None Review of Systems Review of Systems: At least ten systems reviewed and negative except as noted in the HPI. Musculoskeletal: Generally weak and lethargic Neurologic: Pleasantly confused Physical Exam Physical Exam: Please see Dr. Garza's addendum for physical exam details. Lying in bed comfortably Constitutional: well developed, well nourished, + ill appearing and average body habitus Eyes: PERRL, conjunctivae normal, anicteric sclerae ENMT: external ear and nose normal, oropharynx normal Neck: trachea midline, no thyromegaly Respiratory: + cough (Occasional cough); no respiratory distress Auscultation: + diminished lung sounds and + crackles (Minimal crackles at the bases); no wheezes Cardiovascular: Rate/Rhythm: regular rate and regular rhythm; not tachycardic Heart Sounds: normal S1, normal S2 and + murmur (2/6 ESM over precordium) Gastrointestinal (Abdomen): Inspection/Auscultation: normal bowel sounds; abdomen not distended Percussion/Palpation: abdomen soft; abdomen nontender Musculoskeletal: No acute arthritis in any joint Neurologic: Alert awake and oriented. May have minimal confusion. Generally weak but no focal sensory and/or motor neuro deficit Lymphatic: no cervical or axillary lymphadenopathy Results & Data Results & Data ([facility]) Vital Signs (Past 12 Hours) Vital Signs Temp Pulse Pulse Resp BP Pulse Ox 05/09/21 14:53 75 18 92 05/09/21 14:17 93 05/09/21 13:51 36.6 C 78 18 110/70 94 Laboratory Results Short CBC 05/09/21 Range/Units 14:05 WBC 6.87 (4.8-10.8) K/uL Hgb 15.3 (14.0-18.0) g/dL Hct 45.4 (42-52) % Plt Count 100 L (130-400) K/uL BMP 05/09/21 14:05 Sodium 139 Potassium 4.1 Chloride 103 Carbon Dioxide 22 BUN 42 H Creatinine 1.54 H Glucose 132 H Calcium 9.0 Cardiac Enzymes 05/09/21 Range/Units 14:05 Troponin I 0.024 (0-0.045) ng/ml Liver Function 05/09/21 Range/Units 14:05 Total Bilirubin 0.8 (0.2-1) mg/dl AST 47 H (15-37) U/L ALT 29 (12-78) U/L Alkaline Phosphatase 46 (45-117) U/L Albumin 3.1 L (3.4-5.0) gm/dl Diagnostic Findings Chest X-Ray 05/09/21 13:54 XR chest 1V portable CLINICAL HISTORY: SOB. COMPARISON STUDY: 07/15/2019 TECHNIQUE: 1 view of the chest FINDINGS: Single frontal view of the chest demonstrates the cardiomediastinal silhouette to be within normal limits. Permanent cardiac pacer is in place. Patchy interstitial and alveolar opacities are present bilaterally. The findings are most characteristic of a viral type pneumonitis. Covid 19 pneumonia should be excluded. There is no evidence for pleural effusion. There is no evidence for vascular congestion. There is no acute osseous pathology. IMPRESSION: Patchy interstitial and alveolar opacities bilaterally characteristic of a viral type pneumonitis and probable early Covid 19 pneumonia. ACT 112: Negative or not required by law. Electronically signed by: Efraín Barron M.D. 05/09/2021 2:39 PM Supervising Physician Co-Signing Physician Notes Attending addendum The patient was seen and examined in the emergency room He was sent in by his family members with history of weakness, anorexia and not feeling well with occasional cough Noted to have COVID-19 infection without any significant shortness of breath and/or desaturation Examination is as above Admission labs and imaging studies reviewed Agree with assessment and plan as outlined above by Key Lees PA-C which is also modified by me DR Ivon Garza
[2021-05-09] MEDS ORDERED: SODIUM CHLORIDE 0.9% 500 ML IV SCH (21:53)
[2021-05-09] MEDS ORDERED: GLUCOSE 40% GEL 15 GM TUBE PO PRN (21:53)
[2021-05-09] MEDS ORDERED: ONDANSETRON INJ 2 MG/ML 2 ML VIAL IV PRN (21:53)
[2021-05-09] MEDS ORDERED: CARBOHYDRATES FOR HYPOGLYCEMIA PO PRN (21:53)
[2021-05-09] MEDS ORDERED: GLUCOSE 10 TABS/TUBE PO PRN (21:53)
[2021-05-09] MEDS ORDERED: POLYETHYLENE (MIRALAX) 17 GM PACK PO PRN (21:53)
[2021-05-09] MEDS ORDERED: DEXTROSE 50% 50 ML SYRINGE IV PRN (21:53)
[2021-05-09] MEDS ORDERED: GLUCAGON FOR INJ 1 MG VIAL SQ PRN (21:53)
[2021-05-09] MEDS: HEPARIN SOD 5,000 UNIT/0.5 ML VIAL SQ SCH (23:34)
[2021-05-09] MEDS: INSULIN ASPART 100 UNITS/ML 3 ML PEN SC SCH (23:40)
[2021-05-10 05:45] LABS: Hematocrit (blood only) 43.3 % (42-52); Hemoglobin 14.5 g/dL (14.0-18.0); Mean Corpuscular Hemoglobin 31.5 pg (25-34); Mean Corpuscular Hgb Conc 33.5 g/dL (32-36); Mean Corpuscular Volume 93.9 fL (80-100); Mean Platelet Volume 11.1 fL (7.4-10.4); Platelet Count 100 K/uL (130-400); RDW Coefficient of Variation 14.1 % (11.5-14.5); RDW Standard Deviation 48.3 fL (36.4-46.3); Red Blood Count 4.61 M/uL (4.7-6.1); White Blood Count 7.25 K/uL (4.8-10.8)
[2021-05-10 06:09] LABS: BUN Creatinine Ratio 32.9 (10-20); Creatinine Clr Calc Pharmacy 29.7 ml/min; Est GFR (African American) 47.2 ml/min; Est GFR (Non-African American) 40.7 ml/min
[2021-05-10 07:18] LABS: Appearance Urine Clear (Clear); Bacteria Urine Automated Negative (Negative); Bilirubin Urine Negative (Negative); Blood Urine Negative (Negative); Color Urine Dark Yellow; Epithelial Cell Urine Auto 20-30 /lpf (0-5); Glucose Urine UA 1+ (Negative); Ketones Urine Trace (Negative); Leukocyte Esterase Urine Negative (Negative); Nitrite Urine Negative (Negative); Protein Urine 1+ (Negative); RBC Urine Automated 0-4 /hpf (0-4); Specific Gravity Urine 1.027 (1.000-1.030); Urobilinogen Urine Negative (Negative)
[2021-05-10 07:58] LABS: Estimated Average Glucose 146 mg/dl; Hemoglobin A1C 6.7 % (4.5-5.6)
[2021-05-10] MEDS ORDERED: HEPARIN SOD (PORCINE) 1000 UNIT/ML ONE (10:19)
[2021-05-10] MEDS: HEPARIN SOD 5,000 UNIT/0.5 ML VIAL SQ SCH ×3 (11:06→22:45)
[2021-05-10] MEDS: INSULIN ASPART 100 UNITS/ML 3 ML PEN SC SCH ×4 (11:06→21:00)
[2021-05-10] MEDS: dexAMETHasone 6 MG in SYRINGE 0 ML IV SCH (11:07)
[2021-05-10] MEDS: allopurinoL 300 MG TAB PO SCH (11:07)
--- NOTE | 2021-05-10 14:41 | Electrocardiogram Report ---
Test Reason : Blood Pressure : / mmHG Vent. Rate : 082 BPM Atrial Rate : 082 BPM P-R Int : 146 ms QRS Dur : 076 ms QT Int : 366 ms P-R-T Axes : 041 049 001 degrees QTc Int : 427 ms Poor data quality, interpretation may be adversely affected Sinus rhythm with Premature atrial complexes Nonspecific ST abnormality Abnormal ECG When compared with ECG of 14-JUL-2019 14:39, Sinus rhythm has replaced Electronic atrial pacemaker Confirmed by Sanket Patton ([id number]) on 05/10/2021 2:41:30 PM Referred By: REFERRED SELF Confirmed By:Eric Patton
--- NOTE | 2021-05-10 18:22 | Hospitalist Progress Note ---
Date of Service May 10, 2021 Assessment & Plan (1) Pneumonia due to COVID-19 virus: Plan: Not being vaccinated for COVID-19 This is an 89yo M with a PMH of paroxysmal A fib, HTN, DM II, LATONIA on CPAP, history of sinoatrial node dysfunction s/p pacemaker who presents with viral symptoms over the past few days and was found to have Covid pneumonia. Feeling poorly for past few days, recently admitted in [facility] with covid. Is not vaccinated CXR with patchy interstitial and alveolar opacities bilaterally characteristic of a viral type pneumonitis and probable early Covid 19 pneumonia Continue IV dexamethasone, supplemental O2 as needed Covid isolation precautions Will administer cough suppressant and avoid any Lasix given low blood pressure He has been requiring 2 L of oxygen to maintain saturation We will check kidney function before restarting remdesivir tomorrow (2) DARON (acute kidney injury): Plan: Cr elevated at 1.5 (baseline 1.1) in setting of poor PO intake. Gentle fluid resuscitation. Avoid nephrotoxic agents when able. Repeat BMP tomorrow We will advise more fluid intake and avoid any IV fluid (3) Paroxysmal atrial fibrillation: Plan: Clarifying with family whether or not patient taking Toprol 25mg daily. Not on anticoagulation Rate is controlled (4) Diabetes mellitus, type II: Plan: A1c of 6.6 in Jul 2019. Repeat a1c for AM ordered Holding metformin SSI while receiving IV dexamethasone during admission BSG AC HS (5) Hx of sinoatrial node dysfunction: Plan: S/p pacemaker placement DVT Ppx: SQ heparin Code status: FULL PCP: Susan Dispo: Admitted to [facility] Patient seen in collaboration with Dr. Garza. Please see addendum. Admission and Anticipated Discharge Date Admission Date: May 09, 2021 Subjective 05/10/2021 The patient was seen and examined in emergency room in the holding area He remained stable Remains generally weak anorexic and minimal shortness of breath at rest Review of Systems Review of Systems: At least ten systems reviewed and negative except as noted in the HPI. Musculoskeletal: Generally weak and lethargic Neurologic: Pleasantly confused Physical Exam Physical Exam: Please see Dr. Garza's addendum for physical exam details. Lying in bed comfortably Constitutional: well developed, well nourished, + ill appearing and average body habitus Eyes: PERRL, conjunctivae normal, anicteric sclerae ENMT: external ear and nose normal, oropharynx normal Neck: trachea midline, no thyromegaly Respiratory: + cough (Occasional cough); no respiratory distress Auscultation: + diminished lung sounds and + crackles (Minimal crackles at the bases); no wheezes Cardiovascular: Rate/Rhythm: regular rate and regular rhythm; not tachycardic Heart Sounds: normal S1, normal S2 and + murmur (2/6 ESM over precordium) Gastrointestinal (Abdomen): Inspection/Auscultation: normal bowel sounds; abdomen not distended Percussion/Palpation: abdomen soft; abdomen nontender Musculoskeletal: No acute arthritis in any joint Neurologic: Alert and awake. Answers questions appropriately may have minimal confusion. Generally weak Lymphatic: no cervical or axillary lymphadenopathy Results & Data Results & Data ([facility]) Vital Signs (Past 12 Hours) Vital Signs Temp Pulse Resp BP Pulse Ox 05/10/21 17:27 36.7 C 62 20 121/74 92 05/10/21 15:24 80 20 136/86 95 05/10/21 12:00 68 20 111/72 94 05/10/21 08:30 70 18 123/78 94 05/10/21 06:27 63 20 136/73 93 Laboratory Results Short CBC 05/10/21 Range/Units 05:27 WBC 7.25 (4.8-10.8) K/uL Hgb 14.5 (14.0-18.0) g/dL Hct 43.3 (42-52) % Plt Count 100 L (130-400) K/uL BMP 05/10/21 05:27 Sodium 141 Potassium 4.0 Chloride 109 H Carbon Dioxide 24 BUN 49 H Creatinine 1.50 H Glucose 177 H Calcium 9.0 Urine 05/10/21 Range/Units 07:05 Urine Color Dark Yellow Urine Appearance Clear (Clear) Urine pH 5.0 (4.5-7.5) Ur Specific [place] 1.027 (1.000-1.030) Urine Protein 1+ H (Negative) Urine Glucose (UA) 1+ H (Negative) Medications Administered Current Inpatient Medications Acetaminophen (Acetaminophen 325 Mg Tab) 650 mg PO Q4H PRN PRN Reason: Pain or Fever Stop: 06/08/21 21:52 Allopurinol (Allopurinol 300 Mg Tab) 300 mg PO DAILY ALICE Stop: 06/09/21 08:59 Last Admin: 05/10/21 11:07 Dose: 300 mg Documented by: Dextrose (Dextrose 50% 50 Ml Syringe) 25 - 50 ml IV UD PRN; Protocol PRN Reason: Hypoglycemia Protocol Stop: 06/08/21 21:52 Glucagon (Glucagon For Inj 1 Mg Vial) 1 mg SQ UD PRN; Protocol PRN Reason: Hypoglycemia Protocol Stop: 06/08/21 21:52 Glucose (Glucose 10 Tabs/Tube) 4 - 8 tabs PO UD PRN; Protocol PRN Reason: Hypoglycemia Protocol Stop: 06/08/21 21:52 Glucose (Glucose 40% Gel 15 Gm Tube) 15 - 30 gm PO UD PRN; Protocol PRN Reason: Hypoglycemia Protocol Stop: 06/08/21 21:52 Heparin Sodium (Porcine) (Heparin Sod 5,000 Unit/0.5 Ml Vial) 5,000 units SQ Q8 ALICE Stop: 06/08/21 21:59 Last Admin: 05/10/21 14:00 Dose: Not Given Documented by: Dexamethasone 6 mg/ Syringe 1.5 mls @ 1 mls/min IV Q24H ALICE Stop: 06/09/21 08:59 Last Admin: 05/10/21 11:07 Dose: 1 mls/min Documented by: Insulin Aspart (Insulin Aspart 100 Units/Ml 3 Ml Pen) 0 units SC ACHS ALICE Stop: 06/08/21 21:52 Last Admin: 05/10/21 17:28 Dose: Not Given Documented by: Miscellaneous (Carbohydrates For Hypoglycemia ) 15 - 30 gm PO UD PRN PRN Reason: Hypoglycemia Protocol Stop: 06/08/21 21:52 Ondansetron HCl (Ondansetron Inj 2 Mg/Ml 2 Ml Vial) 4 mg IV Q6H PRN PRN Reason: Nausea Stop: 06/08/21 21:52 Polyethylene Glycol (Polyethylene (Miralax) 17 Gm Pack) 17 gm PO DAILY PRN PRN Reason: Constipation Stop: 06/08/21 21:52
[2021-05-11] MEDS: HEPARIN SOD 5,000 UNIT/0.5 ML VIAL SQ SCH ×3 (06:29→21:19)
[2021-05-11] MEDS: dexAMETHasone 6 MG in SYRINGE 0 ML IV SCH (08:10)
[2021-05-11] MEDS: allopurinoL 300 MG TAB PO SCH (08:10)
[2021-05-11] MEDS: METOPROLOL SUCC 25MG EXT REL TAB PO SCH (08:11)
[2021-05-11] MEDS: INSULIN ASPART 100 UNITS/ML 3 ML PEN SC SCH ×4 (08:22→21:18)
[2021-05-11 08:55] LABS: Hematocrit (blood only) 44.5 % (42-52); Mean Corpuscular Hemoglobin 30.9 pg (25-34); Mean Corpuscular Hgb Conc 33.7 g/dL (32-36); Mean Corpuscular Volume 91.8 fL (80-100); Mean Platelet Volume 12.2 fL (7.4-10.4); Platelet Count 124 K/uL (130-400); RDW Standard Deviation 47.3 fL (36.4-46.3); Red Blood Count 4.85 M/uL (4.7-6.1); White Blood Count 15.47 K/uL (4.8-10.8)
[2021-05-11 09:05] LABS: BUN Creatinine Ratio 38.9 (10-20); Calcium 9.3 mg/dl (8.5-10.1); Creatinine Clr Calc Pharmacy 37.5 ml/min; Est GFR (African American) 62.4 ml/min; Est GFR (Non-African American) 53.8 ml/min
[2021-05-11 09:08] LABS: Albumin Globulin Ratio 0.7 (0.9-2); Bilirubin,Total 0.5 mg/dl (0.2-1); C Reactive Protein 1.92 mg/dl (0-0.29); Globulin 4.3 gm/dl (2.5-4.0); Total Protein 7.3 gm/dl (6.4-8.2)
[2021-05-11 09:30] LABS: Echinocytes 1+; Immature Granulocytes # (auto) 0.06 K/uL (0.00-0.02); Immature Granulocytes % (auto) 0.4 %; Lymphocytes % (auto) 29.7 %; Monocytes # (auto) 0.54 K/uL (0.11-0.59); Monocytes % (auto) 3.5 %; Neutrophils # (auto) 10.27 K/uL (1.4-6.5); Neutrophils % (auto) 66.4 %
--- NOTE | 2021-05-11 23:38 | Hospitalist Progress Note ---
Date of Service May 11, 2021 Assessment & Plan (1) Pneumonia due to COVID-19 virus: Plan: This is an 89yo M with a PMH of paroxysmal A fib, HTN, DM II, LATONIA on CPAP, history of sinoatrial node dysfunction s/p pacemaker who presents with viral symptoms over the past few days and was found to have Covid pneumonia. Not being vaccinated for COVID-19 CXR with patchy interstitial and alveolar opacities bilaterally characteristic of a viral type pneumonitis and probable early Covid 19 pneumonia Continue IV dexamethasone Continue oxygen supplement Will consider to restart Remdesivir Will add guaifenesin, incentive spirometry and flutter valve Will need to monitor Liver enzymes if remdesivir restarted Continue monitor closely (2) DARON (acute kidney injury): Plan: Cr elevated at 1.5 (baseline 1.1) in setting of poor PO intake. Received gentle fluid resuscitation. Avoid nephrotoxic agents when able. Creatinine 1.19 today Continue monitor BMP (3) Paroxysmal atrial fibrillation: Plan: Not on anticoagulation Rate is controlled Continue metoprolol 25mg daily (4) Diabetes mellitus, type II: Plan: Most recent Ha1c 6.7 on 05/10 Continue to holding metformin SSI while receiving IV dexamethasone during admission Continue monitor BS (5) Hx of sinoatrial node dysfunction: Plan: S/p pacemaker placement DVT Ppx: SQ heparin Code status: FULL PCP: Susan Dispo: Will discharge once medically stable Admission and Anticipated Discharge Date Admission Date: May 09, 2021 Subjective Pt was seen and examined for follow up of SOB due to covid 19 Lying in bed with no acute distress Pt continues to cough but unable to bring the phlegm up Currently on 1 LNC oxygen supplement He said that he feels weak Denies any chest pain, palpitation, dizziness and fever Review of Systems Review of Systems: All systems reviewed & are unremarkable except as noted in Subjective Physical Exam Physical Exam: General- No acute distress Head- atraumatic Eyes- PERRL, EOMI, ENT- oropharynx clear Neck- supple, no JVD Lungs- diminished BS Heart- regular rhythm; no murmur Abdomen- normal bowel sounds, soft, nontender Extremities- no calf tenderness Neuro- alert, oriented x 3; PERRL, EOMI; no facial palsy; no dysarthria Skin- warm & dry Results & Data Results & Data ([facility]) Vital Signs (Past 12 Hours) Vital Signs Temp Pulse Pulse Resp BP BP Pulse Ox 05/11/21 20:12 37.4 C 66 12 128/74 91 05/11/21 15:33 36.9 C 69 18 116/66 89 L 05/11/21 14:18 67 05/11/21 11:54 36.7 C 64 17 114/76 89 L
[2021-05-12] MEDS: HEPARIN SOD 5,000 UNIT/0.5 ML VIAL SQ SCH ×3 (05:21→20:10)
[2021-05-12 07:40] LABS: Hematocrit (blood only) 45.3 % (42-52); Hemoglobin 15.4 g/dL (14.0-18.0); Mean Corpuscular Hemoglobin 31.6 pg (25-34); Mean Corpuscular Volume 92.8 fL (80-100); Mean Platelet Volume 11.1 fL (7.4-10.4); Platelet Count 137 K/uL (130-400); RDW Coefficient of Variation 14.2 % (11.5-14.5); RDW Standard Deviation 48.3 fL (36.4-46.3); Red Blood Count 4.88 M/uL (4.7-6.1)
[2021-05-12 08:09] LABS: BUN Creatinine Ratio 31.4 (10-20); C Reactive Protein 3.45 mg/dl (0-0.29); Calcium 9.6 mg/dl (8.5-10.1); Creatinine Clr Calc Pharmacy 31.6 ml/min; Est GFR (African American) 50.8 ml/min; Est GFR (Non-African American) 43.9 ml/min; Potassium 4.2 mmol/L (3.5-5.1)
[2021-05-12 08:11] LABS: Albumin Globulin Ratio 0.7 (0.9-2); Bilirubin,Total 0.7 mg/dl (0.2-1); Globulin 4.2 gm/dl (2.5-4.0); Total Protein 7.2 gm/dl (6.4-8.2)
[2021-05-12] MEDS: dexAMETHasone 6 MG in SYRINGE 0 ML IV SCH (09:05)
[2021-05-12] MEDS: allopurinoL 300 MG TAB PO SCH (09:05)
[2021-05-12] MEDS: METOPROLOL SUCC 25MG EXT REL TAB PO SCH (09:06)
[2021-05-12] MEDS: INSULIN ASPART 100 UNITS/ML 3 ML PEN SC SCH ×4 (09:34→21:34)
[2021-05-12] MEDS: guaiFENesin 200 MG TAB PO SCH ×3 (10:38→20:10)
--- NOTE | 2021-05-12 11:10 | Hospitalist Progress Note ---
Date of Service May 12, 2021 Assessment & Plan (1) Pneumonia due to COVID-19 virus: Plan: This is an 89yo M with a PMH of paroxysmal A fib, HTN, DM II, LATONIA on CPAP, history of sinoatrial node dysfunction s/p pacemaker who presents with viral symptoms over the past few days and was found to have Covid pneumonia. Not being vaccinated for COVID-19 CXR with patchy interstitial and alveolar opacities bilaterally characteristic of a viral type pneumonitis and probable early Covid 19 pneumonia Continue IV dexamethasone Continue oxygen supplement Will consider to restart Remdesivir today Will add guaifenesin, incentive spirometry and flutter valve Will need to monitor Liver enzymes if remdesivir restarted Continue monitor closely (2) DARON (acute kidney injury): Plan: Cr elevated at 1.5 (baseline 1.1) in setting of poor PO intake. Received gentle fluid resuscitation. Avoid nephrotoxic agents when able. Creatinine 1.4 today Continue monitor BMP (3) Paroxysmal atrial fibrillation: Plan: Not on anticoagulation Rate is controlled Continue metoprolol 25mg daily (4) Diabetes mellitus, type II: Plan: Most recent Ha1c 6.7 on 05/10 Continue to holding metformin SSI while receiving IV dexamethasone during admission Continue monitor BS (5) Hx of sinoatrial node dysfunction: Plan: S/p pacemaker placement DVT Ppx: SQ heparin Code status: FULL PCP: Susan Dispo: Will discharge once medically stable Admission and Anticipated Discharge Date Admission Date: May 09, 2021 Subjective Pt was seen and examined for follow up of SOB due to covid 19 Lying in bed with no acute distress Pt continue to cough Currently on 2 LNC oxygen supplement He said that he feels weak Denies any chest pain, palpitation, dizziness and fever Review of Systems Review of Systems: All systems reviewed & are unremarkable except as noted in Subjective Physical Exam Physical Exam: General- No acute distress Head- atraumatic Eyes- PERRL, EOMI, ENT- oropharynx clear Neck- supple, no JVD Lungs- diminished BS Heart- regular rhythm; no murmur Abdomen- normal bowel sounds, soft, nontender Extremities- no calf tenderness Neuro- alert, oriented x 3; PERRL, EOMI; no facial palsy; no dysarthria Skin- warm & dry Results & Data Results & Data ([facility]) Vital Signs (Past 12 Hours) Vital Signs Temp Pulse Pulse Resp BP Pulse Ox 05/12/21 08:02 37.3 C 89 18 127/74 85 L 05/12/21 06:19 83 05/12/21 03:50 36.8 C 72 20 137/78 92 05/12/21 03:46 36.6 C 72 20 137/78 92
[2021-05-12] MEDS ORDERED: REMDESIVIR 200 MG in SODIUM CHLORIDE 0.9% 210 ML IV ONE (11:30)
[2021-05-12] MEDS: SODIUM CHLORIDE 0.9% 10ML FLUSH IV SCH (12:05)
[2021-05-13] MEDS: guaiFENesin 200 MG TAB PO SCH ×3 (05:46→21:24)
[2021-05-13] MEDS: HEPARIN SOD 5,000 UNIT/0.5 ML VIAL SQ SCH ×3 (05:46→21:23)
[2021-05-13] MEDS: INSULIN ASPART 100 UNITS/ML 3 ML PEN SC SCH ×4 (08:15→21:12)
[2021-05-13] MEDS: METOPROLOL SUCC 25MG EXT REL TAB PO SCH (08:35)
[2021-05-13] MEDS: allopurinoL 300 MG TAB PO SCH (08:35)
[2021-05-13] MEDS: dexAMETHasone 6 MG in SYRINGE 0 ML IV SCH (10:15)
[2021-05-13 10:23] LABS: Hematocrit (blood only) 43.1 % (42-52); Hemoglobin 14.8 g/dL (14.0-18.0); Mean Corpuscular Hemoglobin 31.5 pg (25-34); Mean Corpuscular Hgb Conc 34.3 g/dL (32-36); Mean Corpuscular Volume 91.7 fL (80-100); Mean Platelet Volume 10.6 fL (7.4-10.4); Platelet Count 133 K/uL (130-400); RDW Coefficient of Variation 14.2 % (11.5-14.5); RDW Standard Deviation 48.1 fL (36.4-46.3)
[2021-05-13 10:45] LABS: Albumin Level 2.8 gm/dl (3.4-5.0); BUN Creatinine Ratio 45.5 (10-20); Calcium 9.6 mg/dl (8.5-10.1); Creatinine Clr Calc Pharmacy 40.1 ml/min; Est GFR (African American) 68.6 ml/min; Est GFR (Non-African American) 59.2 ml/min
[2021-05-13 10:48] LABS: Albumin Globulin Ratio 0.7 (0.9-2); Bilirubin,Total 0.6 mg/dl (0.2-1); C Reactive Protein 8.29 mg/dl (0-0.29); Globulin 4.1 gm/dl (2.5-4.0); Total Protein 6.9 gm/dl (6.4-8.2)
[2021-05-13] MEDS: REMDESIVIR 100 MG in SODIUM CHLORIDE 0.9% 230 ML IV SCH (12:18)
[2021-05-13] MEDS: SODIUM CHLORIDE 0.9% 10ML FLUSH IV SCH (13:32)
--- NOTE | 2021-05-13 17:23 | Hospitalist Progress Note ---
Date of Service May 13, 2021 Assessment & Plan (1) Pneumonia due to COVID-19 virus: Plan: This is an 89yo M with a PMH of paroxysmal A fib, HTN, DM II, LATONIA on CPAP, history of sinoatrial node dysfunction s/p pacemaker who presents with viral symptoms over the past few days and was found to have Covid pneumonia. Not being vaccinated for COVID-19 CXR with patchy interstitial and alveolar opacities bilaterally characteristic of a viral type pneumonitis and probable early Covid 19 pneumonia Continue IV dexamethasone and Remdesivir Elevated inflammatory marker such as CRP 8.29 and ESR 59 Continue oxygen supplement Continue guaifenesin, incentive spirometry and flutter valve Continue monitor Liver enzymes if remdesivir restarted Continue monitor closely (2) DARON (acute kidney injury): Plan: Cr elevated at 1.5 (baseline 1.1) in setting of poor PO intake. Received gentle fluid resuscitation. Avoid nephrotoxic agents when able. Creatinine 1.1 today Continue monitor BMP (3) Paroxysmal atrial fibrillation: Plan: Not on anticoagulation Rate is controlled Continue metoprolol 25mg daily (4) Diabetes mellitus, type II: Plan: Most recent Ha1c 6.7 on 05/10 Continue to holding metformin SSI while receiving IV dexamethasone during admission Continue monitor BS (5) Hx of sinoatrial node dysfunction: Plan: S/p pacemaker placement DVT Ppx: SQ heparin Code status: FULL PCP: Susan Dispo: Will discharge once medically stable Admission and Anticipated Discharge Date Admission Date: May 09, 2021 Subjective Pt was seen and examined for follow up of SOB due to covid 19 Lying in bed with no acute distress Currently on 2 LNC oxygen supplement Pt said that he is feeling a little better Denies any chest pain, palpitation, dizziness and fever Review of Systems Review of Systems: All systems reviewed & are unremarkable except as noted in Subjective Physical Exam Physical Exam: General- No acute distress Head- atraumatic Eyes- PERRL, EOMI, ENT- oropharynx clear Neck- supple, no JVD Lungs- diminished BS Heart- regular rhythm; no murmur Abdomen- normal bowel sounds, soft, nontender Extremities- no calf tenderness Neuro- alert, oriented x 3; PERRL, EOMI; no facial palsy; no dysarthria Skin- warm & dry Results & Data Results & Data ([facility]) Vital Signs (Past 12 Hours) Vital Signs Temp Pulse Pulse Resp BP Pulse Ox Pulse Ox 05/13/21 16:06 36.4 C L 68 20 114/74 92 05/13/21 15:40 64 05/13/21 14:03 70 05/13/21 12:44 36.8 C 71 19 132/86 91 05/13/21 08:16 36.7 C 77 20 128/73 92 05/13/21 06:24 92
[2021-05-13] MEDS ORDERED: FUROSEMIDE INJ 20 MG/2 ML VIAL IV ONE (17:47)
[2021-05-14] MEDS ORDERED: ALBUT/IPRATROP 3MG/0.5MG NEB 3 ML VIAL NEB STA (01:40)
--- NOTE | 2021-05-14 01:46 | Communication Note ---
Date of Service: May 14, 2021 Made aware by RN of increasing O2 requirement. Patient currently admitted for severe COVID-19 pneumonia on Decadron and Remdesivir. Pulmonology consult if okay with a.m. provider.
[2021-05-14] MEDS ORDERED: dexAMETHasone 6 MG in SYRINGE 0 ML IV ONE (02:00)
[2021-05-14 02:43] LABS: Hematocrit (blood only) 49.1 % (42-52); Hemoglobin 16.5 g/dL (14.0-18.0); Mean Corpuscular Hemoglobin 31.3 pg (25-34); Mean Corpuscular Hgb Conc 33.6 g/dL (32-36); Mean Corpuscular Volume 93.2 fL (80-100); Mean Platelet Volume 11.3 fL (7.4-10.4); Platelet Count 154 K/uL (130-400); RDW Coefficient of Variation 14.2 % (11.5-14.5); RDW Standard Deviation 48.3 fL (36.4-46.3); Red Blood Count 5.27 M/uL (4.7-6.1); White Blood Count 13.91 K/uL (4.8-10.8)
[2021-05-14 02:49] LABS: Base Excess ABG -1.1 mEq/L (-9-1.8); HCO3 ABG 21 mmol/L (19-24); Oxygen Saturation ABG 93.9 % (90-95); PCO2 ABG 28 mmHg (35-46); PO2 ABG 65 mmHg (80-95); pH ABG 7.49 (7.35-7.45)
[2021-05-14 02:50] LABS: Allen Test POS (Pos)
[2021-05-14 02:53] LABS: Partial Thromboplastin Ratio 1.2; Partial Thromboplastin Time 30.8 Seconds (21.0-31.0)
[2021-05-14 03:01] LABS: Albumin Level 3.1 gm/dl (3.4-5.0); Calcium 9.8 mg/dl (8.5-10.1); Creatinine Clr Calc Pharmacy 32.9 ml/min; Est GFR (African American) 54.1 ml/min; Est GFR (Non-African American) 46.6 ml/min; Magnesium 2.7 mg/dl (1.8-2.4); Potassium 3.9 mmol/L (3.5-5.1)
[2021-05-14 03:03] LABS: Albumin Globulin Ratio 0.7 (0.9-2); Bilirubin,Total 0.8 mg/dl (0.2-1); C Reactive Protein 9.39 mg/dl (0-0.29); Globulin 4.5 gm/dl (2.5-4.0); Total Protein 7.6 gm/dl (6.4-8.2)
[2021-05-14 03:39] LABS: Basophils # (auto) 0.01 K/uL (0-0.2); Basophils % (auto) 0.1 %; Immature Granulocytes % (auto) 0.7 %; Lymphocytes # (auto) 4.03 K/uL (1.2-3.4); Monocytes # (auto) 0.51 K/uL (0.11-0.59); Monocytes % (auto) 3.7 %; Neutrophils # (auto) 9.26 K/uL (1.4-6.5); Neutrophils % (auto) 66.5 %; RBC Morphology Unremarkable
[2021-05-14] MEDS: HEPARIN SOD 5,000 UNIT/0.5 ML VIAL SQ SCH ×3 (05:53→20:29)
[2021-05-14] MEDS: guaiFENesin 200 MG TAB PO SCH ×3 (05:54→20:29)
--- NOTE | 2021-05-14 07:41 | XRay Report ---
XR chest 1V portable HISTORY: Hypoxia. COMPARISON: Chest 05/01/2021. FINDINGS: No pneumothorax. No pleural effusions. The heart remains normal in size. There is left-side d dual-chamber pacemaker. Moderate hiatus hernia is noted. Patchy bilateral mid to lower lung zone ai rspace opacities have slightly progressed. No evidence for pulmonary edema. IMPRESSION: Slight progression of the patchy bilateral airspace opacities likely representing a viral pneumonia. ACT 112: Negative or not required by law. Electronically signed by: Christian Newman M.D. 05/14/2021 7:40 AM
[2021-05-14] MEDS: INSULIN ASPART 100 UNITS/ML 3 ML PEN SC SCH ×4 (08:15→21:20)
[2021-05-14] MEDS: METOPROLOL SUCC 25MG EXT REL TAB PO SCH (09:23)
[2021-05-14] MEDS: allopurinoL 300 MG TAB PO SCH (09:23)
[2021-05-14] MEDS: REMDESIVIR 100 MG in SODIUM CHLORIDE 0.9% 230 ML IV SCH (12:05)
[2021-05-14] MEDS: SODIUM CHLORIDE 0.9% 10ML FLUSH IV SCH (13:31)
--- NOTE | 2021-05-15 02:42 | Hospitalist Progress Note ---
Date of Service May 14, 2021 Assessment & Plan (1) Pneumonia due to COVID-19 virus: Plan: This is an 89yo M with a PMH of paroxysmal A fib, HTN, DM II, LATONIA on CPAP, history of sinoatrial node dysfunction s/p pacemaker who presents with viral symptoms over the past few days and was found to have Covid pneumonia. Not being vaccinated for COVID-19 CXR with patchy interstitial and alveolar opacities bilaterally characteristic of a viral type pneumonitis and probable early Covid 19 pneumonia Was started on IV dexamethasone and Remdesivir Elevated inflammatory marker such as CRP 9.39 ESR decreased from 59 to 24 Patient was transition to high flow oxygen Continue guaifenesin, incentive spirometry and flutter valve Consult was placed to pulmonary but cancelled after discussed with pulm that recommended to continue current management Dexamethasone was increased to 10mg daily As per pulm, patient was not a candidate for baricitinib Discussed with nurse to continue encourage patient with self proning Daughter Delayne requests to discontinue remdesivir Due to side effect profile, Felecia was in agreement with that We will consider low-dose Lasix to keep patient dry Continue monitor closely (2) DARON (acute kidney injury): Plan: Cr elevated at 1.5 (baseline 1.1) in setting of poor PO intake. Received gentle fluid resuscitation. Avoid nephrotoxic agents when able. Creatinine 1.3 today Continue monitor BMP (3) Paroxysmal atrial fibrillation: Plan: Not on anticoagulation Rate is controlled Continue metoprolol 25mg daily (4) Diabetes mellitus, type II: Plan: Most recent Ha1c 6.7 on 05/10 Continue to holding metformin SSI while receiving IV dexamethasone during admission Continue monitor BS (5) Hx of sinoatrial node dysfunction: Plan: S/p pacemaker placement DVT Ppx: SQ heparin Code status: Changed to DNR as per patient wish and daughters in agreement with his decision PCP: Susan Dispo: Will discharge once medically stable Admission and Anticipated Discharge Date Admission Date: May 09, 2021 Subjective Pt was seen and examined for follow up of SOB due to covid 19 Lying in bed feeling very weak with oxygen saturation in the 87% His oxygen requirement has been increased to high flow But patient continues saying that he is not having any worsening shortness of breath He said that he feels weak and his appetite has been very poor I spoke to both sister Felecia and Estrada over the phone in detail and provided with updates Sister is very adamant to continue with the Remdesivir due to side effect profile such as weakness, hepatotoxicity Remdesivir was discontinued as per daughters request CODE STATUS was changed to DNR as per patient wish and daughter were in agreement with that Review of Systems Review of Systems: All systems reviewed & are unremarkable except as noted in Subjective Physical Exam Physical Exam: General- No acute distress Head- atraumatic Eyes- PERRL, EOMI, ENT- oropharynx clear Neck- supple, no JVD Lungs- diminished BS Heart- regular rhythm; no murmur Abdomen- normal bowel sounds, soft, nontender Extremities- no calf tenderness Neuro- alert, oriented x 3; PERRL, EOMI; no facial palsy; no dysarthria Skin- warm & dry Results & Data Results & Data ([facility]) Vital Signs (Past 12 Hours) Vital Signs Temp Pulse Pulse Pulse Resp BP Pulse Ox 05/15/21 02:00 22 90 05/15/21 01:55 80 05/15/21 01:15 36.6 C 91 H 30 H 122/78 92 05/14/21 23:44 36.6 C 83 24 123/73 95 05/14/21 20:30 85 85 20 91 05/14/21 19:00 36.8 C 90 28 H 120/75 100 05/14/21 17:13 68 20 92 05/14/21 16:00 60 05/14/21 15:58 36.4 C L 67 20 112/73 87 L
[2021-05-15] MEDS: HEPARIN SOD 5,000 UNIT/0.5 ML VIAL SQ SCH ×3 (06:16→20:44)
[2021-05-15] MEDS: guaiFENesin 200 MG TAB PO SCH ×3 (06:20→20:43)
[2021-05-15] MEDS: METOPROLOL SUCC 25MG EXT REL TAB PO SCH (08:44)
[2021-05-15] MEDS: allopurinoL 300 MG TAB PO SCH (08:44)
[2021-05-15] MEDS: INSULIN ASPART 100 UNITS/ML 3 ML PEN SC SCH ×4 (08:45→20:44)
[2021-05-15] MEDS ORDERED: dexAMETHasone 6 MG in SYRINGE 0 ML IV SCH (09:00)
[2021-05-15 10:13] LABS: Hematocrit (blood only) 47.4 % (42-52); Hemoglobin 15.9 g/dL (14.0-18.0); Mean Corpuscular Hemoglobin 31.2 pg (25-34); Mean Corpuscular Hgb Conc 33.5 g/dL (32-36); Mean Corpuscular Volume 93.1 fL (80-100); Mean Platelet Volume 11.3 fL (7.4-10.4); Platelet Count 165 K/uL (130-400); RDW Coefficient of Variation 14.3 % (11.5-14.5); RDW Standard Deviation 48.5 fL (36.4-46.3); Red Blood Count 5.09 M/uL (4.7-6.1)
[2021-05-15] MEDS: SODIUM CHLORIDE 0.9% 10ML FLUSH IV SCH (10:42)
[2021-05-15 10:43] LABS: Albumin Level 2.6 gm/dl (3.4-5.0); BUN Creatinine Ratio 52.5 (10-20); Calcium 9.8 mg/dl (8.5-10.1); Est GFR (African American) 60.5 ml/min; Est GFR (Non-African American) 52.2 ml/min
[2021-05-15 11:00] LABS: Albumin Globulin Ratio 0.6 (0.9-2); Bilirubin,Total 0.8 mg/dl (0.2-1); C Reactive Protein 8.84 mg/dl (0-0.29); Ferritin 2726.7 ng/ml (8-388); Globulin 4.2 gm/dl (2.5-4.0); Total Protein 6.8 gm/dl (6.4-8.2)
[2021-05-15] MEDS ORDERED: dexAMETHasone 10 MG in SYRINGE 0 ML IV SCH (16:00)
[2021-05-15] MEDS: ACETAMINOPHEN 325 MG TAB PO PRN (20:42)
--- NOTE | 2021-05-15 23:23 | Hospitalist Progress Note ---
Date of Service May 15, 2021 Assessment & Plan (1) Pneumonia due to COVID-19 virus: Plan: This is an 89yo M with a PMH of paroxysmal A fib, HTN, DM II, LATONIA on CPAP, history of sinoatrial node dysfunction s/p pacemaker who presents with viral symptoms over the past few days and was found to have Covid pneumonia. Not being vaccinated for COVID-19 CXR with patchy interstitial and alveolar opacities bilaterally characteristic of a viral type pneumonitis and probable early Covid 19 pneumonia Was started on IV dexamethasone and Remdesivir Elevated inflammatory marker such as CRP 9.39 ESR decreased from 59 to 24 Patient was transition to high flow oxygen Continue guaifenesin, incentive spirometry and flutter valve Consult was placed to pulmonary but cancelled after discussed with pulm that recommended to continue current management Dexamethasone was increased to 10mg daily As per pulm, patient was not a candidate for baricitinib Discussed with nurse to continue encourage patient with self proning Daughter Delayne requests to discontinue remdesivir Due to side effect profile, Felecia was in agreement with that We will consider low-dose Lasix to keep patient dry Continue High flow oxygen Continue monitor closely (2) DARON (acute kidney injury): Plan: Cr elevated at 1.5 (baseline 1.1) in setting of poor PO intake. Received gentle fluid resuscitation. Avoid nephrotoxic agents when able. Creatinine 1.2 today Continue monitor BMP (3) Paroxysmal atrial fibrillation: Plan: Not on anticoagulation Rate is controlled Continue metoprolol 25mg daily (4) Diabetes mellitus, type II: Plan: Most recent Ha1c 6.7 on 05/10 Continue to holding metformin SSI while receiving IV dexamethasone during admission Continue monitor BS (5) Hx of sinoatrial node dysfunction: Plan: S/p pacemaker placement DVT Ppx: SQ heparin Code status: Changed to DNR as per patient wish and daughters in agreement with his decision PCP: Susan Dispo: Will discharge once medically stable Admission and Anticipated Discharge Date Admission Date: May 09, 2021 Subjective Pt was seen and examined for follow up of SOB due to covid 19 Lying in bed feeling very weak on high flow His oxygen requirement has been increased to high flow But patient continues saying that he is not having any worsening shortness of breath He said that he feels weak and his appetite has been very poor Review of Systems Review of Systems: All systems reviewed & are unremarkable except as noted in Subjective Physical Exam Physical Exam: General- No acute distress Head- atraumatic Eyes- PERRL, EOMI, ENT- oropharynx clear Neck- supple, no JVD Lungs- diminished BS Heart- regular rhythm; no murmur Abdomen- normal bowel sounds, soft, nontender Extremities- no calf tenderness Neuro- alert, oriented x 3; PERRL, EOMI; no facial palsy; no dysarthria Skin- warm & dry Results & Data Results & Data ([facility]) Vital Signs (Past 12 Hours) Vital Signs Temp Pulse Pulse Resp BP BP Pulse Ox 05/15/21 19:54 99 H 24 95 05/15/21 19:00 36.7 C 90 20 105/74 90 05/15/21 15:52 99 H 05/15/21 15:44 37.1 C 92 H 24 107/61 88 L 05/15/21 14:18 95 H 22 92 05/15/21 12:30 36.6 C 89 22 96/60 L 88 L
[2021-05-16] MEDS: HEPARIN SOD 5,000 UNIT/0.5 ML VIAL SQ SCH ×3 (04:47→21:09)
[2021-05-16] MEDS: guaiFENesin 200 MG TAB PO SCH ×3 (04:47→21:08)
[2021-05-16] MEDS ORDERED: XOPENEX/ATROVENT 1.25mg/0.5MG NEB COMBO NEB STA (05:25)
[2021-05-16] MEDS ORDERED: IPRATROPIUM BROMIDE NEB SOLN 0.02% 2.5 ML VIAL INH STA (05:25)
[2021-05-16] MEDS ORDERED: LEVALBUTEROL 1.25MG/0.5ML NEB INH STA (05:25)
[2021-05-16] MEDS: dexAMETHasone 10 MG in SYRINGE 0 ML IV ONE ×2 (06:32→07:37)
[2021-05-16] MEDS: METOPROLOL SUCC 25MG EXT REL TAB PO SCH (06:33)
[2021-05-16] MEDS: ACETAMINOPHEN 325 MG TAB PO PRN ×2 (07:51→21:11)
[2021-05-16] MEDS: allopurinoL 300 MG TAB PO SCH (07:51)
[2021-05-16] MEDS: INSULIN ASPART 100 UNITS/ML 3 ML PEN SC SCH ×4 (10:52→21:08)
[2021-05-16 11:44] LABS: Partial Thromboplastin Ratio 1.1; Partial Thromboplastin Time 30.2 Seconds (21.0-31.0); Potassium 3.8 mmol/L (3.5-5.1)
[2021-05-16 11:50] LABS: BUN Creatinine Ratio 55.1 (10-20); C Reactive Protein 9.15 mg/dl (0-0.29); Calcium 9.3 mg/dl (8.5-10.1); Creatinine Clr Calc Pharmacy 32.7 ml/min; Est GFR (African American) 56.1 ml/min; Est GFR (Non-African American) 48.4 ml/min
[2021-05-16 12:14] LABS: Ferritin 2855.7 ng/ml (8-388); Magnesium 2.7 mg/dl (1.8-2.4); Troponin I 0.055 ng/ml (0-0.045)
--- NOTE | 2021-05-16 13:07 | Electrocardiogram Report ---
Test Reason : Blood Pressure : / mmHG Vent. Rate : 094 BPM Atrial Rate : 094 BPM P-R Int : 140 ms QRS Dur : 076 ms QT Int : 366 ms P-R-T Axes : 058 071 -47 degrees QTc Int : 457 ms Sinus rhythm with sinus arrhythmia with occasional , and consecutive Premature ventricular complexes Abnormal ECG When compared with ECG of 09-MAY-2021 14:05, Premature ventricular complexes are now Present Premature atrial complexes are no longer Present Nonspecific T wave abnormality now evident in Lateral leads Confirmed by Cash Whaley ([id number]) on 05/16/2021 1:07:44 PM Referred By: REFERRED SELF Confirmed By:Cash Whaley
--- NOTE | 2021-05-16 23:57 | Hospitalist Progress Note ---
Date of Service May 16, 2021 Assessment & Plan (1) Pneumonia due to COVID-19 virus: Plan: This is an 89yo M with a PMH of paroxysmal A fib, HTN, DM II, LATONIA on CPAP, history of sinoatrial node dysfunction s/p pacemaker who presents with viral symptoms over the past few days and was found to have Covid pneumonia. Not being vaccinated for COVID-19 CXR with patchy interstitial and alveolar opacities bilaterally characteristic of a viral type pneumonitis and probable early Covid 19 pneumonia Was started on IV dexamethasone and Remdesivir Elevated inflammatory marker such as CRP 9.39 ESR decreased from 59 to 24 Patient was transition to high flow oxygen Continue guaifenesin, incentive spirometry and flutter valve Consult was placed to pulmonary but cancelled after discussed with pulm that recommended to continue current management Dexamethasone was increased to 10mg daily As per pulm, patient was not a candidate for baricitinib Discussed with nurse to continue encourage patient with self proning Daughter Delayne requests to discontinue remdesivir Due to side effect profile, Felecia was in agreement with that Continue High flow oxygen We will consult palliative care for goals of care Continue monitor closely (2) DARON (acute kidney injury): Plan: Cr elevated at 1.5 (baseline 1.1) in setting of poor PO intake. Received gentle fluid resuscitation. Avoid nephrotoxic agents when able. Creatinine 1.2 today Continue monitor BMP (3) Paroxysmal atrial fibrillation: Plan: Not on anticoagulation Rate is controlled Continue metoprolol 25mg daily (4) Diabetes mellitus, type II: Plan: Most recent Ha1c 6.7 on 05/10 Continue to holding metformin SSI while receiving IV dexamethasone during admission Continue monitor BS (5) Hx of sinoatrial node dysfunction: Plan: S/p pacemaker placement DVT Ppx: SQ heparin Code status: Changed to DNR as per patient wish and daughters in agreement with his decision PCP: Susan Dispo: Will discharge once medically stable Admission and Anticipated Discharge Date Admission Date: May 09, 2021 Subjective Pt was seen and examined for follow up of SOB due to covid 19 Lying in bed feeling very weak on high flow Nurse said he has not been eating or drinking Continue to require high flow oxygen supplement I told nurse to call his daughters that they can speak to him and encourage him to eat and drink Review of Systems Review of Systems: All systems reviewed & are unremarkable except as noted in Subjective Physical Exam Physical Exam: General- No acute distress Head- atraumatic Eyes- PERRL, EOMI, ENT- oropharynx clear Neck- supple, no JVD Lungs- diminished BS Heart- regular rhythm; no murmur Abdomen- normal bowel sounds, soft, nontender Extremities- no calf tenderness Neuro- alert, oriented x 3; PERRL, EOMI; no facial palsy; no dysarthria Skin- warm & dry Results & Data Results & Data ([facility]) Vital Signs (Past 12 Hours) Vital Signs Temp Pulse Pulse Resp BP Pulse Ox 05/16/21 22:43 35.6 C L 74 24 133/84 91 05/16/21 20:45 83 24 90 05/16/21 16:03 36.2 C L 97 H 24 155/90 H 88 L 05/16/21 14:45 20 91
[2021-05-17] MEDS ORDERED: SODIUM CHLORIDE 0.9% 1000ML 1,000 ML IV SCH (02:15)
[2021-05-17] MEDS ORDERED: SODIUM CHLORIDE 0.9% 500 ML IV SCH (02:15)
[2021-05-17] MEDS: dexAMETHasone 10 MG in SYRINGE 0 ML IV SCH (05:47)
[2021-05-17] MEDS: HEPARIN SOD 5,000 UNIT/0.5 ML VIAL SQ SCH ×3 (05:48→21:09)
[2021-05-17] MEDS: guaiFENesin 200 MG TAB PO SCH ×3 (05:48→21:08)
[2021-05-17 08:05] LABS: BUN Creatinine Ratio 62.5 (10-20); C Reactive Protein 3.73 mg/dl (0-0.29); Calcium 8.1 mg/dl (8.5-10.1); Creatinine Clr Calc Pharmacy 45.3 ml/min; Est GFR (Non-African American) 71.6 ml/min; Potassium 3.4 mmol/L (3.5-5.1)
[2021-05-17 08:38] LABS: Ferritin 2129.7 ng/ml (8-388); Troponin I 0.03 ng/ml (0-0.045)
[2021-05-17] MEDS: INSULIN ASPART 100 UNITS/ML 3 ML PEN SC SCH ×4 (09:02→21:10)
[2021-05-17] MEDS: METOPROLOL SUCC 25MG EXT REL TAB PO SCH (09:04)
[2021-05-17] MEDS: allopurinoL 300 MG TAB PO SCH (09:04)
[2021-05-17] MEDS ORDERED: POTASSIUM CHLORIDE CRTAB 20 MEQ TABCR PO STA (09:18)
--- NOTE | 2021-05-17 22:02 | Hospitalist Progress Note ---
Date of Service May 17, 2021 Assessment & Plan (1) Pneumonia due to COVID-19 virus: Plan: This is an 89yo M with a PMH of paroxysmal A fib, HTN, DM II, LATONIA on CPAP, history of sinoatrial node dysfunction s/p pacemaker who presents with viral symptoms over the past few days and was found to have Covid pneumonia. Not being vaccinated for COVID-19 CXR with patchy interstitial and alveolar opacities bilaterally characteristic of a viral type pneumonitis and probable early Covid 19 pneumonia Was started on IV dexamethasone and Remdesivir Inflammatory marker are trending down such as ESR 44, CRP 3.73 and ferritin 2128 Patient was transition to high flow oxygen Continue guaifenesin, incentive spirometry and flutter valve Consult was placed to pulmonary but cancelled after discussed with pulm that recommended to continue current management Dexamethasone was increased to 10mg daily As per pulm, patient was not a candidate for baricitinib Discussed with nurse to continue encourage patient with self proning Daughter Delayne requests to discontinue remdesivir Due to side effect profile, Felecia was in agreement with that Continue High flow oxygen Palliative care on board for goals of care Continue monitor closely (2) DARON (acute kidney injury): Plan: Cr elevated at 1.5 (baseline 1.1) in setting of poor PO intake. Received gentle fluid resuscitation. Avoid nephrotoxic agents when able. Creatinine 0.94 today Continue monitor BMP (3) Paroxysmal atrial fibrillation: Plan: Not on anticoagulation Rate is controlled Continue metoprolol 25mg daily (4) Diabetes mellitus, type II: Plan: Most recent Ha1c 6.7 on 05/10 Continue to holding metformin SSI while receiving IV dexamethasone during admission Continue monitor BS (5) Hx of sinoatrial node dysfunction: Plan: S/p pacemaker placement DVT Ppx: SQ heparin Code status: Changed to DNR as per patient wish and daughters in agreement with his decision PCP: Susan Dispo: Will discharge once medically stable Admission and Anticipated Discharge Date Admission Date: May 09, 2021 Subjective Pt was seen and examined for follow up of SOB due to covid 19 Lying in bed continue to require high flow oxygen supplement He said that he ate some food today Continue to feel very weak Review of Systems Review of Systems: All systems reviewed & are unremarkable except as noted in Subjective Physical Exam Physical Exam: General- No acute distress Head- atraumatic Eyes- PERRL, EOMI, ENT- oropharynx clear Neck- supple, no JVD Lungs- diminished BS Heart- regular rhythm; no murmur Abdomen- normal bowel sounds, soft, nontender Extremities- no calf tenderness Neuro- alert, oriented x 3; PERRL, EOMI; no facial palsy; no dysarthria Skin- warm & dry Results & Data Results & Data ([facility]) Vital Signs (Past 12 Hours) Vital Signs Temp Pulse Pulse Pulse Resp BP BP 05/17/21 19:41 36.3 C L 79 20 118/78 05/17/21 19:30 76 22 05/17/21 17:23 36.0 C L 78 22 122/70 05/17/21 14:20 88 05/17/21 11:30 36.7 C 76 20 129/85 05/17/21 10:51 20 Pulse Ox 05/17/21 19:41 91 05/17/21 19:30 90 05/17/21 17:23 92 05/17/21 14:20 05/17/21 11:30 96 05/17/21 10:51 92
[2021-05-18] MEDS: HEPARIN SOD 5,000 UNIT/0.5 ML VIAL SQ SCH ×3 (05:23→21:18)
[2021-05-18] MEDS: guaiFENesin 200 MG TAB PO SCH ×3 (05:24→21:18)
[2021-05-18] MEDS: dexAMETHasone 10 MG in SYRINGE 0 ML IV SCH (05:24)
[2021-05-18] MEDS: METOPROLOL SUCC 25MG EXT REL TAB PO SCH (08:18)
[2021-05-18] MEDS: allopurinoL 300 MG TAB PO SCH (08:18)
[2021-05-18] MEDS: INSULIN ASPART 100 UNITS/ML 3 ML PEN SC SCH ×4 (08:19→21:18)
[2021-05-18 10:59] LABS: Hematocrit (blood only) 43.1 % (42-52); Hemoglobin 14.5 g/dL (14.0-18.0); Mean Corpuscular Hemoglobin 31.3 pg (25-34); Mean Corpuscular Hgb Conc 33.6 g/dL (32-36); Mean Corpuscular Volume 92.9 fL (80-100); Mean Platelet Volume 11.9 fL (7.4-10.4); Platelet Count 164 K/uL (130-400); RDW Coefficient of Variation 14.5 % (11.5-14.5); Red Blood Count 4.64 M/uL (4.7-6.1); White Blood Count 18.61 K/uL (4.8-10.8)
--- NOTE | 2021-05-18 11:00 | Palliative Care Consultation ---
Date of Consultation May 18, 2021 Assessment & Plan (1) Palliative care encounter: This is an 89 year old male who presented to [facility] from [facility] with viral symptoms and positive for COVID-19 PNA. He was experiencing cough, decreased appetite, and decreased urine output. A CXR revealed pneumonitis. He has been on Highflow 90-100% 40L. Additional PMH includes: pAF, DM2, LATONIA on CPAP, SA node dysfunction s/p PM. Lengthy conversation was held and determined that he would not want to be on a ventilator and likely would not have a meaningful recovery. He also stated that he would not want CPR. He was changed to DNR/DNI. I met with Davian who was using accessory muscle with his breathing. He said "I'm tired and what is happening". We talked about his illness, I am not sure he was able to retain our conversation. I mentioned to him about giving him medicine to keep his breathing comfortable and that I think his body is slowly dying. He did not respond to that. I did ask him if he was fearful about his dying time and he just shook his head. He was unable to make meaningful fixed gaze eye contact with me due to intermittent confusion. He has been taking his High flow canula off multiple times per day. I did talk with the patients daughter Mauricio at [phone] and talked to her at length regarding her fathers condition. She and her sister Felecia are considering traveling here from [place] and [place]. Their other sister, who is local, is admitted with COVID herself. I did set expectation that he is becoming more tired and using additional accessory muscle for breathing. Suggested an ipad visitation before making that decision to travel across the country. She said she would contact me back at the palliative #. For now, continue current care and confirmed DNR/DNI. Palliative will follow. (2) SOB (shortness of breath): (3) COVID-19: (4) Weakness: (5) Pacemaker: History of Present Illness Reason for Consultation: goals of care Requesting Physician: Dr. Cortes Attending Physician: Ashley Cortes MD History of Present Illness This is an 89 year old male who presented to [facility] from [facility] with viral symptoms and positive for COVID-19 PNA. He was experiencing cough, decreased appetite, and decreased urine output. A CXR revealed pneumonitis. He has been on Highflow 90-100% 40L. Additional PMH includes: pAF, DM2, LATONIA on CPAP, SA node dysfunction s/p PM. Lengthy conversation was held and determined that he would not want to be on a ventilator and likely would not have a meaningful recovery. He also stated that he would not want CPR. He was changed to DNR/DNI. Palliative was consulted to discuss overall goals of care. Thanks for involving palliative medicine for this patient. Allergies Allergy/AdvReac Type Severity Reaction Status Date / Time aspirin AdvReac Unknown Verified 12/14/20 13:00 Home Medications Medication Instructions Recorded Confirmed Type allopurinol 300 mg tablet 300 mg PO DAILY 03/14/18 05/09/21 History metformin 500 mg tablet,extended 500 mg PO DAILY 05/09/21 05/09/21 History release 24 hr metoprolol succinate 25 mg 25 mg PO DAILY 05/09/21 05/09/21 History tablet,extended release 24 hr (Toprol XL) Patient History Medical History (Updated 05/18/21 @ 10:58 by ABBI Gonzalez) Depression Diabetes mellitus, type II Gout Hypertension LATONIA on CPAP Pacemaker Palliative care encounter Paroxysmal atrial fibrillation Prostate cancer Sepsis 10/2018 secondary to acute cholecystitis Surgical History H/O thumb surgery History of back surgery History of cholecystectomy 10/2018 Family History Brother Cancer Coronary heart disease Sister Breast cancer Social History Smoking Status: Former smoker Hx Alcohol Use: No Hx Substance Use: No Preferred Language: Setswana Communication Ability: Effective 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 also hospitalized with COVID. Feels Safe at Home: Yes Safety Concerns: Feels Safe At This Time Assistive Devices: Oxygen - Continuous Review of Systems Review of Systems: [place] System Assessment Scale: Pain: 0/3 SOB: 3/3 Anxiety: 1/3 Lack of Appetite: 2/3 palliative performance scale: 30% Physical Exam Constitutional: + ill appearing, + frail appearing and cooperative ENMT: Mouth: + dry oral mucous membranes Respiratory: + uses accessory muscles Auscultation: + diminished lung sounds and + rhonchi Cardiovascular: Rate/Rhythm: regular rate and regular rhythm Heart Sounds: normal S1 and normal S2 Extremities: normal capillary refill Gastrointestinal (Abdomen): Inspection/Auscultation: abdomen normal to inspection Percussion/Palpation: abdomen soft Skin: + pallor Psychiatric: Orientation: alert, oriented to person and cooperative Insight: + limited insight Judgement: + limited judgement Results & Data ([facility]) Vital Signs (Past 12 Hours) Vital Signs Temp Pulse Pulse Pulse Resp BP BP 05/18/21 08:04 66 26 H 05/18/21 08:00 36.7 C 68 18 116/78 05/18/21 07:29 74 05/18/21 06:00 05/18/21 04:00 36.8 C 81 20 120/81 05/18/21 03:29 71 28 H 05/17/21 23:02 36.5 C 69 20 123/81 05/17/21 22:59 68 22 Pulse Ox Pulse Ox 05/18/21 08:04 90 05/18/21 08:00 93 05/18/21 07:29 05/18/21 06:00 89 L 05/18/21 04:00 91 05/18/21 03:29 90 05/17/21 23:02 96 05/17/21 22:59 91 PG Care Time/CCT Total # of Minutes Spent Total Time Spent with Patient: Total time spent is greater than 50% in coordination of care (as documented) at patient's floor/unit and/or counseling patient: 100 minutes Coding Level of Care Code 43188 Initial Inpt Care Lvl 3 Diagnoses Palliative care encounter Z51.5 SOB (shortness of breath) R06.02 COVID-19 U07.1 Weakness R53.1 Pacemaker Z95.0 Time Spent (min) 100
[2021-05-18 11:36] LABS: C Reactive Protein 1.56 mg/dl (0-0.29); Calcium 9.2 mg/dl (8.5-10.1); Creatinine Clr Calc Pharmacy 40.1 ml/min; Est GFR (African American) 76.1 ml/min; Est GFR (Non-African American) 65.6 ml/min; Ferritin 1746.7 ng/ml (8-388); Magnesium 2.6 mg/dl (1.8-2.4); Phosphorus 3.5 mg/dl (2.5-4.9); Potassium 4.4 mmol/L (3.5-5.1)
--- NOTE | 2021-05-18 23:45 | Hospitalist Progress Note ---
Date of Service May 18, 2021 Assessment & Plan (1) Pneumonia due to COVID-19 virus: Plan: This is an 89yo M with a PMH of paroxysmal A fib, HTN, DM II, LATONIA on CPAP, history of sinoatrial node dysfunction s/p pacemaker who presents with viral symptoms over the past few days and was found to have Covid pneumonia. Not being vaccinated for COVID-19 CXR with patchy interstitial and alveolar opacities bilaterally characteristic of a viral type pneumonitis and probable early Covid 19 pneumonia Was started on IV dexamethasone and Remdesivir Inflammatory marker are trending down such as ESR 44, CRP 3.73 and ferritin 2128 Patient was transition to high flow oxygen Continue guaifenesin, incentive spirometry and flutter valve Consult was placed to pulmonary but cancelled after discussed with pulm that recommended to continue current management Dexamethasone was increased to 10mg daily As per pulm, patient was not a candidate for baricitinib Discussed with nurse to continue encourage patient with self proning Daughter Delayne requests to discontinue remdesivir Due to side effect profile, Felecia was in agreement with that Continue High flow oxygen Palliative care on board for goals of care Palliative care spoke to daughter over the phone Continue monitor closely (2) DARON (acute kidney injury): Plan: Cr elevated at 1.5 (baseline 1.1) in setting of poor PO intake. Received gentle fluid resuscitation. Avoid nephrotoxic agents when able. Creatinine 1.01 today Continue monitor BMP (3) Paroxysmal atrial fibrillation: Plan: Not on anticoagulation Rate is controlled Continue metoprolol 25mg daily (4) Diabetes mellitus, type II: Plan: Most recent Ha1c 6.7 on 05/10 Continue to holding metformin SSI while receiving IV dexamethasone during admission Continue monitor BS (5) Hx of sinoatrial node dysfunction: Plan: S/p pacemaker placement DVT Ppx: SQ heparin Code status: Changed to DNR as per patient wish and daughters in agreement with his decision PCP: Susan Dispo: Palliative tive care on board Admission and Anticipated Discharge Date Admission Date: May 09, 2021 Subjective Pt was seen and examined for follow up of SOB due to covid 19 Lying in bed continue to require high flow oxygen supplement Continue to feel very weak Review of Systems Review of Systems: All systems reviewed & are unremarkable except as noted in Subjective Physical Exam Physical Exam: General- No acute distress Head- atraumatic Eyes- PERRL, EOMI, ENT- oropharynx clear Neck- supple, no JVD Lungs- diminished BS Heart- regular rhythm; no murmur Abdomen- normal bowel sounds, soft, nontender Extremities- no calf tenderness Neuro- alert, oriented x 3; PERRL, EOMI; no facial palsy; no dysarthria Skin- warm & dry Results & Data Results & Data ([facility]) Vital Signs (Past 12 Hours) Vital Signs Temp Pulse Pulse Pulse Resp BP BP 05/18/21 23:03 36.3 C L 72 18 144/73 H 05/18/21 22:19 74 05/18/21 19:34 37.0 C 80 18 123/84 05/18/21 16:55 65 26 H 05/18/21 15:32 68 05/18/21 15:19 35.8 C L 82 22 118/73 05/18/21 14:12 67 26 H 05/18/21 11:59 36.3 C L 85 18 123/76 Pulse Ox 05/18/21 23:03 94 05/18/21 22:19 05/18/21 19:34 92 05/18/21 16:55 90 05/18/21 15:32 05/18/21 15:19 90 05/18/21 14:12 91 05/18/21 11:59 88 L
[2021-05-19] MEDS: HEPARIN SOD 5,000 UNIT/0.5 ML VIAL SQ SCH ×3 (05:03→20:41)
[2021-05-19] MEDS: dexAMETHasone 10 MG in SYRINGE 0 ML IV SCH (05:05)
[2021-05-19] MEDS: guaiFENesin 200 MG TAB PO SCH ×3 (05:05→20:41)
[2021-05-19] MEDS: allopurinoL 300 MG TAB PO SCH (08:14)
[2021-05-19] MEDS: METOPROLOL SUCC 25MG EXT REL TAB PO SCH (08:14)
[2021-05-19] MEDS: INSULIN ASPART 100 UNITS/ML 3 ML PEN SC SCH ×4 (08:14→20:40)
--- NOTE | 2021-05-19 17:22 | Hospitalist Progress Note ---
Date of Service May 19, 2021 Assessment & Plan (1) COVID-19: (2) Pneumonia: Plan: per Dr. Cortes's notes with addendum: (1) Pneumonia due to COVID-19 virus: Plan: This is an 89yo M with a PMH of paroxysmal A fib, HTN, DM II, LATONIA on CPAP, history of sinoatrial node dysfunction s/p pacemaker who presents with viral symptoms over the past few days and was found to have Covid pneumonia. Not being vaccinated for COVID-19 CXR with patchy interstitial and alveolar opacities bilaterally characteristic of a viral type pneumonitis and probable early Covid 19 pneumonia Was started on IV dexamethasone and Remdesivir Inflammatory marker are trending down such as ESR 44, CRP 3.73 and ferritin 2128 Patient was transition to high flow oxygen Continue guaifenesin, incentive spirometry and flutter valve Consult was placed to pulmonary but cancelled after discussed with pulm that recommended to continue current management Dexamethasone was increased to 10mg daily As per pulm, patient was not a candidate for baricitinib Discussed with nurse to continue encourage patient with self proning Daughter Delayne requests to discontinue remdesivir Due to side effect profile, Felecia was in agreement with that Continue High flow oxygen Palliative care on board for goals of care Palliative care spoke to daughter over the phone Continue monitor closely 05/19 still on high flow O2 40% continue Decadron IV continue Guifenesein, Incentive spirometry, Flutter valve, self proning repeat CXR today (2) DARON (acute kidney injury): Plan: Cr elevated at 1.5 (baseline 1.1) in setting of poor PO intake. Received gentle fluid resuscitation. Continue monitor BMP (3) Paroxysmal atrial fibrillation: Plan: Not on anticoagulation Rate is controlled Continue metoprolol 25mg daily (4) Diabetes mellitus, type II: Plan: Most recent Ha1c 6.7 on 05/10 Continue to holding metformin SSI while receiving IV dexamethasone during admission Continue monitor BS (5) Hx of sinoatrial node dysfunction: Plan: S/p pacemaker placement DVT Ppx: SQ heparin Code status: Changed to DNR as per patient wish and daughters in agreement with his decision PCP: Susan Dispo:pending Admission and Anticipated Discharge Date Admission Date: May 09, 2021 Subjective ff up for COVID pneumonia, hypoxia seen resting in bed, comfortable on high flow o2 40% awake, somewhat weak, but oriented x 2 answers most questions appropriately states he feels about the same denies worsening of dyspnea no chest pain, leg pain appetite is fair no other symptoms Review of Systems Review of Systems: all noted and negative except for above Physical Exam Physical Exam: General- oriented x 2, not in distress, speaks in sentences with no effort or accessory muscle use Eyes- anicteric Neck- no JVD Lungs-mild rales at the bases good air entry BL Heart- normal rate, regular rhythm; no murmurs Abdomen- normal bowel sounds, nondistended, soft, nontender Extremities- no pretibial edema, no calf tenderness Neuro- alert, oriented x2; no gross focal neurologic deficits Skin- warm & dry Results & Data Results & Data ([facility]) Vital Signs (Past 12 Hours) Vital Signs Temp Pulse Pulse Pulse Resp BP Pulse Ox 05/19/21 15:52 36.4 C L 89 20 108/79 95 05/19/21 15:34 73 05/19/21 15:26 91 H 24 93 05/19/21 11:55 36.4 C L 76 22 125/76 98 05/19/21 10:26 76 05/19/21 08:12 80 20 92 05/19/21 07:30 36.4 C L 67 22 125/76 94 05/19/21 06:00 Pulse Ox Pulse Ox 05/19/21 15:52 05/19/21 15:34 05/19/21 15:26 05/19/21 11:55 05/19/21 10:26 05/19/21 08:12 05/19/21 07:30 05/19/21 06:00 90 90 all noted and reviewed including below (1) Pneumonia Laterality: bilateral Lung location: unspecified part of lung Pneumonia type: due to unspecified organism Qualified Code(s): J18.9 - Pneumonia, unspecified organism
--- NOTE | 2021-05-19 18:05 | XRay Report ---
XR chest 1V portable CLINICAL HISTORY: ff up hypoxia, covid TECHNIQUE: Single frontal radiograph of the chest was obtained. Comparison: Comparison is made to chest one view 05/14/2021 FINDINGS: Dual lead pacemaker is unchanged. The aorta is tortuous. The remainder of the cardiomediastinal silho uette is unremarkable. Stable appearance of multifocal airspace opacities. No evidence of pleural eff usion or pneumothorax. IMPRESSION: Interval stability of multifocal airspace opacities compatible with history of viral. ACT 112: Negative or not required by law. Electronically signed by: Syed Duran M.D. 05/19/2021 6:04 PM
[2021-05-20] MEDS: dexAMETHasone 10 MG in SYRINGE 0 ML IV SCH (06:28)
[2021-05-20 06:29] LABS: Basophils # (auto) 0.01 K/uL (0-0.2); Basophils % (auto) 0.1 %; Hematocrit (blood only) 43.6 % (42-52); Hemoglobin 14.5 g/dL (14.0-18.0); Immature Granulocytes # (auto) 0.12 K/uL (0.00-0.02); Immature Granulocytes % (auto) 0.6 %; Lymphocytes # (auto) 4.37 K/uL (1.2-3.4); Mean Corpuscular Hemoglobin 30.9 pg (25-34); Mean Corpuscular Hgb Conc 33.3 g/dL (32-36); Mean Platelet Volume 12.4 fL (7.4-10.4); Monocytes # (auto) 0.37 K/uL (0.11-0.59); Monocytes % (auto) 1.9 %; Neutrophils # (auto) 14.95 K/uL (1.4-6.5); Neutrophils % (auto) 75.4 %; Platelet Count 146 K/uL (130-400); RDW Coefficient of Variation 14.6 % (11.5-14.5); RDW Standard Deviation 49.2 fL (36.4-46.3); Red Blood Count 4.69 M/uL (4.7-6.1); White Blood Count 19.82 K/uL (4.8-10.8)
[2021-05-20] MEDS: guaiFENesin 200 MG TAB PO SCH (06:29)
[2021-05-20] MEDS: HEPARIN SOD 5,000 UNIT/0.5 ML VIAL SQ SCH (06:29)
[2021-05-20 07:04] LABS: BUN Creatinine Ratio 53.9 (10-20); Calcium 9.6 mg/dl (8.5-10.1); Creatinine Clr Calc Pharmacy 47.6 ml/min; Est GFR (African American) 89.1 ml/min; Est GFR (Non-African American) 76.9 ml/min; Potassium 4.3 mmol/L (3.5-5.1)
[2021-05-20] MEDS: METOPROLOL SUCC 25MG EXT REL TAB PO SCH (08:24)
[2021-05-20] MEDS: allopurinoL 300 MG TAB PO SCH (08:24)
[2021-05-20] MEDS: INSULIN ASPART 100 UNITS/ML 3 ML PEN SC SCH ×2 (08:30→12:03)
--- NOTE | 2021-05-20 09:02 | Palliative Care Progress Note ---
Date of Service May 20, 2021 Assessment & Plan (1) Palliative care encounter: Plan: I met with Davian this morning. He had fixed gaze past me and was less interactive, just moaning to touch. No verbal stimuli for me today. On previous encounters, I did ask him if he was fearful about his dying time and he just shook his head. He remains on HighFlow FiO2 100% 60L I did talk with the patients daughter Mauricio at [phone] and explained that I believe despite our efforts his body has shown overall decline and when we can not fix what is happening looking at transitioning to a more comfort focused approach to his care. She wanted to discuss with her sister Felecia and then I spoke with her thereafter. After multiple conversations, all were in agreement to focus on a transition to comfort measures. We discussed IV fluids and its lack of benefit as the person declines and is actively dying. I talked about frequency of administration of the Morphine based on his response. They would prefer less frequent use, for now will have Morphine IV Q4 PRN. All non- essential medications to be discontinued and IV Morphine will be ordered (see below), along with IV Ativan and Robinul for audible secretions. All of the above communicated with the hospitalist and nursing. Life expectancy appears to be hours to a few days. Palliative will follow. 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 Ordering IV Morphine for air hunger/pain: Morphine 2 mg IV Q4 PRN Wean High flow to nasal canula and will increase Morphine frequency and have a low threshold for initiating a Morphine infusion. (3) COVID-19: (4) Weakness: (5) Pacemaker: Admission and Anticipated Discharge Date Admission Date: May 09, 2021 Subjective Pt minimally interactive today. Less fixed gaze than prior days. Maximized efforts taken with his care, has been on High-flow FiO2 100% 60L for multiple days with no improvement. More increased accessory muscle use See A/P for further details Review of Systems Review of Systems: [place] System Assessment Scale: Pain: 0/3 SOB: 3/3 Anxiety: 1/3 Lack of Appetite: 0/3 palliative performance scale: 12% Physical Exam Constitutional: + ill appearing, + frail appearing and cooperative ENMT: Mouth: + dry oral mucous membranes Respiratory: + uses accessory muscles Auscultation: + diminished lung sounds and + rhonchi Cardiovascular: Rate/Rhythm: regular rate and regular rhythm Heart Sounds: normal S1 and normal S2 Extremities: normal capillary refill Gastrointestinal (Abdomen): Inspection/Auscultation: abdomen normal to inspection Percussion/Palpation: abdomen soft Skin: + pallor Results & Data ([facility]) Vital Signs (Past 12 Hours) Vital Signs Temp Pulse Pulse Pulse Resp BP BP 05/20/21 08:19 05/20/21 08:16 36.6 C 76 12 111/71 05/20/21 04:10 36.5 C 83 20 120/78 05/20/21 02:55 81 20 05/19/21 23:35 83 05/19/21 23:22 36.7 C 86 20 121/75 05/19/21 21:10 90 20 Pulse Ox 05/20/21 08:19 97 05/20/21 08:16 91 05/20/21 04:10 91 05/20/21 02:55 93 05/19/21 23:35 05/19/21 23:22 91 05/19/21 21:10 90 PG Care Time/CCT Total # of Minutes Spent Total Time Spent with Patient: Total time spent is greater than 50% in coordination of care (as documented) at patient's floor/unit and/or counseling patient: 45 minutes Coding Level of Care Code 81484 Subseq Hosp Care Lvl 3 Diagnoses Palliative care encounter Z51.5 SOB (shortness of breath) R06.02 COVID-19 U07.1 Weakness R53.1 Pacemaker Z95.0 Time Spent (min) 45
[2021-05-20] MEDS ORDERED: GLYCOPYRROLATE 0.2 MG/ML VIAL IV PRN (12:02)
[2021-05-20] MEDS: MoRPHine SULFATE 2 MG/ML CARP IV PRN ×3 (12:29→22:26)
--- NOTE | 2021-05-20 19:25 | Hospitalist Progress Note ---
Date of Service May 20, 2021 delayed entry date of service noted above Assessment & Plan (1) COVID-19: (2) Pneumonia: Plan: per Dr. Cortes's notes with addendum: (1) Pneumonia due to COVID-19 virus: Plan: This is an 89yo M with a PMH of paroxysmal A fib, HTN, DM II, LATONIA on CPAP, history of sinoatrial node dysfunction s/p pacemaker who presents with viral symptoms over the past few days and was found to have Covid pneumonia. Not being vaccinated for COVID-19 CXR with patchy interstitial and alveolar opacities bilaterally characteristic of a viral type pneumonitis and probable early Covid 19 pneumonia Was started on IV dexamethasone and Remdesivir Inflammatory marker are trending down such as ESR 44, CRP 3.73 and ferritin 2128 Patient was transition to high flow oxygen Continue guaifenesin, incentive spirometry and flutter valve Consult was placed to pulmonary but cancelled after discussed with pulm that recommended to continue current management Dexamethasone was increased to 10mg daily As per pulm, patient was not a candidate for baricitinib Discussed with nurse to continue encourage patient with self proning Daughter Delayne requests to discontinue remdesivir Due to side effect profile, Felecia was in agreement with that Continue High flow oxygen Palliative care on board for goals of care Palliative care spoke to daughter over the phone Continue monitor closely 05/20 Palliative care discussed with patient's family regarding goals of care Transitioned to comfort measures status only (2) DARON (acute kidney injury): Plan: Cr elevated at 1.5 (baseline 1.1) in setting of poor PO intake. Received gentle fluid resuscitation. (3) Paroxysmal atrial fibrillation: Plan: Not on anticoagulation Rate is controlled Received metoprolol 25mg daily (4) Diabetes mellitus, type II: Plan: Most recent Ha1c 6.7 on 05/10 Continue to holding metformin Received insulin (5) Hx of sinoatrial node dysfunction: Plan: S/p pacemaker placement DVT Ppx: SQ heparin Code status: Changed to DNR as per patient wish and daughters in agreement with his decision PCP: Susan Dispo:pending Admission and Anticipated Discharge Date Admission Date: May 09, 2021 Subjective Follow-up for COVID-19 pneumonia, hypoxic respiratory failure, etc. Transition to comfort measures status only Seen at bedside, lethargic, not in distress No signs of respiratory distress or pain Review of Systems Review of Systems: all noted and negative except for above Physical Exam Physical Exam: General-lethargic, breathing with no accessory muscle use or effort Eyes- anicteric Neck- no JVD Lungs-mild rhonchi anteriorly Heart- normal rate, regular rhythm; no murmurs Abdomen- normal bowel sounds, nondistended, soft, nontender Extremities- no pretibial edema, no calf tenderness Neuro-lethargic Skin- warm & dry Results & Data Results & Data ([facility]) Vital Signs (Past 12 Hours) Vital Signs Temp Pulse Pulse Resp BP Pulse Ox 05/20/21 15:35 71 20 91 05/20/21 11:30 89 22 94 05/20/21 09:47 83 05/20/21 08:20 73 22 92 05/20/21 08:19 97 05/20/21 08:16 36.6 C 76 12 111/71 91 all noted and reviewed including below (1) Pneumonia Laterality: bilateral Lung location: unspecified part of lung Pneumonia type: due to unspecified organism Qualified Code(s): J18.9 - Pneumonia, unspecified organism
[2021-05-21] MEDS: MoRPHine SULFATE 2 MG/ML CARP IV PRN (11:43)
[2021-05-21] MEDS: LORazepam 1 MG/2 ML VIAL IV PRN (15:18)
--- NOTE | 2021-05-21 18:31 | Hospitalist Progress Note ---
Date of Service May 21, 2021 Assessment & Plan (1) COVID-19: (2) Pneumonia: Plan: per Dr. Cortes's notes with addendum: (1) Pneumonia due to COVID-19 virus: Plan: This is an 89yo M with a PMH of paroxysmal A fib, HTN, DM II, LATONIA on CPAP, history of sinoatrial node dysfunction s/p pacemaker who presents with viral symptoms over the past few days and was found to have Covid pneumonia. Not being vaccinated for COVID-19 CXR with patchy interstitial and alveolar opacities bilaterally characteristic of a viral type pneumonitis and probable early Covid 19 pneumonia Was started on IV dexamethasone and Remdesivir Inflammatory marker are trending down such as ESR 44, CRP 3.73 and ferritin 2128 Patient was transition to high flow oxygen Continue guaifenesin, incentive spirometry and flutter valve Consult was placed to pulmonary but cancelled after discussed with pulm that recommended to continue current management Dexamethasone was increased to 10mg daily As per pulm, patient was not a candidate for baricitinib Discussed with nurse to continue encourage patient with self proning Daughter Delayne requests to discontinue remdesivir Due to side effect profile, Felecia was in agreement with that Continue High flow oxygen Palliative care on board for goals of care Palliative care spoke to daughter over the phone Continue monitor closely 05/21 Palliative care discussed with patient's family regarding goals of care Transitioned to comfort measures status only Comfortable overall Continue as needed meds (2) DARON (acute kidney injury): Plan: Cr elevated at 1.5 (baseline 1.1) in setting of poor PO intake. Received gentle fluid resuscitation. (3) Paroxysmal atrial fibrillation: Plan: Not on anticoagulation Rate is controlled Received metoprolol 25mg daily (4) Diabetes mellitus, type II: Plan: Most recent Ha1c 6.7 on 05/10 Continue to holding metformin Received insulin (5) Hx of sinoatrial node dysfunction: Plan: S/p pacemaker placement DVT Ppx: SQ heparin Code status: Changed to DNR as per patient wish and daughters in agreement with his decision PCP: Susan Dispo:pending Admission and Anticipated Discharge Date Admission Date: May 09, 2021 Subjective Follow-up COVID-19 pneumonia, hypoxic respiratory failure, etc. Patient lethargic, unresponsive, not in distress Appears peaceful No signs of pain No other signs noted Review of Systems Review of Systems: all noted and negative except for above Physical Exam Physical Exam: General-unresponsive, lethargic, breathing with no effort or accessory muscle use Eyes- anicteric Neck- no JVD Lungs-mild rhonchi bilaterally, no rales/wheezes Heart- normal rate, regular rhythm; no murmurs Abdomen- normal bowel sounds, nondistended, soft, nontender Extremities- no pretibial edema, no calf tenderness Neuro-unresponsive Skin- warm & dry (1) Pneumonia Laterality: bilateral Lung location: unspecified part of lung Pneumonia type: due to unspecified organism Qualified Code(s): J18.9 - Pneumonia, unspecified organism
[2021-05-22] MEDS: MoRPHine SULFATE 2 MG/ML CARP IV PRN (06:06)
[2021-05-22] MEDS: LORazepam 1 MG/2 ML VIAL IV PRN (08:01)
[2021-05-22] MEDS ORDERED: STAT IV Infusion **Titration per Protocol STA (08:06)
[2021-05-22] MEDS ORDERED: MoRPHine SULFATE 4 MG/ML 1 ML CARP\\VIAL IV STA (08:06)
[2021-05-22] MEDS ORDERED: MoRPHine SULF/NSS 250 MG/250 ML BTL IV SCH (08:15)
--- NOTE | 2021-05-22 19:23 | Hospitalist Progress Note ---
Date of Service May 22, 2021 Assessment & Plan (1) COVID-19: (2) Pneumonia: Plan: per Dr. Cortes's notes with addendum: (1) Pneumonia due to COVID-19 virus: Plan: This is an 89yo M with a PMH of paroxysmal A fib, HTN, DM II, LATONIA on CPAP, history of sinoatrial node dysfunction s/p pacemaker who presents with viral symptoms over the past few days and was found to have Covid pneumonia. Not being vaccinated for COVID-19 CXR with patchy interstitial and alveolar opacities bilaterally characteristic of a viral type pneumonitis and probable early Covid 19 pneumonia Was started on IV dexamethasone and Remdesivir Inflammatory marker are trending down such as ESR 44, CRP 3.73 and ferritin 2128 Patient was transition to high flow oxygen Continue guaifenesin, incentive spirometry and flutter valve Consult was placed to pulmonary but cancelled after discussed with pulm that recommended to continue current management Dexamethasone was increased to 10mg daily As per pulm, patient was not a candidate for baricitinib Discussed with nurse to continue encourage patient with self proning Daughter Delayne requests to discontinue remdesivir Due to side effect profile, Felecia was in agreement with that Continue High flow oxygen Palliative care on board for goals of care Palliative care spoke to daughter over the phone Continue monitor closely 05/22 Palliative care discussed with patient's family regarding goals of care Transitioned to comfort measures status only Morphine drip started As needed scopolamine patch (2) DARON (acute kidney injury): Plan: Cr elevated at 1.5 (baseline 1.1) in setting of poor PO intake. Received gentle fluid resuscitation. (3) Paroxysmal atrial fibrillation: Plan: Not on anticoagulation Rate is controlled Received metoprolol 25mg daily (4) Diabetes mellitus, type II: Plan: Most recent Ha1c 6.7 on 05/10 Continue to holding metformin Received insulin (5) Hx of sinoatrial node dysfunction: Plan: S/p pacemaker placement DVT Ppx: SQ heparin Code status: Changed to DNR as per patient wish and daughters in agreement with his decision PCP: Susan Dispo:pending Admission and Anticipated Discharge Date Admission Date: May 09, 2021 Subjective ff up for acute hypoxic respiratory failure, COVID-19 pneumonia, etc. Started on morphine drip Seen resting in bed, not in distress, no signs of discomfort or pain Mild tachypnea No other signs noted Review of Systems Review of Systems: all noted and negative except for above Physical Exam Physical Exam: General-obtunded Lungs- mild rales bl (1) Pneumonia Laterality: bilateral Lung location: unspecified part of lung Pneumonia type: due to unspecified organism Qualified Code(s): J18.9 - Pneumonia, unspecified organism
[2021-05-22] MEDS ORDERED: SCOPOLAMINE 1 MG TDSY TD SCH (19:30)
[2021-05-23] MEDS ORDERED: CHECK SCOPOLAMINE PATCH PLACEMENT SCH
--- NOTE | 2021-05-23 00:35 | Death Pronouncement Note ---
Date of Service May 23, 2021 Pronouncement Note Admission Date Admission Date: May 09, 2021 Date and Time of Date of : 05/22/21 Time of : 23:53 Contributing Factors (1) COVID-19: (2) Pneumonia: Additional Data Confirmation of : no pulse, no respirations, no heart sounds and pupils fixed and dilated Family: contacted Attending physician: Homar Gold MD
--- NOTE | 2021-06-08 07:37 | Discharge Summary ---
Date of Service June 08, 2021 Admission HPI Per Admitting Provider This is an 89yo M with a PMH of paroxysmal A fib, HTN, LATONIA on CPAP, history of sinoatrial node dysfunction s/p pacemaker who presents with viral symptoms over the past few days. Has been lying in bed due to feeling poorly. was recently admitted in [facility] with covid. Is not vaccinated. Endorses generalized weakness, productive cough and poor appetite with limited PO intake. Decreased urinary output. Denies fever, chills, lightheadedness, chest pain, palpitations, abdominal pain, dysuria, diarrhea constipation. Patient is a poor historian and hard of hearing. History of memory issues per art review. Is alert and oriented to person, place and situation. Is unsure of home medications. Admission Exam (Per Admitting) Constitutional Physical Exam: Please see Dr. Garza's addendum for physical exam details. Lying in bed comfortably Constitutional: well developed, well nourished, + ill appearing and average body habitus Eyes: PERRL, conjunctivae normal, anicteric sclerae ENMT: external ear and nose normal, oropharynx normal Neck: trachea midline, no thyromegaly Respiratory: + cough (Occasional cough); no respirato ry distress Auscultation: + diminished lung sounds and + crackles (Minimal crackles at the bases); no wheezes Cardiovascular: Rate/Rhythm: regular rate and regular rhythm; not tachycardic Heart Sounds: normal S1, normal S2 and + murmur (2/6 ESM over precordium) Gastrointestinal (Abdomen): Inspection/Auscultation: normal bowel sounds; abdomen not distended Percussion/Palpation: abdomen soft; abdomen nontender Musculoskeletal: No acute arthritis in any joint Neurologic: Alert awake and oriented. May have minimal confusion. Generally weak but no focal sensory and/or motor neuro deficit Lymphatic: no cervical or axillary lymphadenopathy Discharge Data Consultations 05/09/21 15:35 ED Decision to Admit Stat 05/17/21 02:08 Consult Palliative Care Routine Hospital Course (1) COVID-19: (2) Pneumonia: per Dr. Cortes's notes with addendum: (1) Pneumonia due to COVID-19 virus: Plan: This is an 89yo M with a PMH of paroxysmal A fib, HTN, DM II, LATONIA on CPAP, history of sinoatrial node dysfunction s/p pacemaker who presents with viral symptoms over the past few days and was found to have Covid pneumonia. Not being vaccinated for COVID-19 CXR with patchy interstitial and alveolar opacities bilaterally characteristic of a viral type pneumonitis and probable early Covid 19 pneumonia Was started on IV dexamethasone and Remdesivir Inflammatory marker are trending down such as ESR 44, CRP 3.73 and ferritin 2129 Patient was transition to high flow oxygen Continue guaifenesin, incentive spirometry and flutter valve Consult was placed to pulmonary but cancelled after discussed with pulm that recommended to continue current management Dexamethasone was increased to 10mg daily As per pulm, patient was not a candidate for baricitinib Discussed with nurse to continue encourage patient with self proning Daughter Delayne requests to discontinue remdesivir Due to side effect profile, Felecia was in agreement with that Continue High flow oxygen Palliative care on board for goals of care Palliative care spoke to daughter over the phone Continue monitor closely 05/22 Palliative care discussed with patient's family regarding goals of care Transitioned to comfort measures status only Morphine drip started As needed scopolamine patch patient pronounced 05/22/21 (2) DARON (acute kidney injury): Plan: Cr elevated at 1.5 (baseline 1.1) in setting of poor PO intake. given Received gentle fluid resuscitation. (3) Paroxysmal atrial fibrillation: Plan: Not on anticoagulation Received metoprolol 25mg daily (4) Diabetes mellitus, type II: Plan: Most recent Ha1c 6.7 on 05/10 Received insulin (5) Hx of sinoatrial node dysfunction: Plan: S/p pacemaker placement
== END 2021-05-22 21:53 | disposition expired | DRG 177 ==
LOC: ED 13:43 → EDINP 17:12 → SUATTDRO 17:12 → EDINP 20:25 → 2N 05-10 17:58 → 2W 05-15 01:30 → 3N 05-22 00:08
DX: Z79.84 Long term (current) use of oral hypoglycemic drugs; U07.1 COVID-19; J12.82 Pneumonia due to coronavirus disease 2019; Z68.1 Body mass index [BMI] 19.9 or less, adult; Z51.5 Encounter for palliative care; G47.33 Obstructive sleep apnea (adult) (pediatric); N17.9 Acute kidney failure, unspecified; Z87.891 Personal history of nicotine dependence; Z95.0 Presence of cardiac pacemaker; I48.0 Paroxysmal atrial fibrillation; E11.9 Type 2 diabetes mellitus without complications; Z66 Do not resuscitate; I10 Essential (primary) hypertension; M10.9 Gout, unspecified; R64 Cachexia; Z79.82 Long term (current) use of aspirin; E86.0 Dehydration